=== PATIENT | female | born 1955 | race Caucasian/White ===

== ENCOUNTER 2016-10-13 14:16 | Inpatient (IN) ==
[2016-10-13] MEDS ORDERED: Ipratropium/Albuterol Neb 3 ML IH ONE ×2 (15:13→16:50)
[2016-10-13] MEDS ORDERED: Nitroglycerin 0.4 MG TAB.SUBL SL STA (15:13)
[2016-10-13 16:12] LABS: Basophils % 0.3 %; Eosinophils % 0.1 %; Hematocrit 32.2 % (35.3-44.9); Hemoglobin 10.7 g/dL (11.5-15.4); Immature Granulocytes % 1.1 % (0-4); Lymphocytes # 1.6 K/mcL (0.6-4.6); Mean Corpuscular HGB Conc 33.2 g/dL (31.6-35.5); Mean Corpuscular Volume 84.3 fL (83.0-100.0); Mean Platelet Volume 9.6 fL (9.4-12.4); Monocytes # 1.2 K/mcL (0.0-1.3); Neutrophils # 10.5 K/mcL (1.6-8.9); Platelet Count 323 K/mcL (140-400); Red Blood Count 3.82 M/mcL (3.82-4.97); Red Cell Distribution Width 13.2 % (11.5-14.5); Segmented Neutrophils % 77.5 %
[2016-10-13 16:26] LABS: Calcium 9.1 mg/dL (8.6-10.8); Potassium 4.3 mEq/L (3.5-4.5)
--- NOTE | 2016-10-13 16:38 | Emergency Department Note ---
Disposition Clinical Impression: Acute exacerbation of chronic obstructive airways disease, Hypertension Disposition: Admitted As Inpatient Condition: Good Time of Disposition: 18:23 SOB HPI - General Chief Complaint: ED Shortness of Breath/Dyspnea Stated Complaint: SCOTT Time Seen by Provider: 10/13/16 14:45 Source: patient, family Mode of arrival: ambulatory Limitations: no limitations Nursing Notes Reviewed: Yes Vital Signs Reviewed: Yes - History of Present Illness 61-year-old female with 2 weeks of nonproductive cough, shortness of breath, and orthopnea. Over these 2 weeks she has been seen in the urgent care twice and tried Rocephin, Cipro, and prednisone without significant improvement. Occasionally she feels this heaviness with her symptoms, but has not had any chest pain. She denies any productive cough, fevers, headache or confusion, neck pain, GI or symptoms, rashes or edema. She denies any estrogen use, recent travel or immobilization or surgery. Pt Subjective Complaint: shortness of breath - Related Data Home Medications Medication Instructions Recorded Confirmed Cholecalciferol (Vitamin D3) 2,000 unit PO DAILY 04/29/15 10/13/16 [Vitamin D3] Furosemide [Lasix] 40 mg PO BID 04/29/15 10/13/16 Labetalol HCl [Trandate] 300 mg PO BID 04/29/15 10/13/16 Losartan Potassium [Cozaar] 50 mg PO BID 04/29/15 10/13/16 Potassium Chloride [Klor-Con 10] 10 meq PO DAILY 04/29/15 10/13/16 Ramipril [Altace] 10 mg PO BID 04/29/15 10/13/16 Cephalexin [Keflex] 500 mg PO TID 10/13/16 10/13/16 CloNIDine HCl [Clonidine HCl] 0.3 mg PO TID 10/13/16 10/13/16 Fish Oil/Dha/Epa [Fish Oil 1,200 1 each PO DAILY 10/13/16 10/13/16 mg Fish Oil] Allergies Allergy/AdvReac Type Severity Reaction Status Date / Time amlodipine Allergy Nausea Verified 10/13/16 18:38 Hydralazine Allergy Nausea Verified 10/13/16 18:38 All systems ED: reviewed and negative except as stated. Past Medical History - Past Medical History Medical history: Reports: hypertension, renal disease Surgical history: Reports: , cholecystectomy, hysterectomy Psychiatric history: Reports: no psych history - Social History Smoking Status: Never smoker Smokeless Tobacco Status: No Alcohol use: Reports: none Drug use: Reports: none Physical Exam - General Limitations: no limitations General appearance: alert, in no apparent distress Course - Reevaluation(s) Reevaluation #1: Patient feeling much better after repeat DuoNeb's, but unfortunately she became very dyspneic with tachypnea to 26 and oxygen saturation 91% with ambulation. Patient does have congestive heart failure, but her primary issue on this stay appears to be COPD exacerbation. We will treat her with steroids and admit her to the hospitalist for further management. The patient will likely need an ultrasound to further evaluate her congestive heart failure. Time: 18:23 Reevaluation #2: Accepted by Dr. Leger for further mgmt. Time: 18:56 Vital Signs Temperature 99.1 F 10/13/16 14:18 Pulse Rate 89 10/13/16 14:18 Respiratory Rate 20 10/13/16 14:18 Blood Pressure 220/121 10/13/16 14:18 O2 Sat by Pulse Oximetry 92 L 10/13/16 14:18 Temperature 99.1 F 10/13/16 14:18 Pulse Rate 75 10/13/16 19:27 Respiratory Rate 18 10/13/16 19:27 Blood Pressure 220/110 10/13/16 19:27 O2 Sat by Pulse Oximetry 97 10/13/16 19:27 Oxygen Delivery Oxygen Delivery Nasal Cannula Shortness of Breath/Dyspnea - Lab Data Result diagrams: 10/13/16 15:38 10/13/16 15:38 Lab Results 10/13/16 10/13/16 10/13/16 Range/Units 15:38 15:38 15:38 WBC 13.5 H (4.3-11.1) K/mcL RBC 3.82 (3.82-4.97) M/mcL Hgb 10.7 L (11.5-15.4) g/dL Hct 32.2 L (35.3-44.9) % MCV 84.3 (83.0-100.0) fL MCH 28.0 (28.0-33.3) pg MCHC 33.2 (31.6-35.5) g/dL RDW 13.2 (11.5-14.5) % Plt Count 323 (140-400) K/mcL MPV 9.6 (9.4-12.4) fL Immature Gran % 1.1 (0-4) % Seg Neutrophils % 77.5 % Lymphocytes % 12.0 % Monocytes % 9.0 % Eosinophils % 0.1 % Basophils % 0.3 % Neutrophils # 10.5 H (1.6-8.9) K/mcL Lymphocytes # 1.6 (0.6-4.6) K/mcL Monocytes # 1.2 (0.0-1.3) K/mcL Eosinophils # 0.0 (0.0-0.6) K/mcL Basophils # 0.0 (0.0-0.2) K/mcL Sodium 140 (136-145) mEq/L Potassium 4.3 (3.5-4.5) mEq/L Chloride 103 (98-109) mEq/L Carbon Dioxide 24 (19-29) mEq/L BUN 49 H (7-20) mg/dL Creatinine 1.92 H (0.57-1.11) mg/dL Est GFR ( Amer) 32 L (> 60) Est GFR (Non-Af Amer) 27 L (> 60) BUN/Creatinine Ratio 26 (6-26) Glucose 107 H (70-99) mg/dL Calculated Osmolality 303 H (280-300) Calcium 9.1 (8.6-10.8) mg/dL Troponin I (0-0.03) ng/mL B-Natriuretic Peptide 200 H (0-100) pg/mL 10/13/16 Range/Units 15:38 WBC (4.3-11.1) K/mcL RBC (3.82-4.97) M/mcL Hgb (11.5-15.4) g/dL Hct (35.3-44.9) % MCV (83.0-100.0) fL MCH (28.0-33.3) pg MCHC (31.6-35.5) g/dL RDW (11.5-14.5) % Plt Count (140-400) K/mcL MPV (9.4-12.4) fL Immature Gran % (0-4) % Seg Neutrophils % % Lymphocytes % % Monocytes % % Eosinophils % % Basophils % % Neutrophils # (1.6-8.9) K/mcL Lymphocytes # (0.6-4.6) K/mcL Monocytes # (0.0-1.3) K/mcL Eosinophils # (0.0-0.6) K/mcL Basophils # (0.0-0.2) K/mcL Sodium (136-145) mEq/L Potassium (3.5-4.5) mEq/L Chloride (98-109) mEq/L Carbon Dioxide (19-29) mEq/L BUN (7-20) mg/dL Creatinine (0.57-1.11) mg/dL Est GFR ( Amer) (> 60) Est GFR (Non-Af Amer) (> 60) BUN/Creatinine Ratio (6-26) Glucose (70-99) mg/dL Calculated Osmolality (280-300) Calcium (8.6-10.8) mg/dL Troponin I 0.02 (0-0.03) ng/mL B-Natriuretic Peptide (0-100) pg/mL - EKG Data EKG attestation: Yes I reviewed and interpreted this EKG. EKG results narrative: Normal sinus rhythm at 73 with normal axis and intervals. No ST elevation or depression. No T-wave murmur or flattening. Precordial T waves are slightly prominent. They are somewhat more prominent than 07/23/2010. Attestation Statement - Attestation Attestation: Dr Singh note: Patient was seen in conjunction with resident Dr. Albin Mckenzie; please see his chart for complete documentation. I spent [id number] time with the patient and I agree with the patient's treatment and disposition. X-ray and blood work obtained and reviewed. Patient has persistent tachypnea and tachycardia. Symptoms have worsened over the past few days. Admission due to her progressive symptoms and comorbidities admitted in stable condition.
[2016-10-13] MEDS ORDERED: methylPREDNISolone 125 MG/2 ML VIAL IVP ONE (18:21)
[2016-10-13] MEDS ORDERED: cloNIDine HCl 0.1 MG TABLET PO ONE (18:39)
[2016-10-13] MEDS ORDERED: Furosemide 40 MG/4 ML VIAL IVP ONE (18:55)
[2016-10-13] MEDS ORDERED: *HR* Metoprolol 5 MG/5 ML VIAL IVP ONE (20:10)
[2016-10-13] MEDS ORDERED: Acetaminophen 325 MG TABLET PO PRN (20:32)
[2016-10-13] MEDS ORDERED: Naloxone 0.4 MG/ML INJ IVP PRN (20:32)
[2016-10-13] MEDS ORDERED: *HR* Promethazine 25 MG/ML VIAL IVP PRN (20:32)
[2016-10-13] MEDS ORDERED: *HR* OxyCODONE Immed Rel 5 MG TABLET PO PRN (20:32)
[2016-10-13] MEDS ORDERED: Albuterol 2.5 MG/3 ML NEBULIZER IH PRN (20:32)
[2016-10-13] MEDS ORDERED: *HR* Morphine 2 MG/ML SYRINGE IVP PRN (20:32)
[2016-10-13] MEDS ORDERED: *HR* LORazepam 2 MG/ML VIAL IVP STA (20:41)
[2016-10-13] MEDS ORDERED: Furosemide 40 MG TABLET PO SCH (21:00)
[2016-10-13 21:42] LABS: INR 1.1; Prothrombin Time 12.1 Seconds (9.4-12.1)
[2016-10-13 21:45] LABS: Activated Partial Thrombo Time 27.2 Seconds (26.0-36.0)
[2016-10-13 21:49] LABS: Magnesium 2.1 mg/dL (1.6-2.6); Phosphorous 4.7 mg/dL (2.3-4.7)
[2016-10-13] MEDS ORDERED: 0.9 % Sodium Chloride 500 ML IVC ONE (21:57)
[2016-10-13] MEDS ORDERED: 0.9 % Sodium Chloride 1,000 ML IVC SCH (22:15)
[2016-10-13] MEDS: Ipratropium/Albuterol Neb 3 ML IH SCH (22:26)
--- NOTE | 2016-10-13 22:59 | Internal Med History&Physical ---
<Jovana García - Last Filed: 10/13/16 23:52> Date of Encounter: 10/13/16 Time of Encounter: 21:00 Assessment and Plan (1) Acute respiratory failure with hypoxia Current visit: Yes Status: Acute When patient presented to the ED, her Oxygen sat was 92% and was placed on 2L nasal canula, which brought her O2 sat up to 97%. Etiology likely due to underlying lung infection. CXR showed cardiomegaly with pulmonary vascular congestion and edema. Consider possible CHF as underlying cause. Patient says she has had a previous diagnosis of CHF, no records of echo were found- limited echo pending Induced sputum culture pending Levaquin 750 daily- pharmacy to dose renally 40mg IV methylprednisolone Q6HR (2) Hypertensive urgency Current visit: Yes Status: Acute upon admission, patient's blood pressure was 220/110. Etiology likely multifactorial insetting of bronchitis, CHF, pulmonary edema. Continue clonidine, lasix, Imdur, Lisinopril Trend Cr, watch for signs of any end organ damage. (3) IgA nephropathy Current visit: Yes Status: Acute By History. Patient states that she has IgA nephropathy and sees Dr. Cannon in [place]. No records were found. (4) WESLY (acute kidney injury) Current visit: Yes Status: Acute Patient's Cr today is 1.92. Her baseline Cr is around 1.4 Etiology likely multifactorial in setting of underlying kidney disease and lung infection. 500mL bolus given, followed by continuous IV hydration at 80ml/hr Avoid nephrotoxic agents. (5) DVT prophylaxis Current visit: Yes Status: Acute Heparin 5,000 units SQ BID Internal Medicine - H&P: HPI Chief complaint: shortness of breath Admitted From: Home Plans for Post Hospital Care: Home History of present illness: Ms. Barnes is a 61 year old female with PMHx of HTN, IgA nephropathy (sees Dr. Cannon in [place]), CHF presented to the ED with CC of shortness of breath. She states that she has had bronchitis for a couple of weeks. SHe went to urgent care on September 29 and received prednisone, ciprofloxacin, ProAir. She was having symptoms of dry cough with occasional white/clear sputum production, wheezing, and being short of breath with very little exertion. These symptoms worsened despite steroids and antibiotics. She went back to urgent care on Oct 11 because of worsening symptoms. At that time, she received a steroid shot and an antibiotic shot (she does not recall the name). She was also prescribe cephalexin. She reports that CXR at urgent care did not show any acute process. The patient had not missed any doses of antibiotics that she received from urgent care. Patient also reports shortness of breath while laying flat and has to sleep with pillows propped up at night. Patient denies hemoptysis, chest pain, chills. She states that her left leg sometimes swells. She was told that during a previous hospitalization several years ago, she was diagnosed with CHF. No records were found. Social History: smoked as a teenager for a couple years, but has not smoked since. She denies alcohol and illicit drug use. Surgical history: 2 C-sections, hysterectomy 4 yeras ago, gall bladder surgery. Family History: Father: has COPD/Emphysema, CHF. Still living at 84 years old. Mother: at age 76 from pneumothorax from fall. Had DM , HTN. Sister: alive: has HTN, had thyroidectomy Brother: alive, has HTN Past Med Surg Social Fam HX - Past Medical History Medical history: hypertension, renal disease Psychiatric history: no psych history - Past Surgical History Surgical History: , cholecystectomy, hysterectomy - Social History Smoking Status: Never smoker Smokeless Tobacco Status: No Alcohol use: none Drug use: none - Family History Mother Living Status: Hx Family Endocrine Disorder: Yes (diabetes) Father Hx Family Cardiac Disorders: Yes Hx Family Respiratory Disorders: Yes Internal Medicine - H&P: Meds Cholecalciferol (Vitamin D3) [Vitamin D3] 2,000 unit PO DAILY 04/29/15 [History] Furosemide [Lasix] 40 mg PO BID 04/29/15 [History] Labetalol HCl [Trandate] 300 mg PO BID 04/29/15 [History] Losartan Potassium [Cozaar] 50 mg PO BID 04/29/15 [History] Potassium Chloride [Klor-Con 10] 10 meq PO DAILY 04/29/15 [History] Ramipril [Altace] 10 mg PO BID 04/29/15 [History] Cephalexin [Keflex] 500 mg PO TID 10/13/16 [History] CloNIDine HCl [Clonidine HCl] 0.3 mg PO TID 10/13/16 [History] Fish Oil/Dha/Epa [Fish Oil 1,200 mg Fish Oil] 1 each PO DAILY 10/13/16 [History] Allergies amlodipine Allergy (Verified 10/13/16 18:38) Nausea Hydralazine Allergy (Verified 10/13/16 18:38) Nausea All Systems PM: A 10-system review of systems was performed and is negative for pertinent findings except as documented above in the HPI. - Constitutional Constitutional: fatigue, fever(s), lethargy, no anorexia, no chills - EENT Eyes: no blurry vision, no change in vision Nose, mouth and throat: no dry mouth - Cardiovascular Cardiovascular ROS IM: orthopnea, no chest pain - Respiratory Respiratory: cough, dyspnea, wheezing - Gastrointestinal Gastrointestinal: no abdominal pain - Genitourinary Genitourinary: no hematuria - Musculoskeletal Musculoskeletal ROS IM: no arthralgias, no back pain, no joint swelling - Constitutional Vitals: Temp Pulse Resp BP Pulse Ox 98.2 F 75 18 210/98 98 10/13/16 21:46 10/13/16 21:46 10/13/16 22:27 10/13/16 21:46 10/13/16 22:27 General appearance: Present: A&O X 3, pleasant, no acute distress, answers questions appropriately - Head Head exam: Present: atraumatic, normocephalic - Neck Neck exam general surgery: Present: trachea midline - Respiratory Respiratory exam: Present: rhonchi, wheezes - Cardiovascular Cardiovascular exam: Present: RRR, +S1, +S2 - GI/Abdominal GI/Abdominal exam: Present: soft, no peritoneal signs. Absent: guarding, tenderness - Extremities Exam Extremities exam: Absent: cyanotic, pedal edema, tenderness - Neurological Exam Neurological exam: Present: alert, oriented X3, no focal deficits Internal Med - H&P Results - Labs CBC & Chem 7: 10/13/16 15:38 10/13/16 15:38 Labs: Cardiac Enzymes 10/13/16 Range/Units 21:29 Troponin I 0.01 (0-0.03) ng/mL <Kel Ramos - Last Filed: 10/14/16 04:12> Date of Encounter: 10/13/16 Assessment and Plan (1) Acute diastolic (congestive) heart failure Current visit: Yes Status: Acute . (2) Malignant hypertensive urgency Current visit: Yes Status: Acute . (3) Acute kidney injury superimposed on CKD Current visit: Yes Status: Acute . (4) Morbid obesity with BMI of 40.0-44.9, adult Current visit: Yes Status: Chronic . (5) Systemic inflammatory response syndrome (SIRS) Current visit: Yes Status: Acute . (6) Nonspecific syndrome suggestive of viral illness Current visit: Yes Status: Acute . (7) Viral upper respiratory tract infection with cough Current visit: Yes Status: Acute . (8) Hypertensive cardiomyopathy Current visit: Yes Status: Chronic . Qualifiers: Heart failure presence: with heart failure Qualified Code(s): I11.0 - Hypertensive heart disease with heart failure (9) Acute exacerbation of chronic obstructive airways disease Current visit: Yes Status: Acute . (10) Acute respiratory failure with hypoxia Current visit: Yes Status: Acute (11) Hypertension Current visit: Yes Status: Chronic . Qualifiers: Hypertension type: unspecified secondary hypertension Qualified Code(s): I15.9 - Secondary hypertension, unspecified; I15 - Secondary hypertension (12) Nephrotic range proteinuria Current visit: Yes Status: Chronic . (13) IgA nephropathy Current visit: Yes Status: Acute Internal Medicine - H&P: HPI History of present illness: Ms. Barnes is a 61 year old female The patient was visited and interviewed and examined. I examined this patient and my medical decision-making was reviewed with the Resident Physician. I agree with the documented findings, disposition and treatment plan as described except to the extent set forth below. Cumulative laboratory and radiographic data base were reviewed and considered and discussed. Pertinent ancillary medical records including ECW and PCI documentation, when available was reviewed and considered. Given the patient's presenting concerns, past medical history, clinical findings and symptoms, she is admitted to medical further evaluation and disposition. Orders were written as per the computerized physician order increase system............... Past Med Surg Social Fam HX - Past Medical History Source: old records reviewed Medical history: arthritis, cardiomyopathy, osteoporosis, renal disease, other Psychiatric history: other - Past Surgical History Surgical History: , cholecystectomy, hysterectomy, orthopedic, other ( left elbow surgery.), LINDA/BSO, other (Tubal ligation.) All Systems PM: A 10-system review of systems was performed and is negative for pertinent findings except as documented above in the HPI. - Constitutional Vitals: Temp Pulse Resp BP Pulse Ox 97.2 F L 73 18 165/70 98 10/14/16 03:02 10/14/16 03:02 10/14/16 03:11 10/14/16 03:02 10/14/16 03:11 Internal Med - H&P Results - Labs CBC & Chem 7: 10/13/16 15:38 10/13/16 15:38 Labs: Cardiac Enzymes 10/13/16 Range/Units 21:29 Troponin I 0.01 (0-0.03) ng/mL Urine 10/14/16 Range/Units 03:08 Urine Color Yellow (Yellow) Urine Clarity Clear (Clear) Urine pH 6.0 (5.0-8.0) pH Units Ur Specific [place] 1.009 L (1.010-1.025) Urine Protein >=300 H (Neg-Trace) mg/dL Urine Glucose (UA) Normal (Normal) mg/dL - ABG Interpretation ABG results: 10/14/16 00:49 VBG pH 7.38 VBG pCO2 50 VBG pO2 50 H VBG HCO3 29.6 H - Impressions Vital Signs Temp Pulse Resp BP Pulse Ox 10/14/16 03:11 18 98 10/14/16 03:02 97.2 F L 73 17 165/70 97 10/13/16 23:56 98.1 F 89 18 214/102 95 10/13/16 22:27 18 98 10/13/16 21:46 98.2 F 75 16 210/98 96 10/13/16 21:12 20 220/107 10/13/16 19:27 75 18 220/110 97 10/13/16 18:00 75 18 216/109 96 10/13/16 17:00 75 18 196/99 97 10/13/16 15:20 16 97 10/13/16 14:25 95 10/13/16 14:18 99.1 F 89 20 220/121 92 L Intake and Output 10/13/16 10/13/16 10/14/16 15:59 23:59 07:59 Intake Total 0 / 0 Output Total 800 / 800 Balance 0 / 0 -800 / -800 Intake: Oral 0 / 0 Output: Urine 800 / 800 Other: # Voids 1 Weight 113.398 kg 114 kg Short CBC 10/13/16 Range/Units 15:38 WBC 13.5 H (4.3-11.1) K/mcL Hgb 10.7 L (11.5-15.4) g/dL Hct 32.2 L (35.3-44.9) % Plt Count 323 (140-400) K/mcL Neutrophils # 10.5 H (1.6-8.9) K/mcL BMP 10/13/16 Range/Units 15:38 Sodium 140 (136-145) mEq/L Potassium 4.3 (3.5-4.5) mEq/L Chloride 103 (98-109) mEq/L Carbon Dioxide 24 (19-29) mEq/L BUN 49 H (7-20) mg/dL Creatinine 1.92 H (0.57-1.11) mg/dL Glucose 107 H (70-99) mg/dL Calcium 9.1 (8.6-10.8) mg/dL Cardiac Enzymes 10/13/16 10/13/16 Range/Units 21:29 15:38 Troponin I 0.01 0.02 (0-0.03) ng/mL Urine 10/14/16 Range/Units 03:08 Urine Color Yellow (Yellow) Urine Clarity Clear (Clear) Urine pH 6.0 (5.0-8.0) pH Units Ur Specific [place] 1.009 L (1.010-1.025) Urine Protein >=300 H (Neg-Trace) mg/dL Urine Glucose (UA) Normal (Normal) mg/dL 10/14/16 00:49 VBG pH 7.38 VBG pCO2 50 VBG pO2 50 H VBG HCO3 29.6 H Abnormal lab results WBC 13.5 K/mcL (4.3-11.1) H 10/13/16 15:38 Hgb 10.7 g/dL (11.5-15.4) L 10/13/16 15:38 Hct 32.2 % (35.3-44.9) L 10/13/16 15:38 Neutrophils # 10.5 K/mcL (1.6-8.9) H 10/13/16 15:38 VBG pO2 50 mmHg (25-40) H 10/14/16 00:49 VBG HCO3 29.6 mEq/L (21-27) H 10/14/16 00:49 BUN 49 mg/dL (7-20) H 10/13/16 15:38 Creatinine 1.92 mg/dL (0.57-1.11) H 10/13/16 15:38 Est GFR ( Amer) 32 (> 60) L 10/13/16 15:38 Est GFR (Non-Af Amer) 27 (> 60) L 10/13/16 15:38 Glucose 107 mg/dL (70-99) H 10/13/16 15:38 Calculated Osmolality 303 (280-300) H 10/13/16 15:38 B-Natriuretic Peptide 200 pg/mL (0-100) H 10/13/16 15:38 Ur Specific [place] 1.009 (1.010-1.025) L 10/14/16 03:08 Urine Protein >=300 mg/dL (Neg-Trace) H 10/14/16 03:08 Urine Blood Large (Negative) H 10/14/16 03:08 Urine Microscopic RBC 15-30 per hpf (0-3) H 10/14/16 03:08 Ur Squamous Epith Cells Many per lpf (None-Few) H 10/14/16 03:08 Allergies Allergy/AdvReac Type Severity Reaction Status Date / Time amlodipine Allergy Nausea Verified 10/13/16 18:38 Hydralazine Allergy Nausea Verified 10/13/16 18:38 Laboratory Results WBC 13.5 K/mcL (4.3-11.1) H 10/13/16 15:38 RBC 3.82 M/mcL (3.82-4.97) 10/13/16 15:38 Hgb 10.7 g/dL (11.5-15.4) L 10/13/16 15:38 Hct 32.2 % (35.3-44.9) L 10/13/16 15:38 MCV 84.3 fL (83.0-100.0) 10/13/16 15:38 MCH 28.0 pg (28.0-33.3) 10/13/16 15:38 MCHC 33.2 g/dL (31.6-35.5) 10/13/16 15:38 RDW 13.2 % (11.5-14.5) 10/13/16 15:38 Plt Count 323 K/mcL (140-400) 10/13/16 15:38 MPV 9.6 fL (9.4-12.4) 10/13/16 15:38 Immature Gran % 1.1 % (0-4) 10/13/16 15:38 Seg Neutrophils % 77.5 % 10/13/16 15:38 Lymphocytes % 12.0 % 10/13/16 15:38 Monocytes % 9.0 % 10/13/16 15:38 Eosinophils % 0.1 % 10/13/16 15:38 Basophils % 0.3 % 10/13/16 15:38 Neutrophils # 10.5 K/mcL (1.6-8.9) H 10/13/16 15:38 Lymphocytes # 1.6 K/mcL (0.6-4.6) 10/13/16 15:38 Monocytes # 1.2 K/mcL (0.0-1.3) 10/13/16 15:38 Eosinophils # 0.0 K/mcL (0.0-0.6) 10/13/16 15:38 Basophils # 0.0 K/mcL (0.0-0.2) 10/13/16 15:38 PT 12.1 Seconds (9.4-12.1) 10/13/16 21:29 INR 1.1 10/13/16 21:29 APTT 27.2 Seconds (26.0-36.0) 10/13/16 21:29 VBG pH 7.38 pH Units (7.32-7.42) 10/14/16 00:49 VBG pCO2 50 mmHg (41-51) 10/14/16 00:49 VBG pO2 50 mmHg (25-40) H 10/14/16 00:49 VBG HCO3 29.6 mEq/L (21-27) H 10/14/16 00:49 Sodium 140 mEq/L (136-145) 10/13/16 15:38 Potassium 4.3 mEq/L (3.5-4.5) 10/13/16 15:38 Chloride 103 mEq/L (98-109) 10/13/16 15:38 Carbon Dioxide 24 mEq/L (19-29) 10/13/16 15:38 BUN 49 mg/dL (7-20) H 10/13/16 15:38 Creatinine 1.92 mg/dL (0.57-1.11) H 10/13/16 15:38 Est GFR ( Amer) 32 (> 60) L 10/13/16 15:38 Est GFR (Non-Af Amer) 27 (> 60) L 10/13/16 15:38 BUN/Creatinine Ratio 26 (6-26) 10/13/16 15:38 Glucose 107 mg/dL (70-99) H 10/13/16 15:38 Calculated Osmolality 303 (280-300) H 10/13/16 15:38 Calcium 9.1 mg/dL (8.6-10.8) 10/13/16 15:38 Phosphorus 4.7 mg/dL (2.3-4.7) 10/13/16 21:29 Magnesium 2.1 mg/dL (1.6-2.6) 10/13/16 21:29 Troponin I 0.01 ng/mL (0-0.03) 10/13/16 21:29 B-Natriuretic Peptide 200 pg/mL (0-100) H 10/13/16 15:38 Urine Color Yellow (Yellow) 10/14/16 03:08 Urine Clarity Clear (Clear) 10/14/16 03:08 Urine pH 6.0 pH Units (5.0-8.0) 10/14/16 03:08 Ur Specific [place] 1.009 (1.010-1.025) L 10/14/16 03:08 Urine Protein >=300 mg/dL (Neg-Trace) H 10/14/16 03:08 Urine Glucose (UA) Normal mg/dL (Normal) 10/14/16 03:08 Urine Ketones Negative mg/dL (Negative) 10/14/16 03:08 Urine Blood Large (Negative) H 10/14/16 03:08 Urine Nitrite Negative (Negative) 10/14/16 03:08 Urine Bilirubin Negative (Negative) 10/14/16 03:08 Urine Urobilinogen Normal mg/dL (Normal) 10/14/16 03:08 Ur Leukocyte Esterase Negative (Negative) 10/14/16 03:08 Urine Microscopic RBC 15-30 per hpf (0-3) H 10/14/16 03:08 Urine Microscopic WBC 0-3 per hpf (0-3) 10/14/16 03:08 Ur Squamous Epith Cells Many per lpf (None-Few) H 10/14/16 03:08 Urine Bacteria None Seen per hpf (None-Few) 10/14/16 03:08 Hyaline Casts None Seen per lpf (None-Few) 10/14/16 03:08 Impressions Chest X-Ray 10/13/16 14:45 IMPRESSION: Pulmonary edema D/ / Ag May MD / Ag May MD Interpreting Provider: Ag May MD - Attending Attestation My signature below is to certify that this patient is under my care and that I, or the Resident Physician working with me, has had a [id number] encounter with this patient. Plan of care has been reviewed and discussed in detail with the patient. Questions addressed. Aunt care directive discussion briefly addressed. The patient is not to clear any healthcare restrictions at this time. Outpatient medications schedules will be reviewed, confirmed associated as appropriate. Reconciliation of home treatments including adjustments, substitutions and reintroduction into the treatment regimen will address necessary maintenance therapies for chronic pre-existing medical conditions. Smoking cessation counseling for the addressed. The patient declared herself as nonsmoker. Hospital course is dependent upon collective clinical findings, treatment response and potential consultative interventions. The patient is at risk for further acute clinical decline and morbidity given presenting chief complaints, clinical findings and associated comorbidities. Condition is serious. Prognosis is cautiously optimistic. CODE STATUS is full.
[2016-10-13] MEDS ORDERED: Levofloxacin 750 MG/150 ML 750 MG/150 ML BAG IVPB SCH (23:00)
[2016-10-13] MEDS: cloNIDine HCl 0.1 MG TABLET PO SCH (23:11)
[2016-10-13] MEDS: MethylPREDNISolone 40 MG/ML VIAL IVP SCH (23:11)
[2016-10-13] MEDS: Lisinopril 20 MG TABLET PO SCH (23:11)
[2016-10-14 01:46] LABS: VBG HCO3 29.6 mEq/L (21-27); VBG PH 7.38 pH Units (7.32-7.42)
[2016-10-14] MEDS: Ipratropium/Albuterol Neb 3 ML IH SCH ×4 (03:11→22:34)
[2016-10-14 03:19] LABS: Bilirubin,Urine Negative (Negative); Blood,Urine Large (Negative); Clarity,Urine Clear (Clear); Color,Urine Yellow (Yellow); Glucose,Urine (UA) Normal (Normal); Ketones,Urine Negative (Negative); Leukocyte Esterase,Urine Negative (Negative); Nitrite,Urine Negative (Negative); Protein,Urine >=300 mg/dL (Neg-Trace); Specific Gravity,Urine 1.009 (1.010-1.025); Urobilinogen,Urine Normal (Normal)
[2016-10-14 03:20] LABS: Bacteria,Urine None Seen per hpf (None-Few); Hyaline Casts,Urine None Seen per lpf (None-Few); RBC,Urine 15-30 per hpf (0-3); Squamous Epithelial Cell,Urine Many per lpf (None-Few); WBC,Urine 0-3 per hpf (0-3)
[2016-10-14] MEDS: *HR* Heparin 5,000 UNIT/ML VIAL SQ SCH ×4 (03:23→22:22)
[2016-10-14 04:00] LABS: Hematocrit 31.1 % (35.3-44.9); Hemoglobin 10.2 g/dL (11.5-15.4); Mean Corpuscular HGB Conc 32.8 g/dL (31.6-35.5); Mean Corpuscular Hemoglobin 27.5 pg (28.0-33.3); Mean Corpuscular Volume 83.8 fL (83.0-100.0); Mean Platelet Volume 9.4 fL (9.4-12.4); Platelet Count 321 K/mcL (140-400); Red Blood Count 3.71 M/mcL (3.82-4.97); Red Cell Distribution Width 13.2 % (11.5-14.5)
[2016-10-14 04:18] LABS: Calcium 8.7 mg/dL (8.6-10.8); Chol/HDL Ratio 7.2 (0-4.9); Potassium 4.6 mEq/L (3.5-4.5)
[2016-10-14 05:34] LABS: Adenovirus Not Detected (Not Detect); Bordetella Pertussis Not Detected (Not Detect); Chlamydophila pneumoniae Not Detected (Not Detect); Coronavirus 229E Not Detected (Not Detect); Coronavirus HKU1 Not Detected (Not Detect); Coronavirus NL63 Not Detected (Not Detect); Coronavirus OC43 Not Detected (Not Detect); Human Metapneumovirus Not Detected (Not Detect); Human Rhinovirus/Enterovirus Not Detected (Not Detect); Influenza A Subtype 2009 H1 Not Detected (Not Detect); Influenza A Untypeable Not Detected (Not Detect); Influenza B Not Detected (Not Detect); Mycoplasma pneumoniae Not Detected (Not Detect); Parainfluenza Virus 1 Not Detected (Not Detect); Parainfluenza Virus 2 Not Detected (Not Detect); Parainfluenza Virus 3 Not Detected (Not Detect); Parainfluenza Virus 4 Not Detected (Not Detect); Respiratory Syncytial Virus ***DETECTED*** (Not Detect)
[2016-10-14] MEDS: MethylPREDNISolone 40 MG/ML VIAL IVP SCH ×2 (05:55→10:06)
[2016-10-14] MEDS ORDERED: predniSONE 20 MG TABLET PO SCH (09:00)
[2016-10-14] MEDS: cloNIDine HCl 0.1 MG TABLET PO SCH ×3 (10:05→19:33)
[2016-10-14] MEDS: Lisinopril 20 MG TABLET PO SCH ×2 (10:06→19:33)
[2016-10-14] MEDS: Furosemide 40 MG/4 ML VIAL IVP SCH ×2 (10:06→16:02)
--- NOTE | 2016-10-14 11:13 | ECHO - Doppler Report ---
Echocardiogram Name: Bridgette Barnes Date of Study: 10/14/2016 Date: 1955 Ht: 64.0 in Medical Record#: [id number] Age: 61 Wt: 251.0 lb Gender: Female BSA: 2.15 Order #: [id number] Location: [facility] Room #: 2A23 Reading Physician: Quan Mckinley MD, [facility]ED WITH [facility] Community Health Advisor: Manuela Lassiter RVT Ordering Physician: Jovana García DO Primary Physician: None Indications: Congestive heart failure Impressions: Normal left ventricular size and systolic function, LVEF 60%. Moderate left ventricular diastolic dysfunction. Normal right ventricular size and function. Mildly dilated left atrium. Mild mitral regurgitation. Unable to estimate RVSP due to lack of TR jet. Left Ventricular Wall Motion: Rest Echo Findings All wall segments showed normal motion. Findings: Study Quality * Suboptimal echo windows. ECG Findings * Normal sinus rhythm. Left Ventricle * Normal left ventricular size and systolic function, LVEF 60%. * Normal LV wall thickness. * Moderate left ventricular diastolic dysfunction. Right Ventricle * Normal right ventricular size and function. Left Atrium * Mildly dilated left atrium. Right Atrium * Normal right atrial size. Aorta * Normally sized aortic root. Pericardium * There is a trivial pericardial effusion present. IVC * Normal IVC dimensions and inspiratory collapse. Aortic Valve * Aortic valve not well visualized. * No aortic stenosis. * No aortic regurgitation. Mitral Valve * Mild mitral annular calcification * No mitral stenosis. * Mild mitral regurgitation. Tricuspid Valve * Tricuspid valve not well visualized. * No tricuspid stenosis. * Trace tricuspid regurgitation. * Unable to estimate RVSP due to lack of TR jet. Pulmonic Valve * Pulmonic valve not well visualized. * No pulmonic stenosis. * No pulmonic regurgitation. History Hypertension Family History of CAD Congestive Heart Failure Measurements: BP: 185/ 83 2D Normal Values RVIDd: 3.20 cm IVSd: .80 cm 0.6 - 1.0 cm LVIDd: 5.20 cm 3.7 - 5.6 cm LVPWd: .90 cm 0.6 - 1.1 cm LVIDs: 3.20 cm 1.5 - 3.6 cm AO: 2.70 cm < 4.0 cm LA volume: 80 Mitral Valve Peak E:1.50 m/sec Peak A:1.47 m/sec E/A Ratio:1 Updated by Quan Mckinley MD, [facility] on 10/14/2016 11:07:57 AM electronically signed on 10/14/2016 11:08:42 AM with status of Final Wall Motion Sorto: 1=Normal, 2=Hypokinesis, 3=Akinesis, 4=Dyskinesis, 5=Aneurysmal, 6=Hyperkinetic, X=Not Visualized (Blank)=Missing
--- NOTE | 2016-10-14 11:29 | Electrocardiograph Report ---
[facility] Test Date: 2016-10-13 Pat Name: Bridgette Barnes Department: 104 Room: 2A23 Gender: F Hog Counter: MEHUL : 1955 Requested By: Adolfo Mckenzie Order Number: [id number] Reading MD: Edmar Giraldo MD Measurements Intervals [place] Rate: 73 P: 26 TN: 169 QRS: -11 QRSD: 93 T: 17 QT: 378 QTc: 404 Interpretive Statements SINUS RHYTHM Electronically Signed On 10-14-16 11:27:13 EST by Edmar Giraldo MD
[2016-10-14] MEDS ORDERED: *HR* OxyCODONE Immed Rel 5 MG TABLET PO PRN ×2 (12:23→12:24)
[2016-10-14] MEDS ORDERED: Ondansetron 4 MG/2 ML VIAL IVP PRN (13:10)
--- NOTE | 2016-10-14 15:36 | Internal Med Progress Note ---
Date of Encounter: 10/14/16 Time of Encounter: 11:30 - Assessment and plan (1) Pulmonary edema Current Visit: Yes Status: Acute Assessment and plan: Likely related to hypertensive urgency from poorly controlled hypertension at baseline with recent acute bronchitis. Patient completed at least 2 courses of steroids and antibiotics (ciprofloxacin, cephalexin) as an outpatient with no improvement in shortness of breath. To rule out cardiogenic pulmonary edema. Discontinue IV hydration and Start IV Lasix along with fluid restriction and urine output monitoring. Check 2-D echocardiogram to assess left ventricular systolic function and EF. Hold antibiotics and IV steroids at this time as it does not appear to be an acute episode of COPD. Continue oral low-dose prednisone. Supportive care with supplemental oxygen as needed. High risk patient with high risk of worsening respiratory failure. Qualifiers: Chronicity: acute Qualified Code(s): J81.0 - Acute pulmonary edema (2) Acute respiratory failure with hypoxia Current Visit: Yes Status: Acute Assessment and plan: Due to pulmonary edema. Plan as above. Continue supplemental oxygen and wean down FiO2 as tolerated. (3) Hypertensive urgency Current Visit: Yes Status: Acute Assessment and plan: Noted to have poorly controlled hypertension at baseline. Noted to be on multiple antihypertensives, follows up with nephrology. We will resume home meds at this time. (4) IgA nephropathy Current Visit: Yes Status: Chronic Assessment and plan: Follows with nephrology as outpatient. Noted to have acute on chronic renal failure. Baseline serum creatinine around 1.4 and presently does 1.9. She does require IV diuretics, monitor serum creatinine closely. (5) Hypertension Current Visit: Yes Status: Chronic Qualifiers: Hypertension type: essential hypertension Qualified Code(s): I10 - Essential (primary) hypertension - Subjective Interval history: Reports feeling better. Improving shortness of breath, continues to require oxygen. Intermittent dry cough. No fever, chills, nausea, chest pain. Reports having chronic issues with blood pressure control and does follow with diabetes trainer for the same. - Constitutional Vitals: Temp Pulse Resp BP Pulse Ox 98.2 F 83 16 148/89 96 10/14/16 11:06 10/14/16 11:06 10/14/16 15:15 10/14/16 11:17 10/14/16 15:15 General appearance: Present: A&O X 3, obese, answers questions appropriately - Head Head exam: Present: atraumatic, normocephalic - Neck Neck exam general surgery: Present: supple, trachea midline. Absent: lymphadenopathy - Respiratory Respiratory exam: Present: rales (Faint Inspiratory crackles at bilateral bases , intermittent rhonchi). Absent: accessory muscle use, rhonchi, wheezes - Cardiovascular Cardiovascular exam: Present: RRR, +S1, +S2. Absent: diastolic murmur, gallop, rubs, systolic murmur - GI/Abdominal GI/Abdominal exam: Present: normal bowel sounds, soft (Obese), no peritoneal signs. Absent: distended, tenderness - Extremities Exam Extremities exam: Present: warm, radial pulses palpable and symetrical. Absent : calf tenderness, cyanotic, pedal edema - Neurological Exam Neurological exam: Present: CN II-XII intact, oriented X3, no focal deficits. Absent: pronater drift, facial droop, speech deficit - Skin Skin exam: Present: dry, intact Internal Medicine: Result - Labs CBC & Chem 7: 10/14/16 03:38 10/14/16 03:38 Labs: Short CBC 10/14/16 Range/Units 03:38 WBC 11.4 H (4.3-11.1) K/mcL Hgb 10.2 L (11.5-15.4) g/dL Hct 31.1 L (35.3-44.9) % Plt Count 321 (140-400) K/mcL BMP 10/14/16 03:38 Sodium 137 Potassium 4.6 H Chloride 101 Carbon Dioxide 23 BUN 47 H Creatinine 1.91 H Glucose 163 H Calcium 8.7 Cardiac Enzymes 10/13/16 10/14/16 10/14/16 Range/Units 21:29 03:38 09:52 Troponin I 0.01 0.01 0.01 (0-0.03) ng/mL Urine 10/14/16 Range/Units 03:08 Urine Color Yellow (Yellow) Urine Clarity Clear (Clear) Urine pH 6.0 (5.0-8.0) pH Units Ur Specific Kincaid 1.009 L (1.010-1.025) Urine Protein >=300 H (Neg-Trace) mg/dL Urine Glucose (UA) Normal (Normal) mg/dL - ABG Interpretation ABG results: PT/INR, D-dimer PT 12.1 Seconds (9.4-12.1) 10/13/16 21:29 Consult Discharge Plan - Plan Referrals: NO,PCP [Primary Care Provider] -
[2016-10-15] MEDS: Ipratropium/Albuterol Neb 3 ML IH SCH ×4 (04:53→22:39)
[2016-10-15 05:55] LABS: Basophils % 0.1 %; Hematocrit 28.9 % (35.3-44.9); Hemoglobin 9.7 g/dL (11.5-15.4); Immature Granulocytes % 1.8 % (0-4); Lymphocytes % 9.1 %; Mean Corpuscular HGB Conc 33.6 g/dL (31.6-35.5); Mean Corpuscular Hemoglobin 27.9 pg (28.0-33.3); Mean Platelet Volume 9.3 fL (9.4-12.4); Monocytes # 0.8 K/mcL (0.0-1.3); Monocytes % 7.4 %; Platelet Count 300 K/mcL (140-400); Red Blood Count 3.48 M/mcL (3.82-4.97); Red Cell Distribution Width 13.2 % (11.5-14.5); Segmented Neutrophils % 81.6 %
[2016-10-15 06:10] LABS: Calcium 8.4 mg/dL (8.6-10.8); Potassium 4.2 mEq/L (3.5-4.5)
[2016-10-15] MEDS: *HR* Heparin 5,000 UNIT/ML VIAL SQ SCH ×3 (06:20→18:57)
[2016-10-15] MEDS: Lisinopril 20 MG TABLET PO SCH ×2 (08:51→20:33)
[2016-10-15] MEDS: cloNIDine HCl 0.1 MG TABLET PO SCH ×3 (08:51→20:33)
[2016-10-15] MEDS: Furosemide 40 MG/4 ML VIAL IVP SCH (08:53)
[2016-10-15] MEDS ORDERED: predniSONE 20 MG TABLET PO SCH (09:00)
--- NOTE | 2016-10-15 10:02 | Internal Med Progress Note ---
Date of Encounter: 10/15/16 Time of Encounter: 10:01 - Assessment and plan (1) Pulmonary edema Current Visit: Yes Status: Acute Assessment and plan: Likely related to hypertensive urgency from poorly controlled hypertension at baseline with recent acute viral bronchitis. Viral serology positive for RSV, patient on respiratory precautions; Continue fluid restriction and urine output monitoring. 2-D echocardiogram shows preserved EF with mioderate LV diastolic dysfunction; change Lasix to oral form; Continue to taper oral low- dose prednisone. Supportive care with supplemental oxygen as needed. High risk patient with high risk of worsening respiratory failure. Qualifiers: Chronicity: acute Qualified Code(s): J81.0 - Acute pulmonary edema (2) Acute respiratory failure with hypoxia Current Visit: Yes Status: Acute Assessment and plan: Due to pulmonary edema. Plan as above. Continue supplemental oxygen and wean down FiO2 as tolerated. (3) Hypertensive urgency Current Visit: Yes Status: Acute Assessment and plan: Noted to have poorly controlled hypertension at baseline. Noted to be on multiple antihypertensives, follows up with nephrology. We will resume home meds at this time. BP noted to be 170-180s SBP normally; will not bring it down acutely at this time; (4) IgA nephropathy Current Visit: Yes Status: Chronic Assessment and plan: Follows with nephrology as outpatient. Noted to have worsening acute on chronic renal failure. Baseline serum creatinine around 1.4 and presently is 2.1. She does require diuretics, monitor serum creatinine closely. (5) Hypertension Current Visit: Yes Status: Chronic Qualifiers: Hypertension type: essential hypertension Qualified Code(s): I10 - Essential (primary) hypertension - Subjective Interval history: Feels much better today; not requiring O2 at rest; occasional cough; on respiratory precautions for positive RSV serology; no fever, chest pain, leg swelling; - Constitutional Vitals: Temp Pulse Resp BP Pulse Ox 97.7 F 82 16 205/92 97 10/15/16 07:30 10/15/16 07:30 10/15/16 07:30 10/15/16 07:30 10/15/16 07:30 General appearance: Present: A&O X 3, obese, answers questions appropriately - Head Head exam: Present: atraumatic, normocephalic - Neck Neck exam general surgery: Present: supple, trachea midline. Absent: lymphadenopathy - Respiratory Respiratory exam: Present: CTAB. Absent: accessory muscle use, rales, rhonchi, wheezes - Cardiovascular Cardiovascular exam: Present: RRR, +S1, +S2. Absent: diastolic murmur, gallop, rubs, systolic murmur - GI/Abdominal GI/Abdominal exam: Present: normal bowel sounds, soft, no peritoneal signs. Absent: distended, tenderness - Extremities Exam Extremities exam: Present: warm, radial pulses palpable and symetrical. Absent : calf tenderness, cyanotic, pedal edema - Neurological Exam Neurological exam: Present: CN II-XII intact, oriented X3, no focal deficits. Absent: pronater drift, facial droop, speech deficit - Skin Skin exam: Present: dry, intact Internal Medicine: Result - Labs CBC & Chem 7: 10/15/16 05:36 10/15/16 05:36 Labs: Short CBC 10/15/16 Range/Units 05:36 WBC 11.1 (4.3-11.1) K/mcL Hgb 9.7 L (11.5-15.4) g/dL Hct 28.9 L (35.3-44.9) % Plt Count 300 (140-400) K/mcL Neutrophils # 9.0 H (1.6-8.9) K/mcL BMP 10/15/16 05:36 Sodium 138 Potassium 4.2 Chloride 102 Carbon Dioxide 24 BUN 61 H D Creatinine 2.18 H Glucose 155 H Calcium 8.4 L - ABG Interpretation ABG results: PT/INR, D-dimer PT 12.1 Seconds (9.4-12.1) 10/13/16 21:29 Consult Discharge Plan - Plan Referrals: NO,PCP [Primary Care Provider] -
[2016-10-15] MEDS: Furosemide 40 MG TABLET PO SCH (18:33)
[2016-10-15] MEDS ORDERED: Levofloxacin 750 MG/150 ML 750 MG/150 ML BAG IVPB SCH (23:00)
[2016-10-16] MEDS: Ipratropium/Albuterol Neb 3 ML IH SCH ×2 (03:52→10:41)
[2016-10-16 06:40] LABS: Calcium 8.7 mg/dL (8.6-10.8); Potassium 4.1 mEq/L (3.5-4.5)
[2016-10-16] MEDS: *HR* Heparin 5,000 UNIT/ML VIAL SQ SCH (06:47)
[2016-10-16] MEDS: Lisinopril 20 MG TABLET PO SCH (08:51)
[2016-10-16] MEDS: Furosemide 40 MG TABLET PO SCH (08:51)
[2016-10-16] MEDS: cloNIDine HCl 0.1 MG TABLET PO SCH (08:51)
[2016-10-16] MEDS ORDERED: predniSONE 20 MG TABLET PO SCH (09:00)
[2016-10-16 11:07] VITALS: BP 194/80
--- NOTE | 2016-10-16 11:59 | Discharge Summary ---
Date of Encounter: 10/16/16 Time of Encounter: 11:56 - Discharge Diagnosis (1) Pulmonary edema Priority: Primary Status: Resolved Qualifiers: Chronicity: acute Qualified Code(s): J81.0 - Acute pulmonary edema (2) Acute respiratory failure with hypoxia Priority: Primary Status: Resolved (3) Hypertensive urgency Priority: Primary Status: Acute (4) IgA nephropathy Priority: Secondary Status: Chronic (5) Hypertension Priority: Secondary Status: Chronic Qualifiers: Hypertension type: essential hypertension Qualified Code(s): I10 - Essential (primary) hypertension (6) Acute diastolic (congestive) heart failure Priority: Primary Status: Acute - Discharge Medications Prescriptions: PredniSONE 30 mg PO DAILY 6 Days Home Medications: Cholecalciferol (Vitamin D3) [Vitamin D3] 2,000 unit PO DAILY 04/29/15 [History] Furosemide [Lasix] 40 mg PO BID 04/29/15 [History] Labetalol HCl [Trandate] 300 mg PO BID 04/29/15 [History] Losartan Potassium [Cozaar] 50 mg PO BID 04/29/15 [History] Potassium Chloride [Klor-Con 10] 10 meq PO DAILY 04/29/15 [History] CloNIDine HCl [Clonidine HCl] 0.3 mg PO TID 10/13/16 [History] Fish Oil/Dha/Epa [Fish Oil 1,200 mg Fish Oil] 1 each PO DAILY 10/13/16 [History] Lisinopril [Zestril] 20 mg PO BID 10/14/16 [History] PredniSONE 30 mg PO DAILY 6 Days 10/16/16 [Rx] Allergies/Adverse Reactions: Allergies amlodipine Allergy (Verified 10/13/16 18:38) Nausea Hydralazine Allergy (Verified 10/13/16 18:38) Nausea Date of admission: 10/14/16 16:02 Primary care physician: PCP NO Discharging clinician: Gris Jacobs Anticipated date of discharge: 10/16/16 - Patient Status Disposition: Home, Self-Care Condition: Good Functional capacity at discharge: independent ambulation Overall status at discharge: patient is back to baseline - Discharge Instructions Instructions: Heart Failure (DC), Chronic Hypertension (DC) Follow Up With: Dr. Trung Santana [Other] (Web appointment requested. Office will call you with an appointment next wekk.) Selvin Layton DO [Non-Partnered Physician] - (Pt has existing appointment scheduled this upcoming month with Dr. Layton.) Additional Instructions: F/up with PCP in 2 weeks F/up with Nephrology as scheduled - Diet and Activity Activity: resume usual activities as tolerated Diet: low fat, low cholesterol, low salt diet Hospital course: Ms. Barnes is a 61 year old female with history of poorly controlled hypertension and chronic kidney disease was admitted with worsening shortness of breath. She completed 2 courses of steroids and antibiotics as an outpatient for possible acute bronchitis and upper respiratory infection. Chest x-ray showed no evidence of pneumonia. She is a nonsmoker and has no diagnosis of COPD but does have a remote history of childhood asthma. Chest x- ray showed possible pulmonary edema and she was started on IV diuretics along with fluid restriction and supplemental oxygen. Her respiratory status gradually improved on this regimen. 2-D echocardiogram was done which showed moderate left ventricular diastolic dysfunction and preserved ejection fraction. She is noted to have uncontrolled hypertension at baseline and her systolic pressure is usually 182-190s and diastolic in 110s. She was continued on her home medications and recommended to follow up as outpatient with nephrology for the same. Patient's serum creatinine slightly worsened due to the use of IV Lasix and is currently stable at around 1.9-2. Her respiratory status significantly improved and she is no longer requiring supplemental oxygen. Respiratory viral serology was positive for RSV, her antibiotics were discontinued. She is currently medically stable for discharge on oral steroid taper and when necessary albuterol. - Time Spent with Patient Total time spent providing and/or coordinating discharge services: Greater than 30 minutes (45 min) - Constitutional Vitals: Temp Pulse Resp BP Pulse Ox 97.9 F 69 14 194/80 94 L 10/16/16 11:04 10/16/16 11:04 10/16/16 11:04 10/16/16 11:04 10/16/16 11:04 General appearance: Present: A&O X 3, obese, answers questions appropriately - Respiratory Respiratory exam: Present: CTAB (bibasal coarse breath sounds). Absent: accessory muscle use, rales, rhonchi, wheezes - Cardiovascular Cardiovascular exam: Present: RRR, +S1, +S2. Absent: diastolic murmur, gallop, rubs, systolic murmur
== END 2016-10-16 12:56 | disposition home or self-care (01) | DRG 304 ==
LOC: EMEROO 14:16 → 2ANU 14:16 → SUATTDRO 19:05 → 2ANU 20:57
PROVIDERS: ADMIT Internal Medicine; ATTEND Internal Medicine

== ENCOUNTER 2016-10-23 02:57 | Inpatient (IN) ==
[2016-10-23] MEDS ORDERED: Naloxone 0.4 MG/ML INJ IVP PRN ×2 (07:53→10:34)
[2016-10-23] MEDS ORDERED: Acetaminophen 325 MG TABLET PO PRN (07:53)
[2016-10-23] MEDS ORDERED: Ondansetron 4 MG/2 ML VIAL IVP PRN ×2 (07:53→10:34)
[2016-10-23] MEDS ORDERED: *HR* HYDROcodone/Acet 5/325 mg TABLET PO PRN ×2 (07:53→10:34)
[2016-10-23] MEDS ORDERED: *HR* Morphine 2 MG/ML SYRINGE IVP PRN ×2 (07:53→10:34)
[2016-10-23] MEDS ORDERED: Nitroglycerin 25 MG/250 ML INFUS..BTL IVC SCH (08:00)
[2016-10-23] MEDS ORDERED: Furosemide 40 MG/4 ML VIAL IVP ONE (08:30)
[2016-10-23] MEDS ORDERED: Furosemide 40 MG TABLET PO SCH (09:00)
[2016-10-23] MEDS ORDERED: Cholecalciferol (D-3) 1,000 UNIT TABLET PO SCH (09:00)
[2016-10-23] MEDS ORDERED: cloNIDine HCl 0.1 MG TABLET PO SCH (09:00)
[2016-10-23 09:15] LABS: Albumin 2.9 g/dL (3.5-5.0); Albumin/Globulin Ratio 0.8 (1.1-2.2); Bilirubin,Total 0.9 mg/dL (0.2-1.2); Calcium 9.6 mg/dL (8.6-10.8); Globulin 3.6 g/dL (2.4-3.5); Potassium 3.8 mEq/L (3.5-4.5); Total Protein 6.5 g/dL (6.0-8.3)
[2016-10-23] MEDS ORDERED: niCARdipine 20 MG/200 ML MLS IVC SCH (09:45)
[2016-10-23] MEDS: niCARdipine 40 MG/200 ML MLS IVC SCH ×2 (11:05→19:07)
[2016-10-23] MEDS: cloNIDine HCl 0.1 MG TABLET PO SCH ×2 (15:01→19:54)
--- NOTE | 2016-10-23 15:44 | Cardiology Consult Note ---
Date of Encounter: 10/23/16 Time of Encounter: 13:39 Assessment and Plan (1) Elevated troponin Current Visit: Yes Status: Acute Troponin elevated 0.18, 0.10. Demand ischemia in the setting of hypertensive urgency. B/p up tp 250 systolic. TTE 10/16/16 showed normal LV function. B/p being managed by Dr. Rutledge. No further cardiac testing indicated at this time. Aggressive risk factor modification. (2) Hypertensive urgency Current Visit: No Status: Acute On multiple blood pressure medications. IV cardene currently ordered. B/p improved. Followed by hypertension specialist. Consider renal US if not done. (3) Diastolic dysfunction Current Visit: Yes Status: Acute Pt given IV lasix at [facility] this morning. Currently euvolemic on exam Moderate diastolic dysfunction on TTE. Recent hospital stay with pulmonary edema. Agressive b/p control. CHF discussed with pt. Low sodium diet. F/u with [facility] in 1-2 weeks. Discussion w patient/family: The assessment and plan as outlined above was discussed with the patient and/or family members who expressed understanding and agreement. All questions were answered. Thank you for involving us in the care of your patient. Please call with any questions. History of Present Illness Consult date: 10/23/16 Requesting physician: Jamie Elliott Consult reason: Elevated troponin Chief complaint: Altered mental status History of present illness: Ms. Barnes is a 61 year old female with a history of chronic kidney disease, hypertension, and obesity who presented from home when her was unable to wake her from her nap. EMS was called and her blood pressures found to be in the 250 systolic. She did wake once EMS arrived and walked to her bathroom. She was confused after waking for a short period of time. She denied SOB or chest pain. Cardiology consulted for elevated troponin. Recent admission one week ago for bronchitis, elevated troponin, and diastolic heart failure. She follows with Dr. Rutledge for her hypertension and CKD. TTE 10/14/16- EF 60%, moderate diastolic dysfunction, mildly dilated left atrium , mild MR. Unable to estimate RSVP. Past Med Surg Social Fam HX - Past Medical History Medical history: CHF, hypertension, renal disease Psychiatric history: no psych history, other - Past Surgical History Surgical History: , cholecystectomy, hysterectomy, orthopedic, other - Social History Smoking Status: Never smoker Smokeless Tobacco Status: No Alcohol use: none Drug use: none - Family History Mother Name: Mitch Family Member Ethnicity: Non- Living Status: Age at : 76 Cause of : fell and punctured lungs Hx Family Cardiac Disorders: Yes Hx Family Respiratory Disorders: No Hx Family GI Disorders: No Hx Family Endocrine Disorder: Yes (diabetes) Hx Family Neuromuscular Disorders: No Hx Family Neurologic Disorders: No Hx Family HEENT Disorders: No Hx Family Autoimmune Disorders: No Father Name: marlen Espinoza Age: 84 Living Status: Still Living Hx Family Cardiac Disorders: Yes Hx Family Respiratory Disorders: Yes Medications and Allergies Cholecalciferol (Vitamin D3) [Vitamin D3] 2,000 unit PO DAILY 04/29/15 [History] Furosemide [Lasix] 40 mg PO BID 04/29/15 [History] Labetalol HCl [Trandate] 300 mg PO BID 04/29/15 [History] Losartan Potassium [Cozaar] 50 mg PO BID 04/29/15 [History] Potassium Chloride [Klor-Con 10] 10 meq PO DAILY 04/29/15 [History] CloNIDine HCl [Clonidine HCl] 0.3 mg PO TID 10/13/16 [History] Fish Oil/Dha/Epa [Fish Oil 1,200 mg Fish Oil] 1 each PO DAILY 10/13/16 [History] Lisinopril [Zestril] 20 mg PO BID 10/14/16 [History] PredniSONE 30 mg PO DAILY 6 Days 10/16/16 [Rx] Albuterol Sulfate [Albuterol Inhaler] 1 - 2 puff IH Q4-6H PRN 10/23/16 [History] Ramipril [Ramipril] 10 mg PO BID 10/23/16 [History] Allergies amlodipine Allergy (Verified 10/13/16 18:38) Nausea Hydralazine Allergy (Verified 10/13/16 18:38) Nausea All Systems Review: A 10-system review of systems was performed and is negative for pertinent findings except as documented above in the HPI. Physical Examination Vital Signs, Last 4 Hours Pulse Resp BP Pulse Ox 10/23/16 14:00 77 18 160/75 94 L General: Conversant, No Apparent Distress HEENT: Atraumatic, Normocephaly, Mucus Membranes Moist Neck: No JVD, Normal carotid pulses Cardiac: Reg Rate and Rhythm, Normal S1 and S2, No Murmur Lungs: Normal Breath Sounds, No Wheeze, Rales, Rhonchi Neuro: Alert and responsive, No focal deficits noted Abdomen: Soft, Non-Tender Skin: No rashes noted on visualized skin Musculoskeletal: No Chest Wall Tenderness Extremities: No Clubbing, No Cyanosis, No Edema, Normal Pulses Results 10/23/16 08:25 Lab Results 10/23/16 10/23/16 10/23/16 08:25 08:25 14:20 Sodium 138 Potassium 3.8 Chloride 99 Carbon Dioxide 25 BUN 36 H Creatinine 1.74 H Glucose 118 H Calcium 9.6 Total Bilirubin 0.9 AST 15 ALT 21 Alkaline Phosphatase 101 Troponin I 0.18 H* 0.10 H* - Imaging and Cardiology Echo: report reviewed - EKG Interpretation EKG results cardiology: personally reviewed (Sr with no ST changes.) Consult Discharge Plan - Plan Referrals: Trung Bernabe DO [Primary Care Provider] -
--- NOTE | 2016-10-23 16:44 | Internal Med History&Physical ---
<Jaren Rodriguez - Last Filed: 10/23/16 16:39> Date of Encounter: 10/23/16 Time of Encounter: 08:15 Internal Medicine - H&P: HPI Chief complaint: High blood pressure Admitted From: Emergency Dept Plans for Post Hospital Care: Home History of present illness: Ms. Barnes is a 61 year old female Past Med Surg Social Fam HX - Past Medical History Medical history: CHF, hypertension, renal disease Psychiatric history: no psych history, other - Past Surgical History Surgical History: , cholecystectomy, hysterectomy, orthopedic, other - Social History Smoking Status: Never smoker Smokeless Tobacco Status: No Alcohol use: none Drug use: none - Family History Mother Name: Mitch Family Member Ethnicity: Non- Living Status: Age at : 76 Cause of : fell and punctured lungs Hx Family Cardiac Disorders: Yes Hx Family Respiratory Disorders: No Hx Family GI Disorders: No Hx Family Endocrine Disorder: Yes (diabetes) Hx Family Neuromuscular Disorders: No Hx Family Neurologic Disorders: No Hx Family HEENT Disorders: No Hx Family Autoimmune Disorders: No Father Name: marlen Espinoza Age: 84 Living Status: Still Living Hx Family Cardiac Disorders: Yes Hx Family Respiratory Disorders: Yes Internal Medicine - H&P: Meds Cholecalciferol (Vitamin D3) [Vitamin D3] 2,000 unit PO DAILY 04/29/15 [History] Furosemide [Lasix] 40 mg PO BID 04/29/15 [History] Labetalol HCl [Trandate] 300 mg PO BID 04/29/15 [History] Losartan Potassium [Cozaar] 50 mg PO BID 04/29/15 [History] Potassium Chloride [Klor-Con 10] 10 meq PO DAILY 04/29/15 [History] CloNIDine HCl [Clonidine HCl] 0.3 mg PO TID 10/13/16 [History] Fish Oil/Dha/Epa [Fish Oil 1,200 mg Fish Oil] 1 each PO DAILY 10/13/16 [History] Lisinopril [Zestril] 20 mg PO BID 10/14/16 [History] PredniSONE 30 mg PO DAILY 6 Days 10/16/16 [Rx] Albuterol Sulfate [Albuterol Inhaler] 1 - 2 puff IH Q4-6H PRN 10/23/16 [History] Ramipril [Ramipril] 10 mg PO BID 10/23/16 [History] Allergies amlodipine Allergy (Verified 10/13/16 18:38) Nausea Hydralazine Allergy (Verified 10/13/16 18:38) Nausea All Systems PM: A 10-system review of systems was performed and is negative for pertinent findings except as documented above in the HPI. - Constitutional Vitals: Temp Pulse Resp BP Pulse Ox 98.5 F 73 18 165/83 93 L 10/23/16 15:44 10/23/16 15:44 10/23/16 15:44 10/23/16 15:44 10/23/16 15:44 Internal Med - H&P Results - Labs CBC & Chem 7: 10/23/16 08:25 Labs: BMP 10/23/16 08:25 Sodium 138 Potassium 3.8 Chloride 99 Carbon Dioxide 25 BUN 36 H Creatinine 1.74 H Glucose 118 H Calcium 9.6 Cardiac Enzymes 10/23/16 10/23/16 Range/Units 08:25 14:20 Troponin I 0.18 H* 0.10 H* (0-0.03) ng/mL Liver Function 10/23/16 Range/Units 08:25 Total Bilirubin 0.9 (0.2-1.2) mg/dL AST 15 (5-34) Units/L ALT 21 (0-55) Units/L Alkaline Phosphatase 101 (38-126) Units/L Albumin 2.9 L (3.5-5.0) g/dL <Narda Mccarthy - Last Filed: 10/23/16 20:00> Date of Encounter: 10/23/16 Time of Encounter: 07:00 Assessment and Plan (1) Hypertensive urgency Current visit: No Status: Acute BP 237/100 at initial presentation to [facility] Patient given Labetalol 20mg IV in [facility] ED, transferred to [place] Upon arrival to [place], BP 225/99 Recommend transfer of patient to , start Cardene drip titrate systolic BP 170- 180 (2) Acute diastolic (congestive) heart failure Current visit: No Status: Chronic BNP 1946.8 at [facility], compared to BNP 251 at [place] 10/14/16 ECHO 10/14/16 with EF 60%, moderate LV diastolic dysfunction -normal RV size and function -mildly dilated L atrium -mild mitral regurg Continue to monitor (3) Chronic kidney disease (CKD) Current visit: Yes Status: Acute CR 1.74, eGFR 30 Cr 2.1 upon discharge from hospital 10/16/16 for CHF, bronchitis, RSV Kidney function improving following acute injury during hospitalization Continue to monitor Qualifiers: Chronic kidney disease stage: stage 3 (moderate) Qualified Code(s): N18.3 - Chronic kidney disease, stage 3 (moderate) Internal Medicine - H&P: HPI Admitted From: Emergency Dept Plans for Post Hospital Care: Home History of present illness: Ms. Barnes is a 61 year old female who comes to the hospital this morning by transport from [facility] due to hypertensive emergency. Patient states that the problem began last night after she took a nap on her couch at around 9pm. Patient's tried to wake her to go to bed, but was unable to arouse her, despite shaking her. He noticed that the patient's skin was white and she was snoring loudly in an abnormal manner. Patient's daughter, Melissa, who is a nurse arrived at the house and found her mother to be balderas in color. Nurse was unable to arouse the patient. EMS was called. While EMS was en route , patient became awake, opened eyes, was calm, and began talking slowly. EMS arrived. Patient states that the first thing she remembers from this episode is the arrival of the medic. Patient was then taken to [facility] for further evaluation. Upon arrival, patient was found to have BP 237/100, HR 76, RR 19, O2 97% RA, Temp 97.5F. She was given Lasix 40mgIV and Labetalol 20mg IV. Patient states that her blood pressure "always runs high". Normal BP are 180s/ 90s. She sees Dr. Rutledge for management of glomerularnephritis and hypertension. Patient recently discharge from [place] 10/16/16. Diagnoses during hospital stay: pulmonary edema, acute respiratory failure with hypoxia, hypertensive urgency , Iga nephropathy, HTN, Acute diastolic congestive heart failure. Patient discharged on Prednisone 30mg po x 6 days. Admits to awaking with a heaviness or weakness in all extremities. Patient states that this is the first time she has had such an episode. She admits to an episode of sleep-walking last week during hospitalization (admit 10/14/16). This is the first time she has been found sleep-walking. Denies history of seizure, night terrors, MESSI. Past Med Surg Social Fam HX - Past Medical History Medical history: CHF, hypertension, renal disease - Past Surgical History Surgical History: , cholecystectomy, hysterectomy, orthopedic, other - Social History Smoking Status: Former smoker (smoked 1ppd x 2years as teenage) Smokeless Tobacco Status: No Alcohol use: none Drug use: none Occupational status: employed Current living situation: Home, With Family Activity Level: Independent ambulation All Systems PM: A 10-system review of systems was performed and is negative for pertinent findings except as documented above in the HPI. - Constitutional Constitutional: weakness (bilateral upper and lower extremities) - Constitutional Vitals: Temp Pulse Resp BP Pulse Ox 98.5 F 73 18 165/83 93 L 10/23/16 15:44 10/23/16 15:44 10/23/16 15:44 10/23/16 15:44 10/23/16 15:44 General appearance: Present: A&O X 3, no acute distress, obese, answers questions appropriately - Head Head exam: Present: atraumatic, normal inspection, normocephalic - Eye Eye exam: Present: PERRL Pupils: Present: normal accommodation - Neck Neck exam general surgery: Present: full ROM - Respiratory Respiratory exam: Present: CTAB. Absent: rales, rhonchi, wheezes - Cardiovascular Cardiovascular exam: Present: RRR, +S1, +S2 - Extremities Exam Extremities exam: Present: normal inspection, warm. Absent: pedal edema, tenderness - Neurological Exam Neurological exam: Present: CN II-XII intact, oriented X3, strengths equal and symetr throughout. Absent: facial droop, speech deficit - Psychiatric Psychiatric exam: Present: normal affect, normal mood - Skin Skin exam: Present: warm Internal Med - H&P Results - Labs CBC & Chem 7: 10/23/16 08:25 Labs: Labs from [facility] 10/22/16: WBC 13.2 hemoglobin 12.3 Hematocrit 36.3 Platelets 286 Neutrophils 79% Sodium 137 potassium 4.4 Chloride 98 CO2 31 BUN 43 creatinine 1.93 glucose 126 Calcium 8.9 D-dimer 2389 BNP 1946.8 Troponin not resulted UA: Protein 300 Large hemoglobin 20-50 RBCs Few bacteria 1+ mucus - EKG Data EKG shows normal: sinus rhythm Rate: normal - Impressions LVH - Attending Attestation I examined this patient and my medical decision-making was reviewed with the PROJECT SCIENTIST/PA/Advanced Practice Nurse/Resident Physician. I agree with the documented findings, disposition and treatment plan as described except to the extent set forth below. <Jamie Elliott - Last Filed: 10/24/16 09:16> Date of Encounter: 10/24/16 Internal Medicine - H&P: HPI History of present illness: Ms. Barnes is a 61 year old female All Systems PM: A 10-system review of systems was performed and is negative for pertinent findings except as documented above in the HPI. - Constitutional Vitals: Temp Pulse Resp BP Pulse Ox 98.3 F 78 18 174/87 94 L 10/24/16 07:42 10/24/16 07:42 10/24/16 07:42 10/24/16 07:42 10/24/16 07:42 Internal Med - H&P Results - Labs CBC & Chem 7: 10/24/16 04:56 10/24/16 04:56 Labs: Short CBC 10/24/16 Range/Units 04:56 WBC 11.2 H (4.3-11.1) K/mcL Hgb 10.7 L (11.5-15.4) g/dL Hct 33.4 L (35.3-44.9) % Plt Count 236 (140-400) K/mcL Neutrophils # 7.0 (1.6-8.9) K/mcL BMP 10/23/16 10/24/16 08:25 04:56 Sodium 138 140 Potassium 3.8 3.9 Chloride 99 102 Carbon Dioxide 25 26 BUN 36 H 39 H Creatinine 1.74 H 2.20 H Glucose 118 H 118 H Calcium 9.6 8.8 Cardiac Enzymes 10/23/16 10/23/16 Range/Units 14:20 20:08 Troponin I 0.10 H* 0.07 H* (0-0.03) ng/mL Liver Function 10/23/16 Range/Units 08:25 Total Bilirubin 0.9 (0.2-1.2) mg/dL AST 15 (5-34) Units/L ALT 21 (0-55) Units/L Alkaline Phosphatase 101 (38-126) Units/L Albumin 2.9 L (3.5-5.0) g/dL - Attending Attestation We will treat the patient with IV Lasix for diastolic heart failure. Start her oral medication, clonidine and labetalol. I have checked troponin which was elevated, reviewed her medical record on prior admissions one week ago troponin was negative. I have discussed the case with cardiology. Likely troponin leak secondary to hypertensive emergency. We will place the patient on Cardene drip to control her blood pressure. Goal S lowered blood pressure by 25%. She is at high risk for morbidity and mortality and complications due to hypertensive emergency requiring IV medication infusions that warrant frequent heart rate and blood pressure monitoring.
[2016-10-23] MEDS: Furosemide 40 MG TABLET PO SCH (19:54)
[2016-10-24 06:10] LABS: Basophils % 0.4 %; Eosinophils # 0.6 K/mcL (0.0-0.6); Eosinophils % 4.9 %; Hematocrit 33.4 % (35.3-44.9); Hemoglobin 10.7 g/dL (11.5-15.4); Immature Granulocytes % 2.9 % (0-4); Lymphocytes # 2.3 K/mcL (0.6-4.6); Lymphocytes % 20.2 %; Mean Corpuscular Hemoglobin 27.4 pg (28.0-33.3); Mean Corpuscular Volume 85.4 fL (83.0-100.0); Mean Platelet Volume 9.7 fL (9.4-12.4); Monocytes % 8.9 %; Platelet Count 236 K/mcL (140-400); Red Blood Count 3.91 M/mcL (3.82-4.97); Red Cell Distribution Width 13.8 % (11.5-14.5); Segmented Neutrophils % 62.7 %
[2016-10-24 06:15] LABS: Calcium 8.8 mg/dL (8.6-10.8); Chol/HDL Ratio 6.8 (0-4.9); Magnesium 2.1 mg/dL (1.6-2.6); Phosphorous 5.4 mg/dL (2.3-4.7); Potassium 3.9 mEq/L (3.5-4.5)
[2016-10-24] MEDS ORDERED: *HR* Enoxaparin 40 MG/0.4 ML SYRINGE SQ SCH ×2 (07:00)
[2016-10-24] MEDS: niCARdipine 40 MG/200 ML MLS IVC SCH ×2 (07:27→12:07)
[2016-10-24] MEDS: cloNIDine HCl 0.1 MG TABLET PO SCH ×3 (07:37→20:18)
[2016-10-24] MEDS: FISH OIL 1200MG PO SCH (07:38)
[2016-10-24] MEDS: Furosemide 40 MG TABLET PO SCH ×2 (07:38→20:18)
[2016-10-24] MEDS: Cholecalciferol (D-3) 1,000 UNIT TABLET PO SCH (07:38)
--- NOTE | 2016-10-24 08:27 | Nephrology Consult Note ---
Date of Encounter: 10/24/16 Time of Encounter: 08:25 Assessment and Plan (1) Acute kidney injury superimposed on CKD Current Visit: No Status: Acute Patient has acute kidney injury superimposed on stage III chronic kidney disease related to IgA nephropathy. This may be related to relative hypotension. I would expect that her renal function hopefully will improve as her kidneys become more accustomed to lower blood pressure. I think she needs an additional workup for other causes of her hypertension. I think she also needs to be evaluated for possible sleep apnea. I would continue with the current medication since her blood pressure appears to be relatively well controlled. I would leave her off the DIEUDONNE inhibitor and angiotensin receptor sai until her renal function starts to improve. (2) IgA nephropathy determined by biopsy of kidney Current Visit: Yes Status: Acute (3) Hypertensive urgency Current Visit: No Status: Acute History of Present Illness - History of Present Illness This is a 61-year-old female who is followed as an outpatient for CK D stage III hypertension and IgA nephropathy. Patient was admitted after being noted to be difficult to arouse at home and also because of hypertensive urgency. Patient was in the hospital week ago with acute bronchitis congestive heart failure and elevated blood pressure. Patient was admitted at this time. She is going be started on a Cardene drip but apparently her blood pressure improves with the Cardene drip never had to be initiated. Currently her blood pressure is 157/69 and she is on less medication now that she was as an outpatient. She says she feels well. She denies any shortness of breath and lower extremity swelling orthopnea chest pain or coughing. Her renal function however has worsened. Past Med Surg Social Fam HX - Past Medical History Medical history: CHF, hypertension, renal disease Psychiatric history: no psych history, other - Past Surgical History Surgical History: , cholecystectomy, hysterectomy, orthopedic, other - Social History Smoking Status: Former smoker (smoked 1ppd x 2years as teenage) Smokeless Tobacco Status: No Alcohol use: none Drug use: none - Family History Mother Name: Mitch Family Member Ethnicity: Non- Living Status: Age at : 76 Cause of : fell and punctured lungs Hx Family Cardiac Disorders: Yes Hx Family Respiratory Disorders: No Hx Family GI Disorders: No Hx Family Endocrine Disorder: Yes (diabetes) Hx Family Neuromuscular Disorders: No Hx Family Neurologic Disorders: No Hx Family HEENT Disorders: No Hx Family Autoimmune Disorders: No Father Name: marlen Espinoza Age: 84 Living Status: Still Living Hx Family Cardiac Disorders: Yes Hx Family Respiratory Disorders: Yes Medications and Allergies Cholecalciferol (Vitamin D3) [Vitamin D3] 2,000 unit PO DAILY 04/29/15 [History] Furosemide [Lasix] 40 mg PO BID 04/29/15 [History] Labetalol HCl [Trandate] 300 mg PO BID 04/29/15 [History] Losartan Potassium [Cozaar] 50 mg PO BID 04/29/15 [History] Potassium Chloride [Klor-Con 10] 10 meq PO DAILY 04/29/15 [History] CloNIDine HCl [Clonidine HCl] 0.3 mg PO TID 10/13/16 [History] Fish Oil/Dha/Epa [Fish Oil 1,200 mg Fish Oil] 1 each PO DAILY 10/13/16 [History] Lisinopril [Zestril] 20 mg PO BID 10/14/16 [History] PredniSONE 30 mg PO DAILY 6 Days 10/16/16 [Rx] Albuterol Sulfate [Albuterol Inhaler] 1 - 2 puff IH Q4-6H PRN 10/23/16 [History] Ramipril [Ramipril] 10 mg PO BID 10/23/16 [History] Allergies amlodipine Allergy (Verified 10/13/16 18:38) Nausea Hydralazine Allergy (Verified 10/13/16 18:38) Nausea Review of Systems Constitutional: as per HPI Eyes: bilateral: blurred vision (patient denies), diplopia (patient denies) Nose, mouth and throat: no dizziness, no headache(s) Cardiovascular: no chest pain, no palpitations Respiratory: no cough, no dyspnea Gastrointestinal: no abdominal pain, no change in bowel habits Genitourinary Female: as per HPI Musculoskeletal: no muscle weakness, no numbness Integumentary: no hirsutism, no striae Neurological: as per HPI Psychiatric: no depression, no difficulty concentrating Endocrine: as per HPI Hematologic/Lymphatic: no easy bruising, no lymphadenopathy Exam - Vital Signs Vital signs: Initial Vital Signs Temp Pulse Resp BP Pulse Ox 97.8 F 72 15 225/99 97 10/23/16 04:53 10/23/16 04:53 10/23/16 04:53 10/23/16 04:53 10/23/16 04:53 Vital Signs - Last 8 Hours Temp Pulse Resp BP Pulse Ox 10/24/16 07:42 98.3 F 78 18 174/87 94 L 10/24/16 04:39 97.9 F 61 17 155/69 92 L Intake and Output 10/23/16 10/24/16 10/24/16 23:59 07:59 15:59 Intake Total 240 / 240 300 / 300 Output Total 450 / 450 525 / 525 Balance -210 / -210 -225 / -225 Intake: Oral 240 / 240 300 / 300 Output: Urine 450 / 450 525 / 525 Other: Meal Dinner Percent of Meal Consumed 90% Weight 109.2 kg Patient Weight 10/24/16 23:59 Weight 109.2 kg - General Appearance Exam: The patient is alert and oriented. She is in no acute distress. Blood pressure 157/69. Supple. Carotids are bruits. Lungs occasional wheeze otherwise clear. No rhonchi or rales. Heart regular rate and rhythm. Abdomen shows normal bowel sounds are bruits masses organomegaly or tenderness. Lower extremities show no peripheral edema. Results - Lab Results 10/24/16 04:56 10/24/16 04:56 Most recent lab results Calcium 8.8 mg/dL (8.6-10.8) 10/24/16 04:56 Phosphorus 5.4 mg/dL (2.3-4.7) H 10/24/16 04:56 Magnesium 2.1 mg/dL (1.6-2.6) 10/24/16 04:56 Consult Discharge Plan - Plan Referrals: Trung Bernabe DO [Primary Care Provider] -
--- NOTE | 2016-10-24 11:52 | Internal Med Progress Note ---
Date of Encounter: 10/24/16 Time of Encounter: 11:25 - Assessment and plan (1) Elevated troponin Current Visit: Yes Status: Acute Assessment and plan: Based on the cardiology recommendation this is most likely a demand ischemia. As an outpatient, may need stress test as an outpatient (2) IgA nephropathy determined by biopsy of kidney Current Visit: Yes Status: Acute Assessment and plan: Continue treatment by Nephrology team appreciate nephrology input (3) Acute kidney injury superimposed on CKD Current Visit: No Status: Acute (4) Unresponsiveness Current Visit: Yes Status: Acute Assessment and plan: This patient had episode of unresponsiveness. Unable to be aroused by family members. No recollection only faint before EMS arrived , cannot rule out seizure disorder discussed with neurology team and they recommended to order MRI , B12, TSH consider 24 hour EEG as an outpatient, neurology on board for further evaluation. Possible sleep apnea we will check a nocturnal pulse ox need sleep study as an outpatient (5) Anxiety disorder Current Visit: Yes Status: Acute Assessment and plan: With her persistent episode of hypertension with history of anxiety disorders would consider adding SSRI discussed with patient about family member will try to use a see medication used by her sister was commonly gene response for certain medication Qualifiers: Anxiety disorder type: unspecified anxiety disorder Qualified Code(s): F41.9 - Anxiety disorder, unspecified (6) Dyslipidemia Current Visit: Yes Status: Acute Assessment and plan: Statin therapy (7) Hyperuricemia Current Visit: Yes Status: Acute Assessment and plan: Nephrology team to adjust medication - Time Spent With Patient Greater than 35 minutes (Plan discussed with patient and at bedside) - Subjective Interval history: Patient denies any chest pain or shortness of breath. Patient denies any headache. Patient denies any motor or sensory changes. Patient denies any dizziness, patient stated since her hysterectomy, she has been feeling anxious , patient feels this is contributing to her persistent hypertension. Hospital and stated that she is anxious most of the time. No depression - Constitutional Vitals: Temp Pulse Resp BP Pulse Ox 98.3 F 66 18 118/70 94 L 10/24/16 07:42 10/24/16 10:13 10/24/16 07:42 10/24/16 10:13 10/24/16 10:13 General appearance: Present: cooperative, A&O X 3, no acute distress, obese, answers questions appropriately - Head Head exam: Present: atraumatic, normocephalic - Neck Neck exam general surgery: Present: supple, trachea midline. Absent: lymphadenopathy - Respiratory Respiratory exam: Present: CTAB. Absent: accessory muscle use, rales, rhonchi, wheezes - Cardiovascular Cardiovascular exam: Present: RRR, +S1, +S2. Absent: diastolic murmur, gallop, rubs, systolic murmur - GI/Abdominal GI/Abdominal exam: Present: normal bowel sounds, soft, no peritoneal signs. Absent: distended, tenderness - Extremities Exam Extremities exam: Present: warm, radial pulses palpable and symetrical. Absent : calf tenderness, cyanotic, pedal edema - Neurological Exam Neurological exam: Present: oriented X3 (5 out of 5 in all 4 extremities, sensory intact, cranial nerve II-12 grossly intact), no focal deficits. Absent : pronater drift, facial droop, speech deficit - Skin Skin exam: Present: dry, intact Internal Medicine: Result - Labs CBC & Chem 7: 10/24/16 04:56 10/24/16 04:56 Labs: Short CBC 10/24/16 Range/Units 04:56 WBC 11.2 H (4.3-11.1) K/mcL Hgb 10.7 L (11.5-15.4) g/dL Hct 33.4 L (35.3-44.9) % Plt Count 236 (140-400) K/mcL Neutrophils # 7.0 (1.6-8.9) K/mcL BMP 10/24/16 04:56 Sodium 140 Potassium 3.9 Chloride 102 Carbon Dioxide 26 BUN 39 H Creatinine 2.20 H Glucose 118 H Calcium 8.8 Cardiac Enzymes 10/23/16 10/23/16 Range/Units 14:20 20:08 Troponin I 0.10 H* 0.07 H* (0-0.03) ng/mL Consult Discharge Plan - Plan Referrals: Trung Bernabe DO [Primary Care Provider] -
[2016-10-24] MEDS: Thiamine (B-1) 100 MG TABLET PO SCH (15:12)
[2016-10-24] MEDS: Aspirin 81 MG TAB.CHEW PO SCH (15:12)
--- NOTE | 2016-10-24 20:29 | Internal Med Progress Note ---
Date of Encounter: 10/24/16 - Constitutional Vitals: Temp Pulse Resp BP Pulse Ox 98.1 F 72 20 181/79 91 L 10/24/16 19:47 10/24/16 19:47 10/24/16 19:47 10/24/16 19:47 10/24/16 19:47 General appearance: Present: cooperative, A&O X 3, no acute distress, obese, answers questions appropriately Internal Medicine: Result - Labs CBC & Chem 7: 10/24/16 04:56 10/24/16 04:56 Labs: Short CBC 10/24/16 Range/Units 04:56 WBC 11.2 H (4.3-11.1) K/mcL Hgb 10.7 L (11.5-15.4) g/dL Hct 33.4 L (35.3-44.9) % Plt Count 236 (140-400) K/mcL Neutrophils # 7.0 (1.6-8.9) K/mcL BMP 10/24/16 04:56 Sodium 140 Potassium 3.9 Chloride 102 Carbon Dioxide 26 BUN 39 H Creatinine 2.20 H Glucose 118 H Calcium 8.8 Cardiac Enzymes 10/23/16 Range/Units 20:08 Troponin I 0.07 H* (0-0.03) ng/mL Consult Discharge Plan - Plan Referrals: Trung Bernabe DO [Primary Care Provider] -
--- NOTE | 2016-10-25 00:23 | Electrocardiograph Report ---
[facility] Test Date: 2016-10-23 Pat Name: Bridgette Barnes Department: 110 Room: 2N05 Gender: F Elevator Repairer: : 1955 Requested By: Jamie Elliott Order Number: [id number] Reading MD: Quan Mckinley MD Measurements Intervals [place] Rate: 68 P: 27 NM: 173 QRS: -37 QRSD: 92 T: 1 QT: 408 QTc: 426 Interpretive Statements SINUS RHYTHM LEFT VENTRICULAR HYPERTROPHY INFERIOR MYOCARDIAL INFARCTION, OF INDETERMINATE AGE Electronically Signed On 10-25-16 00:21:38 EST by Quan Mckinley MD
[2016-10-25 05:18] LABS: Albumin 2.4 g/dL (3.5-5.0); Albumin/Globulin Ratio 0.8 (1.1-2.2); Bilirubin,Total 0.6 mg/dL (0.2-1.2); Calcium 8.8 mg/dL (8.6-10.8); Globulin 3.1 g/dL (2.4-3.5); Potassium 3.9 mEq/L (3.5-4.5); Total Protein 5.5 g/dL (6.0-8.3)
[2016-10-25 05:54] LABS: Folate 9.3 ng/mL (7.0-31.4)
[2016-10-25] MEDS: niCARdipine 40 MG/200 ML MLS IVC SCH ×3 (06:38→19:37)
[2016-10-25] MEDS: *HR* Enoxaparin 30 MG/0.3 ML SYRINGE SQ SCH (06:40)
[2016-10-25] MEDS: Aspirin 81 MG TAB.CHEW PO SCH (08:34)
[2016-10-25] MEDS: Furosemide 40 MG TABLET PO SCH (08:34)
[2016-10-25] MEDS: Cholecalciferol (D-3) 1,000 UNIT TABLET PO SCH (08:34)
[2016-10-25] MEDS: cloNIDine HCl 0.1 MG TABLET PO SCH ×3 (08:34→19:37)
[2016-10-25] MEDS: FISH OIL 1200MG PO SCH ×2 (08:37→15:36)
--- NOTE | 2016-10-25 10:01 | Event Note ---
Date of Encounter: 10/25/16 Time of Encounter: 10:01 The patient is currently off the floor for testing. Her renal function continues to slowly worsen. Blood pressure appears to be satisfactory. I am going to hold her Lasix and see if her renal function improves. She currently is undergoing a renal ultrasound and renal artery duplex scan.
[2016-10-25] MEDS: Thiamine (B-1) 100 MG TABLET PO SCH (10:26)
--- NOTE | 2016-10-25 11:17 | Neurology - Consult Note ---
Date of Encounter: 10/25/16 Time of Encounter: 08:05 Assessment and Plan (1) Unresponsiveness Current Visit: Yes Status: Acute Patient who apparently had an episode of unresponsiveness without any focal findings on her neurological examination, at the same time no evidence and no witnessed of any seizure activity, patient also did not report any history of postictal state she was back to her baseline and quite quickly without any focal findings. Imaging studies also did not reveal any abnormalities. Certainly at this time less likely that it was a stroke and at the same time less likely was a seizure. Imaging studies were also negative do not think that we need to do any MRI scan at this time. At the same time EEG probably would not be helpful as well. I suspect patient's symptoms could be related to hypertensive encephalopathy as it can cause mental status changes on the other hand is a possibility that it could be related to a sleep apnea as patient does acknowledges that her witnessed that she was snoring a lot when she was not able to be awake. For that I would recommend that we should get a sleep studies that could be done as an outpatient. On the other hand we do need to monitor her blood pressure and keep it stable she does acknowledges that she was started on new medication about a week ago and she has noted some overall changes in her condition since being on that medication perhaps you could discontinue it and tried different medication if needed. Neurologically patient is quite stable could be discharged from neuro standpoint (2) Anxiety disorder Current Visit: Yes Status: Acute Stable at this time but may be contributing to her symptoms Qualifiers: Anxiety disorder type: unspecified anxiety disorder Qualified Code(s): F41.9 - Anxiety disorder, unspecified (3) Chronic kidney disease (CKD) Current Visit: Yes Status: Acute Qualifiers: Chronic kidney disease stage: stage 3 (moderate) History of Present Illness HPI: Ms. Barnes is a 61 year old female admited to the hospital due to hypertensive emergency. Patient states that the problem began last night after she took a nap on her couch at around 9pm. Patient's tried to wake her to go to bed, but was unable to arouse her, despite shaking her. He noticed that the patient's skin was white and she was snoring loudly in an abnormal manner. Patient's daughter, Melissa, who is a nurse arrived at the house and found her mother to be balderas in color. Nurse was unable to arouse the patient. EMS was called. While EMS was en route, patient became awake, opened eyes, was calm, and began talking slowly. EMS arrived. Patient states that the first thing she remembers from this episode is the arrival of the medic. Patient was then taken to [facility] for further evaluation. Upon arrival, patient was found to have BP 237/100, HR 76 Past Med Surg Social Fam HX - Past Medical History Medical history: CHF, hypertension, renal disease Psychiatric history: no psych history, other - Past Surgical History Surgical History: , cholecystectomy, hysterectomy, orthopedic, other - Social History Smoking Status: Former smoker (smoked 1ppd x 2years as teenage) Smokeless Tobacco Status: No Alcohol use: none Drug use: none - Family History Mother Name: Mitch Family Member Ethnicity: Non- Living Status: Age at : 76 Cause of : fell and punctured lungs Hx Family Cardiac Disorders: Yes Hx Family Respiratory Disorders: No Hx Family GI Disorders: No Hx Family Endocrine Disorder: Yes (diabetes) Hx Family Neuromuscular Disorders: No Hx Family Neurologic Disorders: No Hx Family HEENT Disorders: No Hx Family Autoimmune Disorders: No Father Name: marlen Espinoza Age: 84 Living Status: Still Living Hx Family Cardiac Disorders: Yes Hx Family Respiratory Disorders: Yes Medications and Allergies Cholecalciferol (Vitamin D3) [Vitamin D3] 2,000 unit PO DAILY 04/29/15 [History] Furosemide [Lasix] 40 mg PO BID 04/29/15 [History] Labetalol HCl [Trandate] 300 mg PO BID 04/29/15 [History] Losartan Potassium [Cozaar] 50 mg PO BID 04/29/15 [History] Potassium Chloride [Klor-Con 10] 10 meq PO DAILY 04/29/15 [History] CloNIDine HCl [Clonidine HCl] 0.3 mg PO TID 10/13/16 [History] Fish Oil/Dha/Epa [Fish Oil 1,200 mg Fish Oil] 1 each PO DAILY 10/13/16 [History] Lisinopril [Zestril] 20 mg PO BID 10/14/16 [History] PredniSONE 30 mg PO DAILY 6 Days 10/16/16 [Rx] Albuterol Sulfate [Albuterol Inhaler] 1 - 2 puff IH Q4-6H PRN 01/28/17 [History] Ramipril [Ramipril] 10 mg PO BID 10/23/16 [History] Allergies amlodipine Allergy (Verified 10/13/16 18:38) Nausea Hydralazine Allergy (Verified 10/13/16 18:38) Nausea All Systems: A 10-system review of systems was performed and is negative for pertinent findings except as documented above in the HPI. Physical Examination - Vital Signs Vital Signs: Initial Vital Signs Temp Pulse Resp BP Pulse Ox 97.8 F 72 15 225/99 97 10/23/16 04:53 10/23/16 04:53 10/23/16 04:53 10/23/16 04:53 10/23/16 04:53 - Constitutional General appearance: comfortable, other (heart s1 2 audible, LUNGs; CTA EXT: no edema) - Neurologic Detailed motor examination: full strength in all major muscle groups Motor examination - right side: 5/5: deltoids, biceps, triceps, wrist flexion, wrist extension, strap machine operator, hip flexors, tibialis Anterior, quadriceps, toe extension (EHL), plantarflexion Motor examination - left side: 5/5: deltoids, biceps, triceps, wrist flexion, wrist extension, hip flexors, strap machine operator, quadriceps, tibialis Anterior, toe extension (EHL), plantarflexion Mental Status Examination: awake, alert, oriented to person, oriented to place, oriented to time, follows commands appropriately, answers questions appropriately, no agnosia, no aphasia, no aproxia Cranial nerve examination: PERRL, EOMI, visual hernández intact, corneal reflexes brisk symmetrically, sensory to face intact, mastication intact, no facial asymmetry is present, no dysarthria, hearing is intact symmetrically, soft palate elevates bilaterally upon phonation, gag reflex intact, flexes SCM and trapezius muscles symmetrically with full power, tongue protrudes midline, no atrophy or facial fasiculations present Cerebellar examination: no dysmetria, performs finger to nose and heel to thomason symmetrically without ataxia, no gait ataxia, no truncal ataxia, no difficulty with rapid alternating movements Results - Laboratory Findings CBC and BMP: 10/24/16 04:56 10/25/16 04:51 Abnormal lab findings: Abnormal lab results WBC 11.2 K/mcL (4.3-11.1) H 10/24/16 04:56 Hgb 10.7 g/dL (11.5-15.4) L 10/24/16 04:56 Hct 33.4 % (35.3-44.9) L 10/24/16 04:56 MCH 27.4 pg (28.0-33.3) L 10/24/16 04:56 BUN 41 mg/dL (7-20) H 10/25/16 04:51 Creatinine 2.41 mg/dL (0.57-1.11) H 10/25/16 04:51 Est GFR ( Amer) 25 (> 60) L 10/25/16 04:51 Est GFR (Non-Af Amer) 21 (> 60) L 10/25/16 04:51 Glucose 127 mg/dL (70-99) H 10/25/16 04:51 Phosphorus 5.4 mg/dL (2.3-4.7) H 10/24/16 04:56 Troponin I 0.07 ng/mL (0-0.03) H* 10/23/16 20:08 Serum Total Protein 5.5 g/dL (6.0-8.3) L 10/25/16 04:51 Albumin 2.4 g/dL (3.5-5.0) L 10/25/16 04:51 Albumin/Globulin Ratio 0.8 (1.1-2.2) L 10/25/16 04:51 Triglycerides 154 mg/dL (< 150) H 10/24/16 04:56 Cholesterol 223 mg/dL (< 200) H 10/24/16 04:56 LDL Cholesterol, Calc 159 mg/dL (0-99) H 10/24/16 04:56 VLDL Cholesterol, Calc 31 mg/dL (< 31) H 10/24/16 04:56 HDL Cholesterol 33 mg/dL (40-59) L 10/24/16 04:56 Cholesterol/HDL Ratio 6.8 (0-4.9) H 10/24/16 04:56 Consult Discharge Plan - Plan Referrals: Trung Bernabe DO [Primary Care Provider] - 11/02/16 1:00 pm
--- NOTE | 2016-10-25 11:44 | Nephrology Progress Note ---
Date of Encounter: 10/25/16 Time of Encounter: 11:15 - Assessment and Plan (1) Acute kidney injury superimposed on CKD Current Visit: No Status: Acute WESLY/CKD-IGA neph. BP improved. Renal fct somewhat worsening. Lasix held. Pending results renal artery doppler and renal US. Subjective Interval history: Sitting up in bed, states feeling much better. No new complaints. Objective - Vital Signs Vital signs: Vital Signs Temp Pulse Resp BP Pulse Ox 10/25/16 11:26 98 F 66 16 151/77 93 L 10/25/16 10:00 69 16 174/82 94 L 10/25/16 08:07 98.1 F 65 18 174/82 91 L 10/25/16 04:08 98.2 F 69 18 154/74 92 L 10/25/16 00:07 97.7 F 72 14 145/66 95 10/24/16 19:47 98.1 F 72 20 181/79 91 L 10/24/16 16:16 97.9 F 67 16 160/71 93 L 10/24/16 14:00 91 16 149/75 94 L 10/24/16 11:56 98.1 F 61 18 138/71 93 L Intake and Output 10/24/16 10/25/16 10/25/16 23:59 07:59 15:59 Intake Total 720 / 720 0 / 0 600 / 600 Output Total 600 / 600 1050 / 1050 800 / 800 Balance 120 / 120 -1050 / -1050 -200 / -200 Intake: Oral 720 / 720 0 / 0 600 / 600 Output: Urine 600 / 600 1050 / 1050 800 / 800 Other: Meal Dinner Percent of Meal Consumed 100% Weight 112 kg Patient Weight 10/25/16 23:59 Weight 112 kg - General Appearance General appearance: Present: well-developed, well-nourished, appears started age EENT: Present: mucous membranes moist Neck: Present: no JVD Respiratory: Present: rhonchi Cardiology: Present: regular rate, regular rhythm Additional Comments: trace pitting LE edema Gastrointestinal: Present: normoactive bowel sounds, no tenderness Integumentary: Present: warm and dry Neurologic: Present: alert and oriented x3 Psychiatric: Present: mood/affect appropriate, cooperative - Lab 10/24/16 04:56 10/25/16 04:51 Most recent lab results Calcium 8.8 mg/dL (8.6-10.8) 10/25/16 04:51 Phosphorus 5.4 mg/dL (2.3-4.7) H 10/24/16 04:56 Magnesium 2.1 mg/dL (1.6-2.6) 10/24/16 04:56 Consult Discharge Plan - Plan Referrals: Trung Bernabe DO [Primary Care Provider] - 11/02/16 1:00 pm
--- NOTE | 2016-10-25 18:02 | Internal Med Progress Note ---
Date of Encounter: 10/25/16 Time of Encounter: 14:00 - Assessment and plan (1) Elevated troponin Current Visit: Yes Status: Acute Assessment and plan: Based on cardiology recommendation this is most likely a demand ischemia. may need stress test as an outpatient add aspirin , statin (2) IgA nephropathy determined by biopsy of kidney Current Visit: Yes Status: Acute (3) Acute kidney injury superimposed on CKD Current Visit: No Status: Acute Assessment and plan: Per nephrology team, hold diuretics for today monitor renal function tomorrow awaiting result of renal artery ultrasound (4) Unresponsiveness Current Visit: Yes Status: Acute Assessment and plan: Based on neurology recommendation most likely secondary to hypertensive crisis (5) Anxiety disorder Current Visit: Yes Status: Acute Qualifiers: Anxiety disorder type: unspecified anxiety disorder Qualified Code(s): F41.9 - Anxiety disorder, unspecified (6) Dyslipidemia Current Visit: Yes Status: Acute Assessment and plan: Continue statin (7) Hyperuricemia Current Visit: Yes Status: Acute (8) Vitamin D insufficiency Current Visit: Yes Status: Acute Assessment and plan: Add vitamin D supplement (9) Anxiety disorder Current Visit: Yes Status: Acute Assessment and plan: Continue SSRI Qualifiers: Anxiety disorder type: other anxiety disorder Qualified Code(s): F41.8 - Other specified anxiety disorders (10) Malignant hypertension Current Visit: Yes Status: Acute Assessment and plan: May need further workup as an outpatient for any endocrine causes would add small dose of Cardura - Time Spent With Patient Plan discussed with patient, possible discharge next 24 hour, monitor renal function, 25 - 35 minutes - Subjective Interval history: Patient is feeling better. Patient denies any motor or sensory changes. Patient denies any chest pain or shortness of breath. Patient denies any headache. Discussed with staff no episode of hypoxemia overnight on room air - Constitutional Vitals: Temp Pulse Resp BP Pulse Ox 97.7 F 67 18 187/95 94 L 10/25/16 16:14 10/25/16 16:14 10/25/16 16:14 10/25/16 16:14 10/25/16 16:14 General appearance: Present: cooperative, A&O X 3, no acute distress, obese, answers questions appropriately - Eye Eye exam: Present: EOMI, conjuntiva pink, sclera anicteric - Neck Neck exam general surgery: Present: supple, trachea midline. Absent: lymphadenopathy - Respiratory Respiratory exam: Present: CTAB. Absent: accessory muscle use, rales, rhonchi, wheezes - GI/Abdominal GI/Abdominal exam: Present: normal bowel sounds, soft, no peritoneal signs. Absent: distended, tenderness - Extremities Exam Extremities exam: Present: warm, radial pulses palpable and symetrical. Absent : calf tenderness, cyanotic, pedal edema - Skin Skin exam: Present: dry, intact Internal Medicine: Result - Labs CBC & Chem 7: 10/24/16 04:56 10/25/16 04:51 Labs: BMP 10/25/16 04:51 Sodium 139 Potassium 3.9 Chloride 102 Carbon Dioxide 26 BUN 41 H Creatinine 2.41 H Glucose 127 H Calcium 8.8 Liver Function 10/25/16 Range/Units 04:51 Total Bilirubin 0.6 (0.2-1.2) mg/dL AST 16 (5-34) Units/L ALT 26 (0-55) Units/L Alkaline Phosphatase 81 (38-126) Units/L Albumin 2.4 L (3.5-5.0) g/dL - Impressions Impressions Retroperitoneum Ultrasound 10/25/16 14:30 IMPRESSION: No hydronephrosis. 1.9 cm left renal cyst. D/ / Raphael Ragsdale MD / Raphael Ragsdale MD Interpreting Provider: Raphael Ragsdale MD Consult Discharge Plan - Plan Referrals: Trung Bernabe DO [Primary Care Provider] - 11/02/16 1:00 pm
[2016-10-26] MEDS: niCARdipine 40 MG/200 ML MLS IVC SCH ×2 (03:59→11:39)
[2016-10-26] MEDS: *HR* Enoxaparin 30 MG/0.3 ML SYRINGE SQ SCH (06:10)
[2016-10-26 06:13] LABS: Albumin 2.5 g/dL (3.5-5.0); Albumin/Globulin Ratio 0.7 (1.1-2.2); Bilirubin,Total 0.9 mg/dL (0.2-1.2); Calcium 9.2 mg/dL (8.6-10.8); Globulin 3.4 g/dL (2.4-3.5); Potassium 4.3 mEq/L (3.5-4.5); Total Protein 5.9 g/dL (6.0-8.3)
[2016-10-26] MEDS: Acetaminophen 325 MG TABLET PO PRN ×3 (06:13→21:21)
[2016-10-26] MEDS: cloNIDine HCl 0.1 MG TABLET PO SCH ×3 (07:40→19:53)
[2016-10-26] MEDS: Aspirin 81 MG TAB.CHEW PO SCH (07:41)
[2016-10-26] MEDS: Cholecalciferol (D-3) 1,000 UNIT TABLET PO SCH (07:41)
[2016-10-26] MEDS: Thiamine (B-1) 100 MG TABLET PO SCH (07:41)
[2016-10-26] MEDS: FISH OIL 1200MG PO SCH (07:41)
--- NOTE | 2016-10-26 09:05 | Arterial Study Report ---
Renal Duplex Patient Name:Bridgette Barnes Order Number:[id number] Procedure Date:10/25/2016 Date:1955ge:61 yrs Gender:Female Height: cm / inWeight:111.59 kg / 246.00 lb Location:[facility] Room #: [facility] [employer] Groom:JAVIER HodgesT Referring MD:Selvin Layton DO social staff worker:Trung Santana DO Reading MD:Nelson Jolley MD Primary Indications:resistant hypertension Risk Factors Yes/No Hypertension Yes Hypercholesterolemia Yes Impressions: Findings: bilateral renal artery is hemodynamically well maintained. Findings Renal Anatomy: The right kidney size measures 11.6 x 4.8 x 4.9 cm. The left kidney size measures 11 x 4.1 x 4.9 cm. Prior Study: No prior study available for comparison. Renal Duplex Right RAR:1.0 Left RAR:.7 Side Vessel PSV EDV RI PI Accel Aorta 122.00 12.00 0.90 Left Distal Renal Artery 87.00 17.00 0.80 Left Renal Artery Hilum 62.00 11.00 0.82 Right Proximal Renal Artery 128.00 23.00 0.82 Right Mid Renal Artery 111.00 17.00 0.85 Right Distal Renal Artery 98.00 21.00 0.79 Right Renal Artery Hilum 44.00 9.00 0.80 Updated by Nelson Jolley MD on 10/26/2016 8:59:48 AM electronically signed on 10/26/2016 8:59:57 AM with status of Final
--- NOTE | 2016-10-26 11:55 | Internal Med Progress Note ---
Date of Encounter: 10/26/16 Time of Encounter: 11:53 - Assessment and plan (1) Elevated troponin Current Visit: Yes Status: Acute Assessment and plan: Likely related to demand ischemia and hypertensive urgency. Cardiology follow- up appreciated, recommend no inpatient intervention. Recommend outpatient follow-up for possible stress testing. (2) Hypertensive urgency Current Visit: Yes Status: Acute Assessment and plan: Patient is noted to have long-standing uncontrolled/poorly controlled hypertension. Has been on IV nicardipine drip during this admission, currently off the trip. Blood pressure stable and better controlled. Continue to monitor closely. (3) Unresponsiveness Current Visit: Yes Status: Acute Assessment and plan: One episode of unresponsiveness at home, likely related to underlying obstructive sleep apnea/obesity hypoventilation syndrome. Patient will benefit from outpatient sleep studies. Neurology consult appreciated, less likely stroke or seizure. MRI brain showed no acute abnormality, recommend no further testing. (4) Chronic kidney disease (CKD) Current Visit: Yes Status: Chronic Assessment and plan: Secondary to IgA nephropathy. Serum creatinine worsened during this admission, noted to be trending down today. Continue to monitor serum creatinine and urine output closely. Continue to hold DIEUDONNE inhibitor/ARB/diuretics until renal function stabilizes. Renal follow-up appreciated. Qualifiers: Chronic kidney disease stage: stage 3 (moderate) Qualified Code(s): N18.3 - Chronic kidney disease, stage 3 (moderate) (5) Diastolic CHF Current Visit: Yes Status: Chronic Qualifiers: Congestive heart failure chronicity: chronic Qualified Code(s): I50.32 - Chronic diastolic (congestive) heart failure (6) IgA nephropathy determined by biopsy of kidney Current Visit: Yes Status: Chronic (7) Malignant hypertension Current Visit: Yes Status: Chronic (8) Vitamin D insufficiency Current Visit: Yes Status: Chronic Assessment and plan: Continue vitamin D supplements. (9) Morbid obesity with BMI of 40.0-44.9, adult Current Visit: Yes Status: Chronic - Subjective Interval history: Reports no chest pain, shortness of breath, headache or blurred vision. No further episodes of unresponsiveness since admission. - Constitutional Vitals: Temp Pulse Resp BP Pulse Ox 98.4 F 75 18 173/87 94 L 10/26/16 11:15 10/26/16 11:46 10/26/16 11:15 10/26/16 11:15 10/26/16 11:15 General appearance: Present: A&O X 3, obese, answers questions appropriately - Respiratory Respiratory exam: Present: CTAB. Absent: accessory muscle use, rales, rhonchi, wheezes - Cardiovascular Cardiovascular exam: Present: RRR, +S1, +S2. Absent: diastolic murmur, gallop, rubs, systolic murmur - GI/Abdominal GI/Abdominal exam: Present: normal bowel sounds, soft, no peritoneal signs. Absent: distended, tenderness - Extremities Exam Extremities exam: Present: full ROM, warm, radial pulses palpable and symetrical. Absent: calf tenderness, cyanotic, pedal edema - Neurological Exam Neurological exam: Present: CN II-XII intact, oriented X3, no focal deficits. Absent: pronater drift, facial droop, speech deficit Internal Medicine: Result - Labs CBC & Chem 7: 10/24/16 04:56 10/26/16 05:13 Labs: BMP 10/26/16 05:13 Sodium 138 Potassium 4.3 Chloride 103 Carbon Dioxide 24 BUN 34 H Creatinine 2.14 H Glucose 130 H Calcium 9.2 Liver Function 10/26/16 Range/Units 05:13 Total Bilirubin 0.9 (0.2-1.2) mg/dL AST 15 (5-34) Units/L ALT 25 (0-55) Units/L Alkaline Phosphatase 86 (38-126) Units/L Albumin 2.5 L (3.5-5.0) g/dL - Impressions Impressions Retroperitoneum Ultrasound 10/25/16 14:30 IMPRESSION: No hydronephrosis. 1.9 cm left renal cyst. D/ / Raphael Ragsdale MD / Raphael Ragsdale MD Interpreting Provider: Raphael Ragsdale MD Consult Discharge Plan - Plan Referrals: Trung Bernabe DO [Primary Care Provider] - 11/02/16 1:00 pm
--- NOTE | 2016-10-26 12:28 | Nephrology Progress Note ---
Date of Encounter: 10/26/16 Time of Encounter: 12:10 - Assessment and Plan (1) Acute kidney injury superimposed on CKD Current Visit: No Status: Acute WESLY/CKD-IGA neph. BP improved. Renal fct improving. Excellent urine output. Renal artery doppler and renal US negative findings. Subjective Interval history: Sitting up in bed, states feeling much better. Eating lunch. No new complaints. Wants to go home. Objective - Vital Signs Vital signs: Vital Signs Temp Pulse Resp BP Pulse Ox 10/26/16 11:46 75 10/26/16 11:15 98.4 F 76 18 173/87 94 L 10/26/16 09:46 148/70 10/26/16 07:40 73 10/26/16 07:14 98.5 F 79 18 189/89 95 10/26/16 05:24 98.1 F 75 17 179/84 95 10/26/16 00:00 97.8 F 74 17 151/67 95 10/25/16 21:30 164/71 10/25/16 19:45 98.4 F 73 16 203/92 95 10/25/16 16:14 97.7 F 67 18 187/95 94 L 10/25/16 15:35 97.7 F 67 18 190/82 94 L 10/25/16 12:46 110 Intake and Output 10/25/16 10/26/16 10/26/16 23:59 07:59 15:59 Intake Total 800 / 800 1400 / 1400 240 / 240 Output Total 800 / 800 1050 / 1050 Balance 0 / 0 350 / 350 240 / 240 Intake: Oral 800 / 800 1400 / 1400 240 / 240 Output: Urine 800 / 800 1050 / 1050 Other: Meal Breakfast Percent of Meal Consumed 100% Weight 112.5 kg Patient Weight 10/26/16 23:59 Weight 112.5 kg - General Appearance General appearance: Present: well-developed, well-nourished, appears started age EENT: Present: mucous membranes moist Neck: Present: no JVD Respiratory: Present: clear Cardiology: Present: regular rate, regular rhythm Additional Comments: trace edema Gastrointestinal: Present: normoactive bowel sounds, no tenderness Integumentary: Present: warm and dry Neurologic: Present: alert and oriented x3 Psychiatric: Present: mood/affect appropriate, cooperative - Lab 10/24/16 04:56 10/26/16 05:13 Most recent lab results Calcium 9.2 mg/dL (8.6-10.8) 10/26/16 05:13 Phosphorus 5.4 mg/dL (2.3-4.7) H 10/24/16 04:56 Magnesium 2.1 mg/dL (1.6-2.6) 10/24/16 04:56 Consult Discharge Plan - Plan Referrals: Trung Bernabe DO [Primary Care Provider] - 11/02/16 1:00 pm
[2016-10-27 05:31] LABS: Calcium 9.4 mg/dL (8.6-10.8); Potassium 4.5 mEq/L (3.5-4.5)
[2016-10-27] MEDS: *HR* Enoxaparin 30 MG/0.3 ML SYRINGE SQ SCH (06:05)
[2016-10-27] MEDS: cloNIDine HCl 0.1 MG TABLET PO SCH (07:45)
[2016-10-27] MEDS: Furosemide 40 MG TABLET PO SCH (07:45)
[2016-10-27] MEDS: Cholecalciferol (D-3) 1,000 UNIT TABLET PO SCH (07:45)
[2016-10-27] MEDS: Thiamine (B-1) 100 MG TABLET PO SCH (07:45)
[2016-10-27] MEDS: Aspirin 81 MG TAB.CHEW PO SCH (07:45)
[2016-10-27] MEDS: FISH OIL 1200MG PO SCH (07:46)
--- NOTE | 2016-10-27 09:01 | Nephrology Progress Note ---
Date of Encounter: 10/27/16 Time of Encounter: 08:30 - Assessment and Plan (1) Acute kidney injury superimposed on CKD Current Visit: No Status: Acute WESLY/CKD-IGA neph. BP stable. Renal stable. Excellent urine output. Renal artery doppler and renal US negative findings. Will follow in office. Subjective Interval history: Sitting up in bed, states feeling much better. Eating lunch. No new complaints. Wants to go home. Objective - Vital Signs Vital signs: Vital Signs Temp Pulse Resp BP Pulse Ox 10/27/16 07:54 98.1 F 64 14 199/96 96 10/27/16 04:21 98.5 F 68 16 155/78 96 10/26/16 23:42 97.7 F 68 16 160/63 95 10/26/16 19:55 99 F 79 20 189/87 95 10/26/16 15:39 98.5 F 75 18 171/72 96 10/26/16 14:52 76 177/80 10/26/16 11:46 75 10/26/16 11:15 98.4 F 76 18 173/87 94 L 10/26/16 09:46 148/70 Intake and Output 10/26/16 10/27/16 10/27/16 23:59 07:59 15:59 Intake Total 620 / 620 1100 / 1100 200 / 200 Balance 620 / 620 1100 / 1100 200 / 200 Intake: Oral 620 / 620 1100 / 1100 200 / 200 Other: Meal Dinner Breakfast Percent of Meal Consumed 20% 100% Weight 112 kg Patient Weight 10/27/16 23:59 Weight 112 kg - General Appearance General appearance: Present: well-developed, well-nourished, appears started age EENT: Present: mucous membranes moist Neck: Present: no JVD Respiratory: Present: clear Cardiology: Present: no edema, regular rate, regular rhythm Gastrointestinal: Present: normoactive bowel sounds, no tenderness Integumentary: Present: warm and dry Neurologic: Present: alert and oriented x3 Psychiatric: Present: mood/affect appropriate, cooperative - Lab 10/24/16 04:56 10/27/16 04:48 Most recent lab results Calcium 9.4 mg/dL (8.6-10.8) 10/27/16 04:48 Phosphorus 5.4 mg/dL (2.3-4.7) H 10/24/16 04:56 Magnesium 2.1 mg/dL (1.6-2.6) 10/24/16 04:56 Consult Discharge Plan - Plan Referrals: Trung Bernabe DO [Primary Care Provider] - 11/02/16 1:00 pm
--- NOTE | 2016-10-27 11:13 | Discharge Summary ---
Date of Encounter: 10/27/16 Time of Encounter: 11:10 - Discharge Diagnosis (1) Elevated troponin Priority: Primary Status: Resolved (2) Hypertensive urgency Priority: Primary Status: Resolved (3) Unresponsiveness Priority: Primary Status: Resolved (4) Chronic kidney disease (CKD) Priority: Secondary Status: Chronic Qualifiers: Chronic kidney disease stage: stage 3 (moderate) Qualified Code(s): N18.3 - Chronic kidney disease, stage 3 (moderate) (5) Diastolic CHF Priority: Secondary Status: Chronic Qualifiers: Congestive heart failure chronicity: chronic Qualified Code(s): I50.32 - Chronic diastolic (congestive) heart failure (6) IgA nephropathy determined by biopsy of kidney Priority: Secondary Status: Chronic (7) Malignant hypertension Priority: Secondary Status: Chronic (8) Vitamin D insufficiency Priority: Secondary Status: Chronic (9) Morbid obesity with BMI of 40.0-44.9, adult Priority: Secondary Status: Chronic - Discharge Medications Home Medications: Cholecalciferol (Vitamin D3) [Vitamin D3] 2,000 unit PO DAILY 04/29/15 [History] Furosemide [Lasix] 40 mg PO BID 04/29/15 [History] Labetalol HCl [Trandate] 300 mg PO BID 04/29/15 [History] Potassium Chloride [Klor-Con 10] 10 meq PO DAILY 04/29/15 [History] CloNIDine HCl [Clonidine HCl] 0.3 mg PO TID 10/13/16 [History] Fish Oil/Dha/Epa [Fish Oil 1,200 mg Fish Oil] 1 each PO DAILY 10/13/16 [History] Albuterol Sulfate [Albuterol Inhaler] 1 - 2 puff IH Q4-6H PRN 10/23/16 [History] Allergies/Adverse Reactions: Allergies amlodipine Allergy (Verified 10/13/16 18:38) Nausea Hydralazine Allergy (Verified 10/13/16 18:38) Nausea Procedures/tests Complete & Pending: Procedures Performed prior 72 hours Category Date Time Status US retroperitoneal comp [US] Routine Exams 10/25/16 14:30 Completed EV renal artery image Routine Y 10/25/16 08:30 Completed Date of admission: 10/23/16 10:32 Primary care physician: Trung Bernabe DO Consults: 10/23/16 10:34 Consult to Nephrology [CONS] Routine Consulting Provider: [facility] Reason for Consult: HTN Emergency Call Completed: Yes 10/23/16 12:33 Consult to Cardiology [CONS] Routine Comment: Consulting Provider: [facility] Reason for Consult: elevated troponin Time Notified: 12:39 Call Completed: Yes 10/24/16 12:10 Consult to Neurology [CONS] Routine Consulting Provider: Neurology [facility] Reason for Consult: Unresponsiveness Call Completed: Yes Discharging clinician: Gris Jacobs Anticipated date of discharge: 10/27/16 - Patient Status Disposition: Home, Self-Care Condition: Good Functional capacity at discharge: independent ambulation Overall status at discharge: patient is back to baseline - Discharge Instructions Instructions: Heart Failure (DC), Chronic Hypertension (DC) Follow Up With: Cornelius Perez CNP [Advanced Practice Nurse] - 11/16/16 12:30 pm Selvin Eden DO [Non-Partnered Physician] - 12/01/16 1:00 pm Jean Jaquez MD [Partnered Physician] - 11/04/16 1:15 pm Trung Bernabe DO [Primary Care Provider] - 11/02/16 1:00 pm Additional Instructions: F/up with [facility] in 2-3 weeks F/up with [facility] in 2-3 weeks F/up with /Nephrology in 1-2 weeks - PLEASE KEEP A LOG OF YOUR HEART RATE AND BLOOD PRESSURE AND TAKE WITH YOU TO YOUR FOLLOW UP APPOINTMENTS. - PER DR. EDEN'S OFFICE, THE PATIENT IS TO KEEP FOLLOW UP APPOINTMENT FOR November AT 1PM. AND TO GET LABS DRAWN (RENAL PANEL) IN 2WEEKS AT [facility] 11-10-16. THE NEPHRO OFFICE WILL SEND THEM THE ORDER. - Diet and Activity Activity: resume usual activities as tolerated Diet: low fat, low cholesterol, low salt diet Hospital course: Ms. Barnes is a 61 year old female with the above medical problems, initially admitted after being found unresponsive at home, for a few minutes. Initial labs, chest x-ray and EKG showed no acute abnormality. However, patient was noted to have significantly elevated blood pressure and was started on IV nicardipine drip, which was gradually tapered down along with resuming her home medications. Patient is noted to have difficult to control blood pressure at baseline. She was also noted to have elevated troponins, which was adynamic. Cardiology was consulted and recommended outpatient cardiology follow-up for possible consideration of stress test and her current troponin leak is likely related to uncontrolled blood pressure. She was recently discharged from our hospital after being treated for possible diastolic CHF based on her echocardiogram. Patient was evaluated by neurology for her loss of consciousness. Seizures was less likely and CT head showed no acute evidence of stroke. Her decreased responsiveness was thought to be likely related to obstructive sleep apnea/OHS and she is recommended to undergo sleep studies as an outpatient. She is being discharged with pulmonology follow-up. She was noted to have acute on chronic renal failure and her blood pressure medications including diuretics, Ricardo inhibitors and ARB have been held and her serum creatinine is currently stable. Renal ultrasound was done which showed no new hydronephrosis or obstructive uropathy. Renal artery duplex was done which showed no stenosis. Her Lasix is now restarted. Her blood pressure has overall improved significantly and is stable around 150/80. Patient is now medically stable for discharge with outpatient follow-up with cardiology, nephrology. - Time Spent with Patient Total time spent providing and/or coordinating discharge services: Greater than 30 minutes (45 min) - Constitutional Vitals: Temp Pulse Resp BP Pulse Ox 98.1 F 71 14 127/70 95 10/27/16 07:54 10/27/16 09:55 10/27/16 07:54 10/27/16 09:55 10/27/16 09:55 General appearance: Present: A&O X 3, obese, answers questions appropriately - Respiratory Respiratory exam: Present: CTAB (B/L coarse breath sounds). Absent: accessory muscle use, rales, rhonchi, wheezes - Cardiovascular Cardiovascular exam: Present: RRR, +S1, +S2. Absent: diastolic murmur, gallop, rubs, systolic murmur
[2016-10-27 11:35] VITALS: BP 154/63
== END 2016-10-27 12:39 | disposition home or self-care (01) | DRG 683 ==
LOC: 2NENU → 2NNU 10:31 → SUATTDRO 10:32
PROVIDERS: ADMIT Family Medicine; ATTEND Internal Medicine

== ENCOUNTER 2017-12-08 16:08 | Observation (INO) ==
--- NOTE | 2017-12-08 17:57 | Emergency Department Note ---
Disposition Clinical Impression: TIA (transient ischemic attack) Qualifiers: Transient cerebral ischemia type: unspecified Qualified Code(s): G45.9 - Transient cerebral ischemic attack, unspecified Renal failure (ARF), acute on chronic Qualifiers: Acute renal failure type: unspecified Chronic kidney disease stage: unspecified stage Qualified Code(s): N17.9 - Acute kidney failure, unspecified; N18.9 - Chronic kidney disease, unspecified; N18.9 - Chronic kidney disease, unspecified Anemia Qualifiers: Anemia type: unspecified type Qualified Code(s): D64.9 - Anemia, unspecified Disposition: Admitted As Inpatient Condition: Fair Referrals: Trung Bernabe DO [Primary Care Provider] - Forms: ED Satisfaction Letter Time of Disposition: 20:21 Altered Mental Status HPI - General Chief Complaint: ED Altered Mental Status Stated Complaint: AMS,Ear ache Time Seen by Provider: 12/08/17 17:23 Source: patient, family Limitations: no limitations Nursing Notes Reviewed: Yes Vital Signs Reviewed: Yes - History of Present Illness HPI Narrative: Patient presents with complaint of confusion and the story is that she drove to work today without her contacts and she has very bad vision and additionally when she woke up this morning her came into the room and she was getting ready for bed because she thought that it was nighttime and not the morning. She also went to lunch and they brought her lunch but she does not remember ordering lunch. She had similar episodes 1 year ago as well as one month ago and this was evaluated one year ago but she did not have an evaluation one month ago. Denies any pain in the head, neck, chest, abdomen or back. She denies any localized numbness or weakness of the extremities, slurred speech, facial droop, confusion, fever, vomiting, diarrhea, blood in the urine or stool, dysuria or urinary frequency. Social history: No smoking or alcohol. She is here with her . - Related Data Home Medications Medication Instructions Recorded Confirmed Furosemide [Lasix] 40 mg PO BID 04/29/15 12/08/17 Labetalol HCl [Trandate] 300 mg PO TID 04/29/15 12/08/17 Potassium Chloride [Klor-Con 10] 10 meq PO DAILY 04/29/15 12/08/17 Fish Oil/Dha/Epa [Fish Oil 1,200 1 each PO DAILY 10/13/16 12/08/17 mg Fish Oil] cloNIDine HCl [Clonidine HCl] 0.3 mg PO TID 10/13/16 12/08/17 Calcitriol [Rocaltrol] 0.25 mcg PO DAILY 12/08/17 12/08/17 Doxazosin Mesylate [Cardura] 8 mg PO DAILY 12/08/17 12/08/17 Febuxostat [Uloric] 40 mg PO DAILY 12/08/17 12/08/17 Losartan Potassium [Cozaar] 50 mg PO BID 12/08/17 12/08/17 dilTIAZem HCl [Diltiazem 24Hr ER] 120 mg PO DAILY 12/08/17 12/08/17 Allergies Allergy/AdvReac Type Severity Reaction Status Date / Time amlodipine Allergy Nausea Verified 12/08/17 16:28 Hydralazine Allergy Nausea Verified 12/08/17 16:28 Review of Systems: Constitutional: No fever Vision: No blurred vision ENT: No rhinorrhea Respiratory: No cough Allergic: No allergies : No blood in urine GI: No blood in stool Hematologic: No bruising Dermatologic: No skin rash Musculoskeletal: No pain in the extremities Neuro: No numbness of the extremities Past Medical History - Past Medical History Medical history: Reports: CHF, hypertension, renal disease Surgical history: Reports: , cholecystectomy, hysterectomy, orthopedic , other Psychiatric history: Reports: no psych history, other HORSE SHOW MANAGER history: Reports: 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 EYES: PERRL, EOMI, no scleral icterus NOSE: The nose is normal in appearance without rhinorrhea NECK: Supple without rigidity, no ALEJANDRO RESP: Normal chest excursion with respiration; breath sounds clear and equal bilaterally; no wheezes, rhonchi, or rales CARD: Regular rhythm, without murmurs, rub or gallop ABD: Non-distended; non-tender, soft, without rigidity, rebound or guarding SKIN: Normal for age and race; warm and dry; no apparent lesions, no rash NEUROLOGICAL: Patient is alert and oriented times three. Cranial nerves III- XII are intact. Sensory and motor functions are intact. Strength is 5/5 for flexion and extension in all 4 extremities. Finger to nose testing is equal and normal bilaterally. - General Limitations: no limitations General appearance: alert, in no apparent distress Course Vital Signs Temperature 98.6 F 12/08/17 16:28 Pulse Rate 70 12/08/17 16:28 Respiratory Rate 18 12/08/17 16:28 Blood Pressure 241/110 12/08/17 16:28 O2 Sat by Pulse Oximetry 97 12/08/17 16:28 Temperature 98.6 F 12/08/17 16:28 Pulse Rate 65 12/08/17 19:02 Respiratory Rate 16 12/08/17 19:02 Blood Pressure 191/86 12/08/17 19:02 O2 Sat by Pulse Oximetry 97 12/08/17 19:02 Oxygen Delivery Oxygen Delivery Room Air Altered Mental Status - MDM Narrative Medical decision making narrative: Patient's symptoms concerning for TIA, currently her stroke scale is 0. Head CT , labs are ordered and the patient will be admitted for further evaluation. 1756 I did evaluate and interpret the patient's laboratory evaluation which shows that she has increased creatinine level from acute on chronic renal failure and her CT the brain does not show acute ischemic change or bleed and the concern is for TIA with her confusion and the risk factors and I did speak with the hospitalist accepts the patient for admission. She is not a thrombolytic candidate due to her stroke scale of 0 and prolonged duration of symptoms. 2020 - Medical Records Medical records reviewed: Yes I reviewed the patient's medical records. - Lab Data Lab results reviewed: Yes I reviewed the patient's lab results. Result diagrams: 12/08/17 17:43 12/08/17 17:43 Lab Results 12/08/17 12/08/17 12/08/17 Range/Units 17:43 17:43 19:19 WBC 9.9 (4.3-11.1) K/mcL RBC 3.62 L (3.82-4.97) M/mcL Hgb 10.3 L (11.5-15.4) g/dL Hct 29.9 L (35.3-44.9) % MCV 82.6 L (83.0-100.0) fL MCH 28.5 (28.0-33.3) pg MCHC 34.4 (31.6-35.5) g/dL RDW 12.9 (11.5-14.5) % Plt Count 288 (140-400) K/mcL MPV 9.0 L (9.4-12.4) fL Immature Gran % 0.9 (0-4) % Seg Neutrophils % 76.2 % Lymphocytes % 14.6 % Monocytes % 6.0 % Eosinophils % 1.9 % Basophils % 0.4 % Neutrophils # 7.5 (1.6-8.9) K/mcL Lymphocytes # 1.4 (0.6-4.6) K/mcL Monocytes # 0.6 (0.0-1.3) K/mcL Eosinophils # 0.2 (0.0-0.6) K/mcL Basophils # 0.0 (0.0-0.2) K/mcL Sodium 136 (136-145) mEq/L Potassium 4.5 (3.5-5.1) mEq/L Chloride 101 (98-107) mEq/L Carbon Dioxide 26 (23-29) mEq/L BUN 50 H (8-23) mg/dL Creatinine 3.37 H (0.60-1.20) mg/dL Est GFR ( Amer) 17 L (> 60) Est GFR (Non-Af Amer) 14 L (> 60) BUN/Creatinine Ratio 15 (6-26) Glucose 101 (70-105) mg/dL Calculated Osmolality 295 (280-300) Calcium 10.7 H (8.6-10.3) mg/dL Total Bilirubin 0.4 (0.3-1.0) mg/dL Direct Bilirubin 0.0 (0.0-0.2) mg/dL Indirect Bilirubin 0.4 (0.0-1.2) mg/dL AST 15 (13-39) Units/L ALT 19 (7-52) Units/L Alkaline Phosphatase 178 H (34-104) Units/L Troponin I 0.03 (< 0.04) ng/mL Serum Total Protein 7.8 (6.4-8.9) g/dL Albumin 4.2 (3.5-5.7) g/dL Globulin 3.6 H (2.4-3.5) g/dL Albumin/Globulin Ratio 1.2 (1.1-2.2) Urine Color Yellow (Yellow) Urine Clarity Clear (Clear) Urine pH 6.5 (5.0-8.0) pH Units Ur Specific [place] 1.007 L (1.010-1.025) Urine Protein >=300 H (Neg-Trace) mg/dL Urine Glucose (UA) Normal (Normal) mg/dL Urine Ketones Negative (Negative) mg/dL Urine Blood Moderate H (Negative) Urine Nitrite Negative (Negative) Urine Bilirubin Negative (Negative) Urine Urobilinogen Normal (Normal) mg/dL Ur Leukocyte Esterase Negative (Negative) Urine Microscopic RBC 5-15 H (0-3) per hpf Urine Microscopic WBC 3-5 H (0-3) per hpf Ur Squamous Epith Cells Moderate H (None-Few) per lpf Urine Bacteria None Seen (None-Few) per hpf Hyaline Casts None Seen (None-Few) per lpf Ur Culture Indicated? NO (NO) Urine Opiates Screen (Vdgklj=954) ng/mL Ur Barbiturates Screen (Yxyqbg=941) ng/mL Ur Phencyclidine Scrn (Cutoff=25) ng/mL Ur Amphetamines Screen (Fsaqph=3702) ng/mL U Benzodiazepines Scrn (Pcbrgu=886) ng/mL Urine Cocaine Screen (Cutoff= 300) ng/mL U Marijuana (THC) Screen (Cutoff = 50) ng/mL Ethyl Alcohol < 10 (0-10) mg/dL 12/08/17 Range/Units 19:19 WBC (4.3-11.1) K/mcL RBC (3.82-4.97) M/mcL Hgb (11.5-15.4) g/dL Hct (35.3-44.9) % MCV (83.0-100.0) fL MCH (28.0-33.3) pg MCHC (31.6-35.5) g/dL RDW (11.5-14.5) % Plt Count (140-400) K/mcL MPV (9.4-12.4) fL Immature Gran % (0-4) % Seg Neutrophils % % Lymphocytes % % Monocytes % % Eosinophils % % Basophils % % Neutrophils # (1.6-8.9) K/mcL Lymphocytes # (0.6-4.6) K/mcL Monocytes # (0.0-1.3) K/mcL Eosinophils # (0.0-0.6) K/mcL Basophils # (0.0-0.2) K/mcL Sodium (136-145) mEq/L Potassium (3.5-5.1) mEq/L Chloride (98-107) mEq/L Carbon Dioxide (23-29) mEq/L BUN (8-23) mg/dL Creatinine (0.60-1.20) mg/dL Est GFR ( Amer) (> 60) Est GFR (Non-Af Amer) (> 60) BUN/Creatinine Ratio (6-26) Glucose (70-105) mg/dL Calculated Osmolality (280-300) Calcium (8.6-10.3) mg/dL Total Bilirubin (0.3-1.0) mg/dL Direct Bilirubin (0.0-0.2) mg/dL Indirect Bilirubin (0.0-1.2) mg/dL AST (13-39) Units/L ALT (7-52) Units/L Alkaline Phosphatase (34-104) Units/L Troponin I (< 0.04) ng/mL Serum Total Protein (6.4-8.9) g/dL Albumin (3.5-5.7) g/dL Globulin (2.4-3.5) g/dL Albumin/Globulin Ratio (1.1-2.2) Urine Color (Yellow) Urine Clarity (Clear) Urine pH (5.0-8.0) pH Units Ur Specific [place] (1.010-1.025) Urine Protein (Neg-Trace) mg/dL Urine Glucose (UA) (Normal) mg/dL Urine Ketones (Negative) mg/dL Urine Blood (Negative) Urine Nitrite (Negative) Urine Bilirubin (Negative) Urine Urobilinogen (Normal) mg/dL Ur Leukocyte Esterase (Negative) Urine Microscopic RBC (0-3) per hpf Urine Microscopic WBC (0-3) per hpf Ur Squamous Epith Cells (None-Few) per lpf Urine Bacteria (None-Few) per hpf Hyaline Casts (None-Few) per lpf Ur Culture Indicated? (NO) Urine Opiates Screen Negative (Ysgjpk=681) ng/mL Ur Barbiturates Screen Negative (Csrlur=552) ng/mL Ur Phencyclidine Scrn Negative (Cutoff=25) ng/mL Ur Amphetamines Screen Negative (Gaksmg=6110) ng/mL U Benzodiazepines Scrn Negative (Fkaupy=851) ng/mL Urine Cocaine Screen Negative (Cutoff= 300) ng/mL U Marijuana (THC) Screen Negative (Cutoff = 50) ng/mL Ethyl Alcohol (0-10) mg/dL - Radiology Data Radiology results reviewed: Yes I reviewed the patient's radiology results. TPA Checklist - LKW: 3-4.5 hrs Add. Warnings/Precautions Patient/family understanding: The patient/family members have been counseled and understood the risk, benefit , and alternatives of treatment.
[2017-12-08 17:58] LABS: Basophils % 0.4 %; Eosinophils # 0.2 K/mcL (0.0-0.6); Eosinophils % 1.9 %; Hematocrit 29.9 % (35.3-44.9); Hemoglobin 10.3 g/dL (11.5-15.4); Immature Granulocytes % 0.9 % (0-4); Lymphocytes # 1.4 K/mcL (0.6-4.6); Lymphocytes % 14.6 %; Mean Corpuscular HGB Conc 34.4 g/dL (31.6-35.5); Mean Corpuscular Hemoglobin 28.5 pg (28.0-33.3); Mean Corpuscular Volume 82.6 fL (83.0-100.0); Monocytes # 0.6 K/mcL (0.0-1.3); Neutrophils # 7.5 K/mcL (1.6-8.9); Platelet Count 288 K/mcL (140-400); Red Blood Count 3.62 M/mcL (3.82-4.97); Red Cell Distribution Width 12.9 % (11.5-14.5); Segmented Neutrophils % 76.2 %
[2017-12-08 18:15] LABS: Troponin I 0.03 ng/mL (< 0.04)
[2017-12-08 18:17] LABS: Alanine Aminotransferase 19 Units/L (7-52); Albumin 4.2 g/dL (3.5-5.7); Albumin/Globulin Ratio 1.2 (1.1-2.2); Alkaline Phosphatase 178 Units/L (34-104); Aspartate Amino Transferase 15 Units/L (13-39); BUN/Creatinine Ratio 15 (6-26); Bilirubin,Indirect 0.4 mg/dL (0.0-1.2); Bilirubin,Total 0.4 mg/dL (0.3-1.0); Blood Urea Nitrogen 50 mg/dL (8-23); Calcium 10.7 mg/dL (8.6-10.3); Carbon Dioxide 26 mEq/L (23-29); Chloride 101 mEq/L (98-107); Globulin 3.6 g/dL (2.4-3.5); Glucose 101 mg/dL (70-105); Osmolality,Calculated 295 (280-300); Potassium 4.5 mEq/L (3.5-5.1); Sodium 136 mEq/L (136-145); Total Protein 7.8 g/dL (6.4-8.9); eGFR For African Americans 17 (> 60); eGFR For Non-African Americans 14 (> 60)
[2017-12-08 18:19] LABS: Ethanol < 10 mg/dL (0-10)
[2017-12-08] MEDS ORDERED: 0.9 % Sodium Chloride 1,000 ML IVC ONE (19:02)
[2017-12-08 19:25] LABS: Bilirubin,Urine Negative (Negative); Blood,Urine Moderate (Negative); Clarity,Urine Clear (Clear); Color,Urine Yellow (Yellow); Glucose,Urine (UA) Normal (Normal); Ketones,Urine Negative (Negative); Leukocyte Esterase,Urine Negative (Negative); Nitrite,Urine Negative (Negative); PH,Urine 6.5 pH Units (5.0-8.0); Protein,Urine >=300 mg/dL (Neg-Trace); Specific Gravity,Urine 1.007 (1.010-1.025); Urobilinogen,Urine Normal (Normal)
[2017-12-08 19:28] LABS: Bacteria,Urine None Seen per hpf (None-Few); Hyaline Casts,Urine None Seen per lpf (None-Few); Squamous Epithelial Cell,Urine Moderate per lpf (None-Few)
[2017-12-08 19:36] LABS: Amphetamine Screen,Urine Negative ng/mL (Cutoff=1000); Barbiturate Screen,Urine Negative ng/mL (Cutoff=200); Benzodiazepines Screen,Urine Negative ng/mL (Cutoff=200); Cannabinoid Screen,Urine Negative ng/mL (Cutoff = 50); Cocaine Screen,Urine Negative ng/mL (Cutoff= 300); Opiate Screen,Urine Negative ng/mL (Cutoff=300); Phencyclidine Screen,Urine Negative ng/mL (Cutoff=25)
[2017-12-08] MEDS ORDERED: *HR* Labetalol 20 MG/4 ML SYRINGE IVP ONE (21:58)
[2017-12-08] MEDS ORDERED: Acetaminophen 325 MG TABLET PO PRN (23:42)
[2017-12-08] MEDS ORDERED: Naloxone 0.4 MG/ML INJ IVP PRN (23:42)
[2017-12-08] MEDS ORDERED: Nitroglycerin 1 INCH/GM PACKET TP PRN (23:54)
--- NOTE | 2017-12-09 00:11 | Internal Med History&Physical ---
Date of Encounter: 12/08/17 Time of Encounter: 23:00 Assessment and Plan (1) Acute encephalopathy Current visit: Yes Status: Acute Patient has short-term memory loss 2 today. Etiology is undetermined. Has similar problem before. - Hypertensive encephalopathy versus TIA - Continuous cardiac monitoring to rule out arrhythmia - CT head has been done, unremarkable - Echo and duplex carotid - Try to control high blood pressure - Consult neurology in a.m. (2) Renal failure (ARF), acute on chronic Current visit: Yes Status: Acute Patient has elevated creatinine level from baseline. Patient has history of CKD. Patient has a good intake and can drink water. Patient has good urine output. - encourage patient to drink water - Avoid nephrotoxic medications - Renal US to r/o obstruction - Consul nephrology in AM Qualifiers: Acute renal failure type: unspecified Chronic kidney disease stage: stage 3 (moderate) Qualified Code(s): N17.9 - Acute kidney failure, unspecified; N18.3 - Chronic kidney disease, stage 3 (moderate); N18.3 - Chronic kidney disease, stage 3 (moderate) (3) Malignant hypertensive urgency Current visit: No Status: Acute We will start nicardipine drip at this point. (4) IgA nephropathy Current visit: No Status: Chronic Internal Medicine - H&P: HPI Chief complaint: Confusion Admitted From: Home Plans for Post Hospital Care: Home History of present illness: Ms. Barnes is a 62 year old female with history of hypertension, CKD, presented to ER for confusion and short-term memory loss. Patient has similar problem since 1 year ago and has similar attack for twice since last year. Patient had complete workups and neurology consult previously. No etiology identified. Today, patient has another 2 episode of confusion and short-term memory loss, last 5-10 minutes. Patient denies headache, lightheaded, dizziness, nausea, fever, focal weakness/numbness/tingling, slurred speech, or double vision. Patient has poorly controlled BP with her BP level is always at 180-200 level at home, even on multiple high blood pressure medications. Patient was admitted for further management. When I saw patient in floor, she is awake alert, in no acute distress. Past Med Surg Social Fam HX - Past Medical History Medical history: CHF, hypertension, renal disease Psychiatric history: no psych history, other - Past Surgical History Surgical History: , cholecystectomy, hysterectomy, orthopedic, other - Social History Smoking Status: Former smoker Smokeless Tobacco Status: No Alcohol use: none Drug use: none - Family History Mother Family Member Ethnicity: Non- Living Status: Hx Family Cardiac Disorders: Yes Hx Family Respiratory Disorders: No Hx Family GI Disorders: No Hx Family Endocrine Disorder: Yes Hx Family Neuromuscular Disorders: No Hx Family Neurologic Disorders: No Hx Family HEENT Disorders: No Hx Family Autoimmune Disorders: No Father Living Status: Still Living Hx Family Cardiac Disorders: Yes Hx Family Respiratory Disorders: Yes Internal Medicine - H&P: Meds Furosemide [Lasix] 40 mg PO BID 04/29/15 [History] Labetalol HCl [Trandate] 300 mg PO TID 04/29/15 [History] Potassium Chloride [Klor-Con 10] 10 meq PO DAILY 04/29/15 [History] Fish Oil/Dha/Epa [Fish Oil 1,200 mg Fish Oil] 1 each PO DAILY 10/13/16 [History] cloNIDine HCl [Clonidine HCl] 0.3 mg PO TID 10/13/16 [History] Calcitriol [Rocaltrol] 0.25 mcg PO DAILY 12/08/17 [History] Doxazosin Mesylate [Cardura] 8 mg PO DAILY 12/08/17 [History] Febuxostat [Uloric] 40 mg PO DAILY 12/08/17 [History] Losartan Potassium [Cozaar] 50 mg PO BID 12/08/17 [History] dilTIAZem HCl [Diltiazem 24Hr ER] 120 mg PO DAILY 12/08/17 [History] 3 Allergy/AdvReac Type Severity Reaction Status Date / Time amlodipine Allergy Nausea Verified 12/08/17 16:28 Hydralazine Allergy Nausea Verified 12/08/17 16:28 All Systems PM: A 10-system review of systems was performed and is negative for pertinent findings except as documented above in the HPI. - Constitutional Vitals: Temp Pulse Resp BP Pulse Ox 98 F 71 20 216/98 96 12/08/17 21:52 12/08/17 21:52 12/08/17 21:52 12/08/17 21:53 12/08/17 21:52 General appearance: Present: A&O X 3, no acute distress, answers questions appropriately - Head Head exam: Present: atraumatic, normocephalic - Eye Eye exam: Present: PERRL, conjuntiva pink, sclera anicteric Pupils: Present: PERRL - Neck Neck exam general surgery: Present: supple, trachea midline. Absent: lymphadenopathy - Respiratory Respiratory exam: Present: CTAB. Absent: accessory muscle use, rales, rhonchi, wheezes - Cardiovascular Cardiovascular exam: Present: RRR, +S1, +S2. Absent: diastolic murmur, gallop, rubs, systolic murmur - GI/Abdominal GI/Abdominal exam: Present: normal bowel sounds, soft, no peritoneal signs. Absent: distended, tenderness - Extremities Exam Extremities exam: Present: warm, radial pulses palpable and symmetrical. Absent : calf tenderness, cyanotic, pedal edema - Neurological Exam Neurological exam: Present: CN II-XII intact, oriented X3, no focal deficits. Absent: pronater drift, facial droop, speech deficit - Skin Skin exam: Present: dry, intact Internal Med - H&P Results - Labs CBC & Chem 7: 12/08/17 17:43 12/08/17 17:43 - EKG Data -: EKG Interpreted by Myself EKG shows normal: sinus rhythm Rate: normal
[2017-12-09] MEDS: cloNIDine HCl 0.1 MG TABLET PO SCH ×4 (00:49→19:51)
[2017-12-09] MEDS ORDERED: niCARdipine 40 MG/200 ML MLS IVC ONE (01:42)
[2017-12-09] MEDS: niCARdipine 40 MG/200 ML MLS IVC SCH ×2 (02:13→07:54)
[2017-12-09 03:24] LABS: Magnesium 2.3 mg/dL (1.6-2.6)
[2017-12-09 03:41] LABS: Basophils % 0.3 %; Eosinophils # 0.2 K/mcL (0.0-0.6); Eosinophils % 1.9 %; Hematocrit 27.2 % (35.3-44.9); Hemoglobin 9.3 g/dL (11.5-15.4); Immature Granulocytes % 0.8 % (0-4); Immature Platelets 1.4 % (1.1-6.1); Lymphocytes # 1.5 K/mcL (0.6-4.6); Mean Corpuscular HGB Conc 34.2 g/dL (31.6-35.5); Mean Corpuscular Hemoglobin 28.6 pg (28.0-33.3); Mean Corpuscular Volume 83.7 fL (83.0-100.0); Mean Platelet Volume 9.5 fL (9.4-12.4); Monocytes # 0.7 K/mcL (0.0-1.3); Monocytes % 7.4 %; Neutrophils # 6.4 K/mcL (1.6-8.9); Platelet Count 279 K/mcL (140-400); Red Blood Count 3.25 M/mcL (3.82-4.97); Red Cell Distribution Width 12.8 % (11.5-14.5); Segmented Neutrophils % 72.6 %
[2017-12-09] MEDS: *HR* Heparin 5,000 UNIT/ML VIAL SQ SCH ×2 (05:35→17:09)
[2017-12-09] MEDS: Furosemide 40 MG TABLET PO SCH ×2 (08:49→19:51)
[2017-12-09] MEDS: Diltiazem CD (24hr) 120 MG CAPSULE PO SCH (08:49)
[2017-12-09] MEDS: Aspirin Enteric Coated 81 MG Tablet PO SCH (08:49)
[2017-12-09] MEDS: FISH OIL PO SCH (08:52)
[2017-12-09] MEDS ORDERED: (Febuxostat [Uloric] 40 MG) PO SCH (09:00)
--- NOTE | 2017-12-09 11:31 | Nephrology Consult Note ---
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 Renal biopsy (not recent) showed IgA nephropathy with Nephrotic syndrome. BP controlled on Cardene drip. Short term memory loss; hypertensive encephalopathy versus TIA. Avoid nephrotoxins, I&O's. Will continue to monitor. History of Present Illness - Reason for Consult Chronic Kidney Disease - History of Present Illness Ms. Barnes is a 62 ear old well known patient to practice with progressively worsening CKD 4-5 without a steady state baseline creatinine, gfr 13-15. Renal biopsy (not recent) showed IgA nephropathy with Nephrotic syndrome. She was recently referred to [facility] transplant. [facility] contacted patient, told would need to lose 30 pounds before being considered to go through transplant evaluation process. She has had ongoing difficulties with controlling HTN and is on multiple medications. Ms. Barnes presented to ER yesterday with confusion noted by , although patient does not recollect. She states she knows her blood pressure has been elevated because it will not register on her home monitor and she has been having ringing in her ears which is an indicator to her that it is elevated. She has had two other similar episodes of confusion in past year. CT of head was unremarkable. Ms. Barnes was admitted to the ICU and is currently on Cardene drip, SBP 135-160. She is sitting on edge of bed and states she feels good. She denies any difficulty emptying bladder and states making good amount of urine. Renal US prelim- no hydronephrosis. Past Med Surg Social Fam HX - Past Medical History Medical history: CHF, hypertension, renal disease Psychiatric history: no psych history, other - Past Surgical History Surgical History: , cholecystectomy, hysterectomy, orthopedic, other - Social History Smoking Status: Former smoker Smokeless Tobacco Status: No Alcohol use: none Drug use: none - Family History Mother Family Member Ethnicity: Non- Living Status: Hx Family Cardiac Disorders: Yes Hx Family Respiratory Disorders: No Hx Family GI Disorders: No Hx Family Endocrine Disorder: Yes Hx Family Neuromuscular Disorders: No Hx Family Neurologic Disorders: No Hx Family HEENT Disorders: No Hx Family Autoimmune Disorders: No Father Living Status: Still Living Hx Family Cardiac Disorders: Yes Hx Family Respiratory Disorders: Yes Medications and Allergies Furosemide [Lasix] 40 mg PO BID 04/29/15 [History] Labetalol HCl [Trandate] 300 mg PO TID 04/29/15 [History] Potassium Chloride [Klor-Con 10] 10 meq PO DAILY 04/29/15 [History] Fish Oil/Dha/Epa [Fish Oil 1,200 mg Fish Oil] 1 each PO DAILY 10/13/16 [History] cloNIDine HCl [Clonidine HCl] 0.3 mg PO TID 10/13/16 [History] Calcitriol [Rocaltrol] 0.25 mcg PO DAILY 12/08/17 [History] Doxazosin Mesylate [Cardura] 8 mg PO DAILY 12/08/17 [History] Febuxostat [Uloric] 40 mg PO DAILY 12/08/17 [History] Losartan Potassium [Cozaar] 50 mg PO BID 12/08/17 [History] dilTIAZem HCl [Diltiazem 24Hr ER] 120 mg PO DAILY 12/08/17 [History] 3 Allergy/AdvReac Type Severity Reaction Status Date / Time amlodipine Allergy Nausea Verified 12/08/17 16:28 Hydralazine Allergy Nausea Verified 12/08/17 16:28 Review of Systems All Systems: reviewed and no additional remarkable complaints except as stated Exam - Vital Signs Vital signs: Initial Vital Signs Temp Pulse Resp BP Pulse Ox 98.6 F 70 18 241/110 97 12/08/17 16:28 12/08/17 16:28 12/08/17 16:28 12/08/17 16:28 12/08/17 16:28 Vital Signs - Last 8 Hours Temp Pulse Resp BP Pulse Ox 12/09/17 10:00 162/74 12/09/17 08:00 58 20 163/70 95 12/09/17 07:25 98.1 F 12/09/17 06:00 66 14 161/73 94 12/09/17 05:03 98.6 F 12/09/17 04:25 60 12/09/17 04:00 60 14 149/62 93 12/09/17 03:30 64 14 135/62 96 Intake and Output 12/08/17 12/09/17 12/09/17 23:59 07:59 15:59 Intake Total 223.6 / 223.6 410.4 / 410.4 Output Total 300 / 300 0 / 0 Balance -300 / -300 223.6 / 223.6 410.4 / 410.4 Intake: IV Fluids 23.6 / 23.6 50.4 / 50.4 Cardene Premix 40mg/200ml 40 mg 23.6 / 23.6 50.4 / 50.4 In 200 ml @ 5 MG/HR 25 mls/hr IVC Q8H CYNTHIA Rx#:[id number] Oral 200 / 200 360 / 360 Output: Urine 300 / 300 0 / 0 Other: Meal Breakfast Percent of Meal Consumed 100% # Voids 1 Weight 113.716 kg 113.398 kg Blood Glucose* 131 Patient Weight 12/09/17 23:59 Weight 113.398 kg Results - Lab Results 12/09/17 02:30 12/09/17 02:30 Most recent lab results Calcium 10.0 mg/dL (8.6-10.3) 12/09/17 02:30 Magnesium 2.3 mg/dL (1.6-2.6) 12/09/17 02:30 Consult Discharge Plan - Plan Referrals: Trung Bernabe DO [Primary Care Provider] -
[2017-12-09] MEDS ORDERED: niCARdipine 20 MG/200 ML MLS IVC SCH (12:00)
--- NOTE | 2017-12-09 14:27 | Internal Med Progress Note ---
<Quan Steinberg - Last Filed: 12/09/17 14:21> Date of Encounter: 12/09/17 Time of Encounter: 08:40 - Assessment and plan (1) Hypertensive emergency Current Visit: Yes Status: Acute Assessment and plan: Hypertensive emergency, resolved BP on arrival 241/110, Now 137/53 on home meds + Cardene drip The patient claims she's had difficult to control BP for 10 years She is currently on Cardizem, Losartan, Clonidine, Labetalol, Doxazosin, and Furosemide She did develop WESLY on CKD, and had neurological deficits which resolved We will continue to titrate down on Cardene drip Appreciate nephrology recommendations (2) Acute encephalopathy Current Visit: Yes Status: Resolved Assessment and plan: Likely secondary to Hypertensive emergency vs TIA (unlikely) Short-term memory loss, confusion for 10min x2 yesterday, has had before No arrythmia has been seen on EKG or on monitor CT head was unremarkable for acute ischemic changes TTE shows LVEF 60-65%. Normal LV chamber size, wall thickness and function. Mild left ventricular diastolic dysfunction. Normal right ventricular structure and function. No evidence of PFO with agitated saline contrast. Mild pulmonary hypertension. No significant valvular dysfunction. There is a trivial pericardial effusion present Carotid ultrasound is pending Neurology was consulted from the ED, appreciate recommendations Symptoms resolved spontaneously, have not recurred Check TSH and VDRL for other metabolic sources of encephalopathy (3) Acute kidney injury superimposed on CKD Current Visit: Yes Status: Acute Assessment and plan: WESLY on CKD Stage 3b-4 with nephrotic syndrome Serum Cr 3.21 (BL ~2), eGR 15 (BL ~25) Known history of IgA nephropathy by biopsy in past US Retroperitoneum shows echogenic renal parenchyma and areas of parenchymal thinning suggest medical renal disease Likely worsened by Hypertensive emergency We will continue to control HTN Nephrology consulted, appreciate recommendations (4) IgA nephropathy determined by biopsy of kidney Current Visit: No Status: Chronic Assessment and plan: As above (5) Anemia Current Visit: Yes Status: Acute Assessment and plan: Microcytic anemia likely secondary to CKD We will check iron studies for possible source of anemia Qualifiers: Anemia type: unspecified type Qualified Code(s): D64.9 - Anemia, unspecified (6) DVT prophylaxis Current Visit: No Status: Acute Assessment and plan: SQ Heparin - Subjective Interval history: The patient had no events overnight. She did remain relatively normotensive throughout the night, however she became hypertensive and in the morning. She is asymptomatic at this time. - Constitutional Vitals: Temp Pulse Resp BP Pulse Ox 98.9 F 70 18 137/53 93 12/09/17 12:11 12/09/17 14:00 12/09/17 14:00 12/09/17 14:00 12/09/17 14:00 General appearance: Present: A&O X 3, no acute distress, answers questions appropriately Exam: Gen.: Vitals noted. No acute distress. AAOx3 HEENT: PERRL/EOMI, oropharynx clear, Normocephalic, atraumatic Neck: Supple. No adenopathy. Cardiac: RRR, no murmur, +S1/S2 with questionable S3 vs splitting of S2 Pulmonary: CTA bilaterally, no wheezes, rales or rhonchi, equal chest expansion Abdomen: soft, nontender, BS noted, no guarding Back: Nontender throughout. MSK: ROM intact, no joint swelling noted Extremities: no BLE edema, nontender calf, no cyanosis or clubbing Neuro: A&Ox3, moves all extremities, no focal deficits Psych: Appropriate mood and behavior Internal Medicine: Result - Labs CBC & Chem 7: 12/09/17 02:30 12/09/17 02:30 Labs: Short CBC 12/09/17 Range/Units 02:30 WBC 8.8 (4.3-11.1) K/mcL Hgb 9.3 L (11.5-15.4) g/dL Hct 27.2 L (35.3-44.9) % Plt Count 279 (140-400) K/mcL Neutrophils # 6.4 (1.6-8.9) K/mcL BMP 12/09/17 02:30 Sodium 139 Potassium 4.0 Chloride 107 Carbon Dioxide 24 BUN 45 H Creatinine 3.21 H Glucose 124 H Calcium 10.0 - Impressions Impressions Retroperitoneum Ultrasound 12/09/17 00:01 IMPRESSION: No hydronephrosis. Echogenic renal parenchyma and areas of parenchymal thinning suggest medical renal disease. D/ / 12/09/2017 08:39:30 Any Drake MD / maryuri Interpreting Provider: Any Drake MD Echocardiogram 12/09/17 00:11 Impressions: LVEF 60-65%. Normal LV chamber size, wall thickness and function. Mild left ventricular diastolic dysfunction. Normal right ventricular structure and function. No evidence of PFO with agitated saline contrast. Mild pulmonary hypertension. No significant valvular dysfunction. There is a trivial pericardial effusion present. Left Ventricular Wall Motion: Rest Echo Findings All wall segments showed normal motion. Findings: Study Quality * Technically adequate exam. ECG Findings * Normal sinus rhythm. Left Ventricle * LVEF 60-65%. * Normal LV chamber size, wall thickness and function. * Mild left ventricular diastolic dysfunction. Right Ventricle * Normal right ventricular structure and function. Left Atrium * Moderately dilated left atrium. Right Atrium * Mildly dilated right atrium. Interatrial Septum * No evidence of PFO with agitated saline contrast. Aortic Valve * Aortic valve not well visualized. * No aortic regurgitation. * No aortic stenosis. Mitral Valve * Mild mitral annular calcification * Trace mitral regurgitation. * No mitral stenosis. Tricuspid Valve * Normal tricuspid valve structure and function. * Trace tricuspid regurgitation. * Mild pulmonary hypertension. Pulmonic Valve * Pulmonic valve is not well visualized. Aorta * Normally sized aortic root. IVC * Normal IVC dimensions and inspiratory collapse. Pulmonary Artery * Normal visualized portions of the main pulmonary artery. Pericardium * There is a trivial pericardial effusion present. Consult Discharge Plan - Plan Referrals: Trung Bernabe DO [Primary Care Provider] - <Gautam Leger - Last Filed: 12/09/17 14:49> Date of Encounter: 12/09/17 - Constitutional Vitals: Temp Pulse Resp BP Pulse Ox 98.9 F 70 18 137/53 93 12/09/17 12:11 12/09/17 14:00 12/09/17 14:00 12/09/17 14:00 12/09/17 14:00 Internal Medicine: Result - Labs CBC & Chem 7: 12/09/17 02:30 12/09/17 02:30 Labs: Short CBC 12/09/17 Range/Units 02:30 WBC 8.8 (4.3-11.1) K/mcL Hgb 9.3 L (11.5-15.4) g/dL Hct 27.2 L (35.3-44.9) % Plt Count 279 (140-400) K/mcL Neutrophils # 6.4 (1.6-8.9) K/mcL BMP 12/09/17 02:30 Sodium 139 Potassium 4.0 Chloride 107 Carbon Dioxide 24 BUN 45 H Creatinine 3.21 H Glucose 124 H Calcium 10.0 - Impressions Impressions Retroperitoneum Ultrasound 12/09/17 00:01 IMPRESSION: No hydronephrosis. Echogenic renal parenchyma and areas of parenchymal thinning suggest medical renal disease. D/ / 12/09/2017 08:39:30 Any Drake MD / maryuri Interpreting Provider: Any Drake MD Echocardiogram 12/09/17 00:11 Impressions: LVEF 60-65%. Normal LV chamber size, wall thickness and function. Mild left ventricular diastolic dysfunction. Normal right ventricular structure and function. No evidence of PFO with agitated saline contrast. Mild pulmonary hypertension. No significant valvular dysfunction. There is a trivial pericardial effusion present. Left Ventricular Wall Motion: Rest Echo Findings All wall segments showed normal motion. Findings: Study Quality * Technically adequate exam. ECG Findings * Normal sinus rhythm. Left Ventricle * LVEF 60-65%. * Normal LV chamber size, wall thickness and function. * Mild left ventricular diastolic dysfunction. Right Ventricle * Normal right ventricular structure and function. Left Atrium * Moderately dilated left atrium. Right Atrium * Mildly dilated right atrium. Interatrial Septum * No evidence of PFO with agitated saline contrast. Aortic Valve * Aortic valve not well visualized. * No aortic regurgitation. * No aortic stenosis. Mitral Valve * Mild mitral annular calcification * Trace mitral regurgitation. * No mitral stenosis. Tricuspid Valve * Normal tricuspid valve structure and function. * Trace tricuspid regurgitation. * Mild pulmonary hypertension. Pulmonic Valve * Pulmonic valve is not well visualized. Aorta * Normally sized aortic root. IVC * Normal IVC dimensions and inspiratory collapse. Pulmonary Artery * Normal visualized portions of the main pulmonary artery. Pericardium * There is a trivial pericardial effusion present. - Attending Attestation I examined this patient and my medical decision-making was reviewed with the Resident Physician. I agree with the documented findings, disposition and treatment plan as described except to the extent set forth below Seen and examined with the residents at the bedside His progress note reflects our plan of care
--- NOTE | 2017-12-09 18:21 | Neurology - Consult Note ---
Date of Encounter: 12/09/17 Time of Encounter: 14:30 Assessment and Plan (1) Acute encephalopathy Current Visit: Yes Status: Resolved I agree with her symptoms are likely related to acute encephalopathy secondary to medical conditions especially elevated BP and acute on chronic renal insufficiency. The symptoms are short lasting and lack focality or unilateral preference and are global in nature. At the time of this writing her MRI of brain was completed and showed no acute intracranial abnormality. her echocardiography was showed no significant abnormality Therefore there is no target to intervene but i feel that a baby aspirin would be of some value since this is her at least third episode within the last one or two years. Getting carotid artery duplex can also be helpful if not already done. please continue medical and supportive care. Total time spent on this case is approximately 50 minutes History of Present Illness Chief complaint: confusion and amnesia HPI: Ms. Barnes is a 62 year old female with PMH significant for HTN, CKD, history of acute on chronic renal failure, history of glomerulonephritis who developed episodes of confusion and amnesia. Patient states that developed, in the last 1- 2 days, few episodes of short lasting confusion and forgetfulness and that she has had similar episodes in the past during last year. It has been thought that these episodes were related to her BP being high. she states that these episodes are not lasting very long and probabaly last than 10 minutes she would be back to normal but during the episodes she was confused and did not remember what was going on. Denies other focal neurological deficits. She was found to have elevated blood pressure and is being treated for that. Initial CT of head showed no acute intracranial abnormality. Currently the patient feels fine and denies any discomforts. She has not been taking aspirin for such spells and as mentioned above, the spells were thought to be related to her blood pressure being high. Past Med Surg Social Fam HX - Past Medical History Medical history: CHF, hypertension, renal disease Psychiatric history: no psych history, other - Past Surgical History Surgical History: , cholecystectomy, hysterectomy, orthopedic, other - Social History Smoking Status: Former smoker Smokeless Tobacco Status: No Alcohol use: none Drug use: none - Family History Mother Family Member Ethnicity: Non- Living Status: Hx Family Cardiac Disorders: Yes Hx Family Respiratory Disorders: No Hx Family GI Disorders: No Hx Family Endocrine Disorder: Yes Hx Family Neuromuscular Disorders: No Hx Family Neurologic Disorders: No Hx Family HEENT Disorders: No Hx Family Autoimmune Disorders: No Father Living Status: Still Living Hx Family Cardiac Disorders: Yes Hx Family Respiratory Disorders: Yes Medications and Allergies Furosemide [Lasix] 40 mg PO BID 04/29/15 [History] Labetalol HCl [Trandate] 300 mg PO TID 04/29/15 [History] Potassium Chloride [Klor-Con 10] 10 meq PO DAILY 04/29/15 [History] Fish Oil/Dha/Epa [Fish Oil 1,200 mg Fish Oil] 1 each PO DAILY 10/13/16 [History] cloNIDine HCl [Clonidine HCl] 0.3 mg PO TID 10/13/16 [History] Calcitriol [Rocaltrol] 0.25 mcg PO DAILY 12/08/17 [History] Doxazosin Mesylate [Cardura] 8 mg PO DAILY 12/08/17 [History] Febuxostat [Uloric] 40 mg PO DAILY 12/08/17 [History] Losartan Potassium [Cozaar] 50 mg PO BID 12/08/17 [History] dilTIAZem HCl [Diltiazem 24Hr ER] 120 mg PO DAILY 12/08/17 [History] 3 Allergy/AdvReac Type Severity Reaction Status Date / Time amlodipine Allergy Nausea Verified 12/08/17 16:28 Hydralazine Allergy Nausea Verified 12/08/17 16:28 All Systems: The remainder of the systems were reviewed and are negative Physical Examination - Vital Signs Vital Signs: Initial Vital Signs Temp Pulse Resp BP Pulse Ox 98.6 F 70 18 241/110 97 12/08/17 16:28 12/08/17 16:28 12/08/17 16:28 12/08/17 16:28 12/08/17 16:28 - Constitutional General appearance: comfortable - Neurologic Detailed motor examination: full strength in all major muscle groups Motor examination - right side: 5/5: deltoids, biceps, triceps, wrist flexion, wrist extension, carpentry professional, hip flexors, tibialis Anterior, quadriceps, toe extension (EHL), plantarflexion Motor examination - left side: 5/5: deltoids, biceps, triceps, wrist flexion, wrist extension, hip flexors, carpentry professional, quadriceps, tibialis Anterior, toe extension (EHL), plantarflexion Detailed sensory examination: intact Reflex and gait examination: intact Reflexes: Biceps: 2+, Triceps: 2+, Brachioradialis: 2+, Patella: 2+, Achilles: 2 + Mental Status Examination: awake, alert, oriented to person, oriented to place, oriented to time, follows commands appropriately, answers questions appropriately, no agnosia, no aphasia, no aproxia Cranial nerve examination: PERRL, EOMI, visual hernández intact, corneal reflexes brisk symmetrically, sensory to face intact, mastication intact, no facial asymmetry is present, no dysarthria, hearing is intact symmetrically, soft palate elevates bilaterally upon phonation, gag reflex intact, flexes SCM and trapezius muscles symmetrically with full power, tongue protrudes midline, no atrophy or facial fasiculations present Cerebellar examination: no dysmetria, performs finger to nose and heel to thomason symmetrically without ataxia, no gait ataxia, no truncal ataxia, no difficulty with rapid alternating movements Results - Laboratory Findings CBC and BMP: 12/09/17 02:30 12/09/17 02:30 Abnormal lab findings: Abnormal lab results RBC 3.25 M/mcL (3.82-4.97) L 12/09/17 02:30 Hgb 9.3 g/dL (11.5-15.4) L 12/09/17 02:30 Hct 27.2 % (35.3-44.9) L 12/09/17 02:30 BUN 45 mg/dL (8-23) H 12/09/17 02:30 Creatinine 3.21 mg/dL (0.60-1.20) H 12/09/17 02:30 Est GFR ( Amer) 18 (> 60) L 12/09/17 02:30 Est GFR (Non-Af Amer) 15 (> 60) L 12/09/17 02:30 Glucose 124 mg/dL (70-105) H 12/09/17 02:30 Calculated Osmolality 301 (280-300) H 12/09/17 02:30 Alkaline Phosphatase 178 Units/L (34-104) H 12/08/17 17:43 Globulin 3.6 g/dL (2.4-3.5) H 12/08/17 17:43 Ur Specific [place] 1.007 (1.010-1.025) L 12/08/17 19:19 Urine Protein >=300 mg/dL (Neg-Trace) H 12/08/17 19:19 Urine Blood Moderate (Negative) H 12/08/17 19:19 Urine Microscopic RBC 5-15 per hpf (0-3) H 12/08/17 19:19 Urine Microscopic WBC 3-5 per hpf (0-3) H 12/08/17 19:19 Ur Squamous Epith Cells Moderate per lpf (None-Few) H 12/08/17 19:19 - Diagnostic Findings Additional findings: EV/EV echo with saline Impressions: LVEF 60-65%. Normal LV chamber size, wall thickness and function. Mild left ventricular diastolic dysfunction. Normal right ventricular structure and function. No evidence of PFO with agitated saline contrast. Mild pulmonary hypertension. No significant valvular dysfunction. There is a trivial pericardial effusion present. MR/MR head/brain wo con IMPRESSION: 1. No acute intracranial abnormality. Specifically, no acute infarction. 2. Sequela of mild chronic microvascular ischemic changes. Consult Discharge Plan - Plan Referrals: Trung Bernabe DO [Primary Care Provider] -
[2017-12-10 03:18] LABS: Basophils % 0.2 %; Eosinophils # 0.3 K/mcL (0.0-0.6); Hematocrit 26.1 % (35.3-44.9); Immature Granulocytes % 0.8 % (0-4); Lymphocytes # 1.6 K/mcL (0.6-4.6); Mean Platelet Volume 9.1 fL (9.4-12.4); Monocytes # 0.6 K/mcL (0.0-1.3); Monocytes % 7.4 %; Neutrophils # 5.9 K/mcL (1.6-8.9); Nucleated Red Blood Cells 0.6 /100 WBC (0); Platelet Count 258 K/mcL (140-400); Red Blood Count 3.07 M/mcL (3.82-4.97); Red Cell Distribution Width 12.8 % (11.5-14.5); Segmented Neutrophils % 69.6 %
[2017-12-10 03:20] LABS: Hemoglobin 8.6 g/dL (11.5-15.4)
[2017-12-10 03:38] LABS: % Iron Saturation 21 % (15-50); Calcium 9.9 mg/dL (8.6-10.3); Iron 63 mcg/dL (50-170); Potassium 4.1 mEq/L (3.5-5.1); Transferrin 215 mg/dL (203-362)
[2017-12-10] MEDS: niCARdipine 20 MG/200 ML MLS IVC SCH ×2 (04:22→10:22)
[2017-12-10] MEDS: *HR* Heparin 5,000 UNIT/ML VIAL SQ SCH ×2 (05:59→16:58)
[2017-12-10] MEDS: Diltiazem CD (24hr) 120 MG CAPSULE PO SCH (08:00)
[2017-12-10] MEDS: cloNIDine HCl 0.1 MG TABLET PO SCH ×3 (08:01→20:19)
[2017-12-10] MEDS: Furosemide 40 MG TABLET PO SCH ×2 (08:01→20:19)
[2017-12-10] MEDS: Aspirin Enteric Coated 81 MG Tablet PO SCH (08:02)
[2017-12-10] MEDS: (Febuxostat [Uloric] 40 MG) PO SCH (08:03)
[2017-12-10] MEDS: FISH OIL PO SCH (08:04)
--- NOTE | 2017-12-10 08:43 | Internal Med Progress Note ---
<Quan Steinberg - Last Filed: 12/10/17 15:54> Date of Encounter: 12/10/17 Time of Encounter: 07:40 - Assessment and plan (1) Hypertensive emergency Current Visit: Yes Status: Acute Assessment and plan: Hypertensive emergency, resolved BP on arrival 241/110, Now 176/86 on home meds, Cardene Drip discontinued The patient claims she's had difficult to control BP for 10 years She is currently on Cardizem, Losartan, Clonidine, Labetalol, Doxazosin, and Furosemide She did develop WESLY on CKD, and had neurological deficits which resolved Cardene drip is discontinued, we have resumed all home meds Appreciate nephrology recommendations (2) Acute encephalopathy Current Visit: Yes Status: Resolved Assessment and plan: Likely secondary to Hypertensive emergency vs TIA (unlikely) Short-term memory loss, confusion for 10min x2 on day of admission, has had before No arrythmia has been seen on EKG or on monitor CT head was unremarkable for acute ischemic changes TTE shows LVEF 60-65%. Normal LV chamber size, wall thickness and function. Mild left ventricular diastolic dysfunction. Normal right ventricular structure and function. No evidence of PFO with agitated saline contrast. Mild pulmonary hypertension. No significant valvular dysfunction. There is a trivial pericardial effusion present Carotid ultrasound is pending, preliminary report b/l 60-70% stenosis TSH is 5.28, VDRL is pending MRI brain shows no acute infarct and chronic mild microvasculature ischemic changes Symptoms resolved spontaneously, have not recurred Neurology was consulted from the ED, believes symptoms of hypertensive crisis Recommend continued ASA + Statin (3) Acute kidney injury superimposed on CKD Current Visit: Yes Status: Acute Assessment and plan: WESLY on CKD Stage 3b-4 with nephrotic syndrome, worsening Serum Cr 3.53 (BL ~2), eGR 13 (BL ~25) Known history of IgA nephropathy by biopsy in past US Retroperitoneum shows echogenic renal parenchyma and areas of parenchymal thinning suggest medical renal disease Likely worsened by Hypertensive emergency We will continue to control HTN Nephrology consulted, appreciate recommendations (4) IgA nephropathy determined by biopsy of kidney Current Visit: No Status: Chronic Assessment and plan: As above (5) Anemia Current Visit: Yes Status: Acute Assessment and plan: Microcytic anemia likely secondary to CKD Fe 63, %Saturation 21, Transferrin 215 Qualifiers: Anemia type: due to chronic kidney disease Chronic kidney disease stage: stage 5, not on chronic dialysis Qualified Code(s): N18.5 - Chronic kidney disease, stage 5; D63.1 - Anemia in chronic kidney disease; D63.1 - Anemia in chronic kidney disease (6) DVT prophylaxis Current Visit: No Status: Acute Assessment and plan: SQ Heparin - Subjective Interval history: The patient had no events overnight. She did remain relatively normotensive throughout the night, however she became hypertensive and in the morning. She is asymptomatic at this time. She does say that she typically has high levels of anxiety throughout the day, this is likely due to and is currently in her life. Additionally, the patient has been off the Cardene drip for approximately 12 hours at this time without incident. - Constitutional Vitals: Temp Pulse Resp BP Pulse Ox 98.2 F 58 16 176/86 96 12/10/17 07:10 12/10/17 08:00 12/10/17 08:00 12/10/17 08:00 12/10/17 08:00 General appearance: Present: A&O X 3, no acute distress, answers questions appropriately Exam: Gen.: Vitals noted. No acute distress. AAOx3 HEENT: Normocephalic, atraumatic Neck: Supple. No adenopathy. Cardiac: RRR, no murmur, +S1/S2 with questionable S3 vs splitting of S2 Pulmonary: CTA bilaterally, no wheezes, rales or rhonchi, equal chest expansion Abdomen: soft, nontender, BS noted, no guarding Back: Nontender throughout. MSK: ROM intact, no joint swelling noted Extremities: no BLE edema, nontender calf, no cyanosis or clubbing Neuro: A&Ox3, moves all extremities, no focal deficits Psych: Appropriate mood and behavior Internal Medicine: Result - Labs CBC & Chem 7: 12/10/17 02:54 12/10/17 02:54 Labs: Short CBC 12/10/17 Range/Units 02:54 WBC 8.4 (4.3-11.1) K/mcL Hgb 8.6 L (11.5-15.4) g/dL Hct 26.1 L (35.3-44.9) % Plt Count 258 (140-400) K/mcL Neutrophils # 5.9 (1.6-8.9) K/mcL BMP 03/17/18 02:54 Sodium 137 Potassium 4.1 Chloride 105 Carbon Dioxide 23 BUN 51 H Creatinine 3.53 H Glucose 117 H Calcium 9.9 - Impressions Impressions Retroperitoneum Ultrasound 12/09/17 00:01 IMPRESSION: No hydronephrosis. Echogenic renal parenchyma and areas of parenchymal thinning suggest medical renal disease. D/ / 12/09/2017 08:39:30 Any Drake MD / [email or web address] Interpreting Provider: Any Drake MD Echocardiogram 12/09/17 00:11 Impressions: LVEF 60-65%. Normal LV chamber size, wall thickness and function. Mild left ventricular diastolic dysfunction. Normal right ventricular structure and function. No evidence of PFO with agitated saline contrast. Mild pulmonary hypertension. No significant valvular dysfunction. There is a trivial pericardial effusion present. Left Ventricular Wall Motion: Rest Echo Findings All wall segments showed normal motion. Findings: Study Quality * Technically adequate exam. ECG Findings * Normal sinus rhythm. Left Ventricle * LVEF 60-65%. * Normal LV chamber size, wall thickness and function. * Mild left ventricular diastolic dysfunction. Right Ventricle * Normal right ventricular structure and function. Left Atrium * Moderately dilated left atrium. Right Atrium * Mildly dilated right atrium. Interatrial Septum * No evidence of PFO with agitated saline contrast. Aortic Valve * Aortic valve not well visualized. * No aortic regurgitation. * No aortic stenosis. Mitral Valve * Mild mitral annular calcification * Trace mitral regurgitation. * No mitral stenosis. Tricuspid Valve * Normal tricuspid valve structure and function. * Trace tricuspid regurgitation. * Mild pulmonary hypertension. Pulmonic Valve * Pulmonic valve is not well visualized. Aorta * Normally sized aortic root. IVC * Normal IVC dimensions and inspiratory collapse. Pulmonary Artery * Normal visualized portions of the main pulmonary artery. Pericardium * There is a trivial pericardial effusion present. Brain MRI 12/09/17 14:16 IMPRESSION: 1. No acute intracranial abnormality. Specifically, no acute infarction. 2. Sequela of mild chronic microvascular ischemic changes. D/ / Joan Morales MD / Joan Morales MD Interpreting Provider: Joan Morales MD Consult Discharge Plan - Plan Referrals: Trung Bernabe DO [Primary Care Provider] - <Gautam Leger T - Last Filed: 12/10/17 18:21> Date of Encounter: 12/10/17 - Constitutional Vitals: Temp Pulse Resp BP Pulse Ox 97.7 F 66 18 139/63 94 12/10/17 15:31 12/10/17 15:31 12/10/17 15:31 12/10/17 17:00 12/10/17 15:14 Internal Medicine: Result - Labs CBC & Chem 7: 12/10/17 02:54 12/10/17 02:54 Labs: Short CBC 12/10/17 Range/Units 02:54 WBC 8.4 (4.3-11.1) K/mcL Hgb 8.6 L (11.5-15.4) g/dL Hct 26.1 L (35.3-44.9) % Plt Count 258 (140-400) K/mcL Neutrophils # 5.9 (1.6-8.9) K/mcL BMP 12/10/17 02:54 Sodium 137 Potassium 4.1 Chloride 105 Carbon Dioxide 23 BUN 51 H Creatinine 3.53 H Glucose 117 H Calcium 9.9 - Attending Attestation I examined this patient and my medical decision-making was reviewed with the Resident Physician. I agree with the documented findings, disposition and treatment plan as described except to the extent set forth below.
[2017-12-10] MEDS: niCARdipine 20 MG CAPSULE PO SCH ×3 (08:59→21:32)
--- NOTE | 2017-12-10 09:24 | Nephrology Progress Note ---
Date of Encounter: 12/10/17 Time of Encounter: 08:30 - Assessment and Plan (1) IgA nephropathy Current Visit: No Status: Chronic Progressively worsening CKD 4-5 without a steady state baseline creatinine, gfr 13-15. Renal biopsy (not recent) showed IgA nephropathy with Nephrotic syndrome. Renal fct stable, creat 3.53, gfr 13. No documented urine output. Cardene drip discontinued last evening. Will start on PO Cardene and stop Cardizem PO. Short term memory loss; hypertensive encephalopathy versus TIA. Avoid nephrotoxins, I&O's. Will continue to monitor. Subjective Interval history: Laying in bed, HOB elevated. SBP 180's. States feels good. Would like to go home. No documented urine output, patient states voiding large amounts. Objective - Vital Signs Vital signs: Vital Signs Temp Pulse Resp BP Pulse Ox 12/10/17 09:00 70 18 147/65 98 12/10/17 08:00 58 16 176/86 96 12/10/17 07:10 98.2 F 12/10/17 07:00 58 18 152/79 96 12/10/17 06:02 62 18 160/75 95 12/10/17 05:30 60 16 155/72 98 12/10/17 04:15 61 18 142/68 95 12/10/17 03:30 55 16 146/63 96 12/10/17 02:15 58 18 144/59 93 12/10/17 01:00 58 17 139/59 96 12/10/17 00:30 98.2 F 55 16 151/59 96 12/09/17 23:15 61 16 152/68 96 12/09/17 22:00 57 14 147/61 95 12/09/17 21:00 59 16 145/67 94 12/09/17 20:30 56 18 139/52 95 12/09/17 20:11 98.7 F 12/09/17 19:30 64 20 160/71 97 12/09/17 18:00 66 18 130/60 98 12/09/17 15:00 68 12/09/17 14:00 70 18 137/53 93 12/09/17 12:11 98.9 F 12/09/17 12:00 66 20 149/59 94 12/09/17 11:00 65 20 145/67 03/16/18 10:00 162/74 Intake and Output 12/09/17 12/10/17 12/10/17 23:59 07:59 15:59 Intake Total 565 / 565 270 / 270 360 / 360 Balance 565 / 565 270 / 270 360 / 360 Intake: IV Fluids 125 / 125 Cardene Premix 20mg/200ml 20 mg 125 / 125 In 200 ml @ 5 MG/HR 50 mls/hr IVC Q8H CYNTHIA Rx#:[id number] Oral 440 / 440 270 / 270 360 / 360 Other: Meal Breakfast Percent of Meal Consumed 100% # Voids 1 Weight 113.4 kg 113.4 kg Patient Weight 12/10/17 23:59 Weight 113.4 kg - General Appearance General appearance: Present: well-developed, well-nourished, appears started age EENT: Present: mucous membranes moist Neck: Present: no JVD Respiratory: Present: clear Cardiology: Present: no edema, regular rate, regular rhythm Gastrointestinal: Present: normoactive bowel sounds, no tenderness Integumentary: Present: warm and dry Neurologic: Present: alert and oriented x3 Psychiatric: Present: mood/affect appropriate, cooperative - Lab 12/10/17 02:54 12/10/17 02:54 Most recent lab results Calcium 9.9 mg/dL (8.6-10.3) 12/10/17 02:54 Magnesium 2.3 mg/dL (1.6-2.6) 12/09/17 02:30 Consult Discharge Plan - Plan Referrals: Trung Bernabe DO [Primary Care Provider] -
--- NOTE | 2017-12-10 14:53 | Neurology Progress Note ---
Date of Encounter: 12/10/17 Time of Encounter: 14:51 Assessment and Plan (1) Acute encephalopathy Current Visit: Yes Status: Resolved I agree with her symptoms are likely related to acute encephalopathy secondary to medical conditions especially elevated BP and acute on chronic renal insufficiency. The symptoms are short lasting and lack focality or unilateral preference and are global in nature. At the time of this writing her MRI of brain was completed and showed no acute intracranial abnormality. her echocardiography was showed no significant abnormality. However, carotid artery duplex showed 60-79% bilateral proximal ICA stenosis, this could be overestimation with carotid duplex but would like to obtain MRA of neck without contrast to assess more accurately what degree of the stenosis. Please continue medical and supportive care. Subjective Principal diagnosis: TIA Interval history: Patient seen and examined. She is feeling fine. MRI of brain reported no acute intracranial abnormality. Carotid artery duplex showed 60-79% bilateral proximal ICA stenosis Objective - Constitutional Vitals: Temp Pulse Resp BP Pulse Ox 97.5 F L 65 20 146/63 95 12/10/17 12:11 12/10/17 13:15 12/10/17 13:15 12/10/17 13:59 12/10/17 13:15 - Neurological Exam Motor Examination: Present: full strength in all major muscle groups Motor examination - left side: 5/5: deltoids, biceps, triceps, wrist flexion, wrist extension, hip flexors, safety associate, quadriceps, tibialis Anterior, toe extension (EHL), plantarflexion Sensation intact: Present: intact Reflex and gait examination: intact Mental Status Examination: Present: awake, alert, oriented to person, oriented to place, oriented to time, follows commands appropriately, answers questions appropriately, no agnosia, no aphasia, no aproxia Cranial nerve examination: Present: PERRL, EOMI, visual hernández intact, corneal reflexes brisk symmetrically, sensory to face intact, mastication intact, no facial asymmetry is present, no dysarthria, hearing is intact symmetrically, soft palate elevates bilaterally upon phonation, gag reflex intact, flexes SCM and trapezius muscles symmetrically with full power, tongue protrudes midline, no atrophy or facial fasiculations present Cerebellar examination: Present: no dysmetria, performs finger to nose and heel to thomason symmetrically without ataxia, no gait ataxia, no truncal ataxia, no difficulty with rapid alternating movements Results - Laboratory Findings CBC and BMP: 12/10/17 02:54 12/10/17 02:54 Abnormal lab findings: Abnormal lab results RBC 3.07 M/mcL (3.82-4.97) L 12/10/17 02:54 Hgb 8.6 g/dL (11.5-15.4) L 12/10/17 02:54 Hct 26.1 % (35.3-44.9) L 12/10/17 02:54 MPV 9.1 fL (9.4-12.4) L 12/10/17 02:54 Nucleated RBCs/100 WBC 0.6 /100 WBC (0) H 12/10/17 02:54 BUN 51 mg/dL (8-23) H 12/10/17 02:54 Creatinine 3.53 mg/dL (0.60-1.20) H 12/10/17 02:54 Est GFR ( Amer) 16 (> 60) L 12/10/17 02:54 Est GFR (Non-Af Amer) 13 (> 60) L 12/10/17 02:54 Glucose 117 mg/dL (70-105) H 12/10/17 02:54 POC Glucose 131 (58-89) H 12/09/17 02:11 Alkaline Phosphatase 178 Units/L (34-104) H 12/08/17 17:43 Globulin 3.6 g/dL (2.4-3.5) H 12/08/17 17:43 Ur Specific [place] 1.007 (1.010-1.025) L 12/08/17 19:19 Urine Protein >=300 mg/dL (Neg-Trace) H 12/08/17 19:19 Urine Blood Moderate (Negative) H 12/08/17 19:19 Urine Microscopic RBC 5-15 per hpf (0-3) H 12/08/17 19:19 Urine Microscopic WBC 3-5 per hpf (0-3) H 12/08/17 19:19 Ur Squamous Epith Cells Moderate per lpf (None-Few) H 12/08/17 19:19 - Diagnostic Findings Additional findings: Impressions: Bilateral 60-79$ stenosis of the proximal ICA The left side demonstrates velocities over 300 cm/sec Recommend Surgical evaluation and possible carotid arteriogram Consult Discharge Plan - Plan Referrals: Trung Bernabe DO [Primary Care Provider] -
[2017-12-11 03:31] LABS: Basophils % 0.3 %; Eosinophils # 0.3 K/mcL (0.0-0.6); Eosinophils % 3.7 %; Hematocrit 25.6 % (35.3-44.9); Hemoglobin 8.6 g/dL (11.5-15.4); Immature Granulocytes % 1.2 % (0-4); Lymphocytes # 1.7 K/mcL (0.6-4.6); Lymphocytes % 19.5 %; Mean Corpuscular HGB Conc 33.6 g/dL (31.6-35.5); Mean Corpuscular Hemoglobin 28.6 pg (28.0-33.3); Mean Platelet Volume 9.1 fL (9.4-12.4); Monocytes # 0.7 K/mcL (0.0-1.3); Monocytes % 7.9 %; Neutrophils # 5.8 K/mcL (1.6-8.9); Nucleated Red Blood Cells 0.2 /100 WBC (0); Platelet Count 245 K/mcL (140-400); Red Blood Count 3.01 M/mcL (3.82-4.97); Red Cell Distribution Width 12.8 % (11.5-14.5); Segmented Neutrophils % 67.4 %
[2017-12-11 03:55] LABS: Calcium 9.8 mg/dL (8.6-10.3); Potassium 4.1 mEq/L (3.5-5.1)
[2017-12-11] MEDS: *HR* Heparin 5,000 UNIT/ML VIAL SQ SCH (06:43)
[2017-12-11] MEDS: niCARdipine 20 MG CAPSULE PO SCH (07:35)
[2017-12-11] MEDS: cloNIDine HCl 0.1 MG TABLET PO SCH (07:35)
[2017-12-11] MEDS: Furosemide 40 MG TABLET PO SCH (07:36)
[2017-12-11] MEDS: (Febuxostat [Uloric] 40 MG) PO SCH (07:36)
[2017-12-11] MEDS: Aspirin Enteric Coated 81 MG Tablet PO SCH (07:36)
[2017-12-11] MEDS: FISH OIL PO SCH (07:37)
--- NOTE | 2017-12-11 08:00 | Nephrology Progress Note ---
Date of Encounter: 12/11/17 Time of Encounter: 07:45 - Assessment and Plan (1) IgA nephropathy Current Visit: No Status: Chronic Progressively worsening CKD 4-5 without a steady state baseline creatinine, gfr 13-15. Renal biopsy (not recent) showed IgA nephropathy with Nephrotic syndrome. Renal fct stable, creat 3.59, gfr 13. No documented urine output. Started on PO Cardene. BP improved. Short term memory loss; hypertensive encephalopathy versus TIA. Avoid nephrotoxins, I&O's. Will continue to monitor. Subjective Principal diagnosis: TIA Interval history: Sitting up in bed. States feels good, denies further incident of memory lapse. SBP high 130-140 since starting Cardene PO. Objective - Vital Signs Vital signs: Vital Signs Temp Pulse Resp BP Pulse Ox 12/11/17 07:00 97.6 F 68 18 170/73 94 12/11/17 05:28 67 16 93 12/11/17 03:15 97.7 F 65 16 139/66 93 12/10/17 23:45 97.9 F 65 16 130/51 92 12/10/17 23:42 97.9 F 64 16 130/51 12/10/17 21:45 62 18 96 12/10/17 19:30 98.1 F 63 18 147/67 96 12/10/17 17:00 139/63 12/10/17 15:31 97.7 F 66 18 12/10/17 15:14 97.7 F 64 18 167/72 94 12/10/17 15:00 98.1 F 61 17 173/75 94 12/10/17 13:59 146/63 12/10/17 13:30 164/76 12/10/17 13:15 65 20 167/67 95 12/10/17 13:00 65 18 169/70 98 12/10/17 12:11 97.5 F L 12/10/17 11:00 64 20 140/66 96 12/10/17 10:00 64 18 142/67 97 12/10/17 09:00 70 18 147/65 98 12/10/17 08:00 58 16 176/86 96 Intake and Output 12/10/17 12/10/17 12/11/17 15:59 23:59 07:59 Intake Total 1520 / 1520 240 / 240 Output Total 700 / 700 800 / 800 175 / 175 Balance 820 / 820 -560 / -560 -175 / -175 Intake: Oral 1520 / 1520 240 / 240 Output: Urine 700 / 700 800 / 800 Catheter 175 / 175 Other: Meal Lunch Dinner Percent of Meal Consumed 100% 100% Stool Size Small Stool Consistency soft Stool Color Brown # Voids 1 # Bowel Movements 1 Weight 113.4 kg 114 kg Patient Weight 12/11/17 23:59 Weight 114 kg - General Appearance General appearance: Present: well-developed, well-nourished, appears started age EENT: Present: mucous membranes moist Neck: Present: no JVD Respiratory: Present: clear Cardiology: Present: no edema, regular rate, regular rhythm Gastrointestinal: Present: normoactive bowel sounds, no tenderness Integumentary: Present: warm and dry Neurologic: Present: alert and oriented x3 - Lab 12/11/17 03:09 12/11/17 03:09 Most recent lab results Calcium 9.8 mg/dL (8.6-10.3) 12/11/17 03:09 Magnesium 2.3 mg/dL (1.6-2.6) 12/09/17 02:30 Consult Discharge Plan - Plan Referrals: Trung Bernabe DO [Primary Care Provider] -
--- NOTE | 2017-12-11 09:05 | Discharge Summary ---
<Quan Steinberg - Last Filed: 12/11/17 11:08> - NOTES TO OUTPATIENT PROVIDER Notes to Outpatient Provider: The patient has had increasingly difficult to control HTN for some time. She required Cardene drip to stabilize, and was transitioned to PO cardene per nephrology. This seems to control her BP well. She also has a growing anemia, which is likely secondary to chronic disease, however I have ordered an outpatient CBC to be completed prior to follow-up. Orders not resulted at time of discharge: Pending orders 12/10/17 02:54 VDRL AM 0400 Date of Encounter: 12/11/17 Time of Encounter: 07:35 - Discharge Diagnosis (1) Hypertensive emergency Priority: Primary Status: Acute (2) Acute encephalopathy Priority: Primary Status: Resolved (3) Acute kidney injury superimposed on CKD Priority: Secondary Status: Acute (4) IgA nephropathy determined by biopsy of kidney Priority: Secondary Status: Chronic (5) Anemia Priority: Secondary Status: Acute Qualifiers: Anemia type: due to chronic kidney disease Chronic kidney disease stage: stage 5, not on chronic dialysis Qualified Code(s): N18.5 - Chronic kidney disease, stage 5; D63.1 - Anemia in chronic kidney disease; D63.1 - Anemia in chronic kidney disease Hospital course: Ms. 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 This has happened previously about 1 month ago and about 1 year ago. Again the confusion last for approximately 5-10 minutes at which time the patient becomes lightheaded, confused, unable to speak. Following this , the patient resolves without any symptoms whatsoever. When she arrived at the ED the symptoms are not resolved, however it was determined that she had a blood pressure that was extremely elevated and in the hypertensive emergency range. The patient has apparently had difficult to control hypertension recently. She was started on a nicardipine drip, which was successful in getting her blood pressure down. 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 The patient was monitored by both neurology and nephrology. Neurology indicated that they think the hypertensive emergency is likely the source of this patient's episode. They do recommend the addition of a statin and baby aspirin daily to her medication regimen. The patient did develop worsening a CKD during Her Stay Here Which Was Followed by Nephrology. They Made Suggestions regarding Her Medications, and Switched Her from Cardizem to Nicardipine by Mouth. The Patient Seemed to Do Better on This Regimen with Blood Pressures That Remained in the 130s to 140s. She Is Having No More Symptoms, and She Says That She Is Feeling Good Overall. She will be discharged from the hospital to home, and will require follow-up within 3-5 status by primary care and by nephrology. Discharge discussed with: patient, nurse, work and family life consultant - Time Spent with Patient Total time spent providing and/or coordinating discharge services: - Discharge Medications Prescriptions: Aspirin Enteric Coated [Aspirin EC] 81 mg PO DAILY #30 tablet. Atorvastatin [Lipitor] 40 mg PO HS #30 tablet niCARdipine [Cardene] 20 mg PO TID #90 capsule Home Medications: Furosemide [Lasix] 40 mg PO BID 04/29/15 [History] Labetalol HCl [Trandate] 300 mg PO TID 04/29/15 [History] Potassium Chloride [Klor-Con 10] 10 meq PO DAILY 04/29/15 [History] Fish Oil/Dha/Epa [Fish Oil 1,200 mg Fish Oil] 1 each PO DAILY 10/13/16 [History] cloNIDine HCl [Clonidine HCl] 0.3 mg PO TID 10/13/16 [History] Calcitriol [Rocaltrol] 0.25 mcg PO DAILY 12/08/17 [History] Doxazosin Mesylate [Cardura] 8 mg PO DAILY 12/08/17 [History] Febuxostat [Uloric] 40 mg PO DAILY 12/08/17 [History] Losartan Potassium [Cozaar] 50 mg PO BID 12/08/17 [History] Aspirin Enteric Coated [Aspirin EC] 81 mg PO DAILY #30 tablet. 12/11/17 [Rx] Atorvastatin [Lipitor] 40 mg PO HS #30 tablet 12/11/17 [Rx] niCARdipine [Cardene] 20 mg PO TID #90 capsule 12/11/17 [Rx] Allergies/Adverse Reactions: 3 Allergy/AdvReac Type Severity Reaction Status Date / Time amlodipine Allergy Nausea Verified 12/08/17 16:28 Hydralazine Allergy Nausea Verified 12/08/17 16:28 Date of admission: 12/08/17 21:14 Primary care physician: Trung Bernabe DO Consults: 12/09/17 00:02 Consult to Nephrology [CONS] Routine Consulting Provider: [facility] Reason for Consult: Poorly controlled HTN. WESLY Call Completed: No Consult to Neurology [CONS] Routine Consulting Provider: Neurology [facility] Reason for Consult: Confusion, memory loss Call Completed: No Discharging clinician: Quan Steinberg Anticipated date of discharge: 12/11/17 - Constitutional Vitals: Temp Pulse Resp BP Pulse Ox 97.6 F 68 18 170/73 94 12/11/17 07:00 12/11/17 07:00 12/11/17 07:00 12/11/17 07:00 12/11/17 07:00 General appearance: Present: A&O X 3, no acute distress, answers questions appropriately Exam: Gen.: Vitals noted. No acute distress. AAOx3 HEENT: PERRL/EOMI, oropharynx clear, Normocephalic, atraumatic Neck: Supple. No adenopathy. Cardiac: RRR, no murmur, +S1/S2 Pulmonary: CTA bilaterally, no wheezes, rales or rhonchi, equal chest expansion Abdomen: soft, nontender, BS noted, no guarding Back: Nontender throughout. MSK: ROM intact, no joint swelling noted Extremities: no BLE edema, nontender calf, no cyanosis or clubbing Neuro: A&Ox3, moves all extremities, no focal deficits Psych: Appropriate mood and behavior - Patient Status Disposition: Home, Self-Care Condition: Good Functional capacity at discharge: independent ambulation Overall status at discharge: patient is back to baseline - Ambulatory Orders Ambulatory Orders: Complete Blood Count [HEME] Time Frame: 1 Week, Location: any - Discharge Instructions Instructions: Nicardipine (By mouth), Chronic Hypertension (DC) Follow Up With: Trung Bernabe DO [Primary Care Provider] - Additional Instructions: The patient should follow-up with primary care and with nephrology in 3-5 days -Start Lipitor 40mg each night -Start Aspirin 81mg daily -Start Cardene 20mg PO TID Return to the ED for any similar symptoms of confusion, weakness, changes in consciousness, vision changes, or severe headache. Return to ED for BP >180/95 - Diet and Activity Activity: increase activity as tolerated Diet: advance to your usual diet <FarhanmojganShivam high - Last Filed: 12/11/17 17:42> Orders not resulted at time of discharge: Pending orders 12/10/17 02:54 VDRL AM 0400 Date of Encounter: 12/11/17 Hospital course: Ms. Barnes is a 62 year old female - Time Spent with Patient Total time spent providing and/or coordinating discharge services: Date of admission: 12/08/17 21:14 Primary care physician: Trung Bernabe DO Consults: 12/09/17 00:02 Consult to Nephrology [CONS] Routine Consulting Provider: [facility] Reason for Consult: Poorly controlled HTN. WESLY Call Completed: No Consult to Neurology [CONS] Routine Consulting Provider: Neurology [facility] Reason for Consult: Confusion, memory loss Call Completed: No - Constitutional Vitals: Temp Pulse Resp BP Pulse Ox 97.6 F 68 18 139/54 94 12/11/17 07:00 12/11/17 07:00 12/11/17 07:00 12/11/17 10:22 12/11/17 07:00 - Attending Attestation I examined this patient and my medical decision-making was reviewed with the Resident Physician Dr. Steinberg. I agree with the documented findings, disposition and treatment plan as described except to the extent set forth below. Ms. 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 Pt's BP stable with current medication. Pt denied any CP / headache today. She is alert, awake and O x 3. Medically stable to d/c home today
[2017-12-11 10:23] VITALS: BP 139/54
--- NOTE | 2017-12-13 21:21 | Electrocardiograph Report ---
[place] [id number] Test Date: 2017-12-08 Pat Name: Bridgette Barnes Department: 104 Room: 2N04 Gender: F Elevator Inspector: KARINA : 1955 Requested By: Shelli Le Order Number: [id number] Reading MD: Stanley Leal DO Measurements Intervals [place] Rate: 66 P: 59 VA: 201 QRS: -34 QRSD: 101 T: 34 QT: 406 QTc: 420 Interpretive Statements SINUS RHYTHM MARKED LEFT AXIS DEVIATION MODERATE VOLTAGE CRITERIA FOR LVH, CONSIDER NORMAL VARIANT Electronically Signed On 12-13-2017 21:19:36 EDT by Stanley Leal DO
== END 2017-12-11 11:05 | disposition home or self-care (01) ==
LOC: EMEROO 16:08 → 3BNU 16:08 → SUATTDRO 21:14 → 3BNU 21:33 → ICNU 12-09 02:12 → 2NNU 12-10 13:32
PROVIDERS: ADMIT Registered Nurse; ATTEND Internal Medicine

== ENCOUNTER 2021-02-25 12:23 | Observation (INO) ==
[2021-02-25] MEDS ORDERED: Naloxone 0.4 MG/ML INJ IVP PRN (15:34)
[2021-02-25] MEDS ORDERED: Ondansetron 4 MG/2 ML VIAL IVP PRN (15:36)
[2021-02-25] MEDS ORDERED: *HR* HYDROcodone/Acet 5/325 mg TABLET PO PRN (15:36)
[2021-02-25] MEDS ORDERED: *HR* Labetalol 20 MG/4 ML SYRINGE IVP PRN (15:40)
[2021-02-25] MEDS ORDERED: *HR* LORazepam 2 MG/ML VIAL IVP PRN (15:41)
[2021-02-25 16:36] LABS: Basophils % 0.5 %; Eosinophils # 0.2 K/mcL (0.0-0.6); Eosinophils % 2.1 %; Hematocrit 32.3 % (35.3-44.9); Hemoglobin 10.5 g/dL (11.5-15.4); Immature Granulocytes % 0.6 % (0-4); Lymphocytes # 1.4 K/mcL (0.6-4.6); Lymphocytes % 15.9 %; Mean Corpuscular HGB Conc 32.5 g/dL (31.6-35.5); Mean Corpuscular Volume 92.3 fL (83.0-100.0); Mean Platelet Volume 8.8 fL (9.4-12.4); Monocytes # 0.7 K/mcL (0.0-1.3); Monocytes % 8.6 %; Neutrophils # 6.1 K/mcL (1.6-8.9); Platelet Count 261 K/mcL (140-400); Red Cell Distribution Width 13.7 % (11.5-14.5); Segmented Neutrophils % 72.3 %; White Blood Count 8.5 K/mcL (4.3-11.1)
[2021-02-25 16:45] LABS: INR 1.1; Prothrombin Time 13.2 Seconds (9.4-12.1)
[2021-02-25 16:47] LABS: Activated Partial Thrombo Time 29.3 Seconds (26.0-36.0)
[2021-02-25 16:56] LABS: Albumin 4.2 g/dL (3.5-5.7); Albumin/Globulin Ratio 1.2 (1.1-2.2); Bilirubin,Total 0.6 mg/dL (0.3-1.0); Calcium 9.6 mg/dL (8.6-10.3); Globulin 3.5 g/dL (2.4-3.5); Magnesium 2.2 mg/dL (1.6-2.6); Phosphorous 4.5 mg/dL (2.7-4.5); Potassium 4.4 mEq/L (3.5-5.1); Total Protein 7.7 g/dL (6.4-8.9)
[2021-02-25] MEDS: *HR* Heparin 5,000 UNIT/ML VIAL SQ SCH (17:07)
[2021-02-25 19:28] LABS: Bilirubin,Urine Negative (Negative); Blood,Urine Small (Negative); Clarity,Urine Clear (Clear); Color,Urine Colorless (Yellow); Glucose,Urine (UA) Normal (Normal); Ketones,Urine Negative (Negative); Leukocyte Esterase,Urine Negative (Negative); Nitrite,Urine Negative (Negative); Protein,Urine 100 mg/dL (Neg-Trace); RBC,Urine 0-3 per hpf (0-3); Specific Gravity,Urine 1.006 (1.010-1.025); Squamous Epithelial Cell,Urine Few per hpf (None-Few); Urobilinogen,Urine Normal (Normal); WBC,Urine 0-3 per hpf (0-3)
[2021-02-26] MEDS: *HR* Heparin 5,000 UNIT/ML VIAL SQ SCH (06:10)
[2021-02-26] MEDS ORDERED: cloNIDine HCL 0.1 MG TABLET PO SCH (09:00)
[2021-02-26] MEDS ORDERED: Furosemide 40 MG TABLET PO SCH (09:00)
[2021-02-26] MEDS ORDERED: Isosorbide MONOnitrate (24 HR) 30 MG TAB.ER.24H PO SCH (09:00)
[2021-02-26] MEDS ORDERED: Aspirin Enteric Coated 81 MG Tablet PO SCH (09:00)
[2021-02-26 10:05] VITALS: BP 162/74
[2021-02-26] MEDS ORDERED: Divalproex (12 HR) 500 MG TABLET PO SCH (12:45)
== END 2021-02-26 15:25 | disposition home or self-care (01) ==
LOC: 3BNU → SUATTDRO 15:19 → 3BNU 15:26
PROVIDERS: ADMIT Internal Medicine; ATTEND Nurse Practitioner

== ENCOUNTER 2021-06-07 11:00 | Inpatient (IN) ==
[2021-06-07] MEDS ORDERED: Ipratropium/Albuterol Neb 3 ML IH ONE (11:18)
[2021-06-07] MEDS ORDERED: methylPREDNISolone 125 MG/2 ML VIAL IVP ONE (11:18)
[2021-06-07] MEDS ORDERED: Furosemide 40 MG/4 ML VIAL IVP ONE (11:20)
[2021-06-07] MEDS ORDERED: cefTRIAXone 1,000 MG in Water for inj. (sterile) 10 ML IVP ONE (11:24)
[2021-06-07] MEDS ORDERED: Azithromycin 500 MG in 0.9 % Sodium Chloride 250 ML IVPB ONE (11:25)
[2021-06-07 13:51] LABS: Adenovirus Not Detected (Not Detect); Coronavirus 229E Not Detected (Not Detect); Coronavirus HKU1 Not Detected (Not Detect); Coronavirus NL63 Not Detected (Not Detect); Coronavirus OC43 Not Detected (Not Detect); Human Metapneumovirus Not Detected (Not Detect); Human Rhinovirus/Enterovirus Not Detected (Not Detect); Influenza A Subtype 2009 H1 Not Detected (Not Detect); SARS-CoV-2 Not Detected (Not Detect)
[2021-06-07 13:52] LABS: Bordetella Pertussis Not Detected (Not Detect); Chlamydophila pneumoniae Not Detected (Not Detect); Influenza B Not Detected (Not Detect); Mycoplasma pneumoniae Not Detected (Not Detect); Parainfluenza Virus 1 Not Detected (Not Detect); Parainfluenza Virus 2 Not Detected (Not Detect); Parainfluenza Virus 3 Not Detected (Not Detect); Parainfluenza Virus 4 Not Detected (Not Detect); Respiratory Syncytial Virus Not Detected (Not Detect)
[2021-06-07 14:14] LABS: Basophils % 0.1 %; Hematocrit 24.2 % (35.3-44.9); Immature Granulocytes % 3.1 % (0-4); Lymphocytes # 0.2 K/mcL (0.6-4.6); Lymphocytes % 0.9 %; Mean Corpuscular HGB Conc 33.1 g/dL (31.6-35.5); Mean Corpuscular Hemoglobin 31.6 pg (28.0-33.3); Mean Corpuscular Volume 95.7 fL (83.0-100.0); Mean Platelet Volume 10.1 fL (9.4-12.4); Monocytes # 1.1 K/mcL (0.0-1.3); Neutrophils # 19.8 K/mcL (1.6-8.9); Platelet Count 184 K/mcL (140-400); Red Blood Count 2.53 M/mcL (3.82-4.97); Segmented Neutrophils % 90.9 %; White Blood Count 21.8 K/mcL (4.3-11.1)
[2021-06-07 14:33] LABS: INR 1.5; Prothrombin Time 17.4 Seconds (9.4-12.1)
[2021-06-07 14:35] LABS: Activated Partial Thrombo Time 28.5 Seconds (26.0-36.0)
[2021-06-07 14:44] LABS: Albumin 2.9 g/dL (3.5-5.7); Albumin/Globulin Ratio 0.9 (1.1-2.2); Alkaline Phosphatase 159 Units/L (34-104); Aspartate Amino Transferase 50 Units/L (13-39); BUN/Creatinine Ratio 12 (6-26); Bilirubin,Direct 0.8 mg/dL (0.0-0.2); Bilirubin,Indirect 0.6 mg/dL (0.0-1.0); Bilirubin,Total 1.4 mg/dL (0.3-1.0); Blood Urea Nitrogen 89 mg/dL (8-23); C-Reactive Protein > 300 mg/L (Less than 10); Carbon Dioxide 22 mEq/L (23-29); Chloride 86 mEq/L (98-107); Globulin 3.3 g/dL (2.4-3.5); Glucose 119 mg/dL (70-105); Lactate Dehydrogenase 170 Units/L (140-271); Magnesium 1.6 mg/dL (1.6-2.6); Osmolality,Calculated 286 (280-300); Phosphorous 4.7 mg/dL (2.7-4.5); Sodium 124 mEq/L (136-145); Total Protein 6.2 g/dL (6.4-8.9); eGFR For African Americans 6 (> 60); eGFR For Non-African Americans 5 (> 60)
[2021-06-07 15:14] LABS: Alanine Aminotransferase 78 Units/L (7-52); Ferritin > 1500 ng/mL (10-120)
[2021-06-07] MEDS ORDERED: Naloxone 0.4 MG/ML INJ IVP PRN (15:14)
[2021-06-07] MEDS ORDERED: Ondansetron ODT 4 MG TAB.RAPDIS SL PRN (15:14)
[2021-06-07] MEDS ORDERED: Acetaminophen 325 MG TABLET PO PRN (15:14)
[2021-06-07 15:37] LABS: Bilirubin,Urine Negative (Negative); Blood,Urine Large (Negative); Clarity,Urine Turbid (Clear); Color,Urine Yellow (Yellow); Glucose,Urine (UA) Normal (Normal); Ketones,Urine Negative (Negative); Leukocyte Esterase,Urine Small (Negative); Mucus,Urine Few per lpf (None-Few); Nitrite,Urine Negative (Negative); PH,Urine 5.5 pH Units (5.0-8.0); Protein,Urine 100 mg/dL (Neg-Trace); RBC,Urine TNTC per hpf (0-3); Specific Gravity,Urine 1.015 (1.010-1.025); Urobilinogen,Urine Normal (Normal); WBC,Urine 15-30 per hpf (0-3)
[2021-06-07] MEDS ORDERED: Vancomycin (wt based) 1,000 MG VIAL IVPB SCH (16:00)
[2021-06-07] MEDS ORDERED: Vancomycin 1,750 MG/517.5 ML IV.SOLN IVPB ONE (16:00)
[2021-06-07] MEDS ORDERED: *HR* Heparin 5,000 UNIT/ML VIAL IVP ONE (16:48)
[2021-06-07] MEDS ORDERED: *HR* Heparin 5,000 UNIT/ML VIAL IVP PRN ×2 (16:48)
[2021-06-07] MEDS: Dexamethasone Sodium Phos/PF 10 MG/ML VIAL IVP SCH (18:15)
[2021-06-07] MEDS: Piperacillin/Tazobactam 3.375 GM in 0.9 % Sodium Chloride Mini Bag 100 ML IVPB SCH (18:18)
[2021-06-07] MEDS: Heparin 25,000UNIT/250ML 1/2NS 25,000 UNIT/250 ML IV.SOLN IVC SCH (18:26)
[2021-06-07 19:10] LABS: Hematocrit 26.5 % (35.3-44.9); Hemoglobin 8.7 g/dL (11.5-15.4); Mean Corpuscular HGB Conc 32.8 g/dL (31.6-35.5); Mean Corpuscular Hemoglobin 31.6 pg (28.0-33.3); Mean Corpuscular Volume 96.4 fL (83.0-100.0); Red Blood Count 2.75 M/mcL (3.82-4.97)
[2021-06-07 19:11] LABS: Mean Platelet Volume 10.5 fL (9.4-12.4); Platelet Count 185 K/mcL (140-400); Red Cell Distribution Width 13.9 % (11.5-14.5); White Blood Count 29.6 K/mcL (4.3-11.1)
[2021-06-07 19:19] LABS: Heparin anti-factor XA UFH 0.04 IU/mL (0.30-0.70); INR 1.5; Prothrombin Time 17.5 Seconds (9.4-12.1)
[2021-06-07] MEDS ORDERED: *HR* Heparin 5,000 UNIT/ML VIAL SQ SCH (22:00)
[2021-06-07] MEDS: Melatonin 3 MG TABLET PO PRN (23:31)
[2021-06-07] MEDS: Ipratropium/Albuterol Neb 3 ML IH PRN (23:52)
[2021-06-08] MEDS: Ipratropium/Albuterol Neb 3 ML IH PRN (04:05)
[2021-06-08] MEDS ORDERED: *HR* LORazepam 2 MG/ML VIAL IVP ONE ×2 (04:14→04:54)
[2021-06-08] MEDS ORDERED: *HR* LORazepam 2 MG/ML VIAL ONE (04:19)
[2021-06-08] MEDS ORDERED: Haloperidol Lactate 5 MG/ML VIAL IVP ONE (04:50)
[2021-06-08 04:52] LABS: ABG Base Excess -3 mEq/L (-2 to 3); ABG HCO3 22 mEq/L (21-27); ABG Oxygen Saturation 87 % (95-98); ABG PCO2 37 mmHg (35-45); ABG PH 7.38 pH Units (7.32-7.45); ABG PO2 54 mmHg (85-104); ABG TCO2 23 mEq/L (20-26); Blood Gas Pressure Support 6 cm H2O
[2021-06-08] MEDS ORDERED: Furosemide 80 MG in 0.9 % Sodium Chloride 50 ML IVPB ONE (04:55)
[2021-06-08] MEDS ORDERED: Furosemide 40 MG/4 ML VIAL ONE (04:56)
[2021-06-08] MEDS ORDERED: Furosemide 80 MG in 0.9 % Sodium Chloride 50 ML IV ONE (05:15)
[2021-06-08] MEDS ORDERED: Furosemide 40 MG/4 ML VIAL IVP ONE (05:22)
[2021-06-08 05:25] LABS: Hemoglobin 8.1 g/dL (11.5-15.4); Mean Platelet Volume 10.8 fL (9.4-12.4); Platelet Count 157 K/mcL (140-400)
[2021-06-08 05:26] LABS: Hematocrit 24.4 % (35.3-44.9); Mean Corpuscular HGB Conc 33.2 g/dL (31.6-35.5); Mean Corpuscular Volume 96.4 fL (83.0-100.0); Red Blood Count 2.53 M/mcL (3.82-4.97); Red Cell Distribution Width 14.1 % (11.5-14.5); White Blood Count 28.5 K/mcL (4.3-11.1)
[2021-06-08 05:42] LABS: Calcium 8.5 mg/dL (8.6-10.3); Potassium 5.7 mEq/L (3.5-5.1)
[2021-06-08] MEDS ORDERED: Nitroglycerin 0 MG/0 ML INFUS..BTL IVC ONE (06:29)
[2021-06-08] MEDS: Piperacillin/Tazobactam 3.375 GM in 0.9 % Sodium Chloride Mini Bag 100 ML IVPB SCH ×3 (06:39→18:32)
[2021-06-08] MEDS ORDERED: 0.9 % Sodium Chloride 250 ML IVC PRN (07:27)
[2021-06-08] MEDS ORDERED: 0.9 % Sodium Chloride 1,000 ML PRIME SCH (07:30)
[2021-06-08] MEDS: Heparin 25,000UNIT/250ML 1/2NS 25,000 UNIT/250 ML IV.SOLN IVC SCH (08:26)
[2021-06-08 08:43] LABS: Adenovirus Not Detected (Not Detect); Bordetella Pertussis Not Detected (Not Detect); Chlamydophila pneumoniae Not Detected (Not Detect); Coronavirus 229E Not Detected (Not Detect); Coronavirus HKU1 Not Detected (Not Detect); Coronavirus NL63 Not Detected (Not Detect); Coronavirus OC43 Not Detected (Not Detect); Human Metapneumovirus Not Detected (Not Detect); Human Rhinovirus/Enterovirus Not Detected (Not Detect); Influenza A Subtype 2009 H1 Not Detected (Not Detect); Influenza B Not Detected (Not Detect); Mycoplasma pneumoniae Not Detected (Not Detect); Parainfluenza Virus 1 Not Detected (Not Detect); Parainfluenza Virus 2 Not Detected (Not Detect); Parainfluenza Virus 3 Not Detected (Not Detect); Parainfluenza Virus 4 Not Detected (Not Detect); Respiratory Syncytial Virus Not Detected (Not Detect); SARS-CoV-2 Not Detected (Not Detect)
[2021-06-08] MEDS ORDERED: *HR* LORazepam 2 MG/ML VIAL IVP STA (08:54)
[2021-06-08] MEDS: Dexamethasone Sodium Phos/PF 10 MG/ML VIAL IVP SCH (09:01)
[2021-06-08] MEDS ORDERED: Isovue-370 500 ML BOTTLE IVP ONE (09:56)
[2021-06-08 10:51] LABS: Hepatitis B Surface Antibody < 3.10 mIU/mL
[2021-06-08 11:02] LABS: Hepatitis B Surface Antigen Nonreactive (Nonreactive)
[2021-06-08 11:22] LABS: Acinetobacter baumannii by PCR Not Detected (Not Detect); Candida albicans by PCR Not Detected (Not Detect); Candida glabrata by PCR Not Detected (Not Detect); Candida krusei by PCR Not Detected (Not Detect); Candida parapsilosis by PCR Not Detected (Not Detect); Candida tropicalis by PCR Not Detected (Not Detect); Enterobacter cloacae Cmplx PCR Not Detected (Not Detect); Enterobacteriaceae by PCR Not Detected (Not Detect); Enterococcus by PCR Not Detected (Not Detect); Escherichia coli by PCR Not Detected (Not Detect); Klebsiella oxytoca by PCR Not Detected (Not Detect); Klebsiella pneumoniae by PCR Not Detected (Not Detect); Proteus by PCR Not Detected (Not Detect); Pseudomonas aeruginosa by PCR Not Detected (Not Detect); Serratia marcescens by PCR Not Detected (Not Detect); Staphylococcus aureus by PCR DETECTED (Not Detect); Streptococcus agalactiae(B)PCR Not Detected (Not Detect); Streptococcus by PCR Not Detected (Not Detect); Streptococcus pneumoniae PCR Not Detected (Not Detect); Streptococcus pyogenes (A) PCR Not Detected (Not Detect); mecA Methicillin-Resist Gene Not Detected (Not Detect)
[2021-06-08] MEDS ORDERED: Haloperidol Lactate 5 MG/ML VIAL IVP STA ×2 (12:19→13:41)
[2021-06-08] MEDS ORDERED: Haloperidol Lactate 5 MG/ML VIAL IM STA (12:19)
[2021-06-08] MEDS ORDERED: Darbepoetin 100 MCG/0.5 ML SYRINGE SQ SCH (12:30)
[2021-06-08] MEDS ORDERED: Ipratropium/Albuterol Neb 3 ML IH PRN (13:21)
[2021-06-08] MEDS: cloNIDine HCL 0.1 MG TABLET PO SCH ×2 (13:51→21:34)
[2021-06-08] MEDS: Ipratropium/Albuterol Neb 3 ML IH SCH ×2 (16:08→21:02)
[2021-06-08 16:58] LABS: ABG Base Excess 0 mEq/L (-2 to 3); ABG HCO3 24 mEq/L (21-27); ABG Oxygen Saturation 92 % (95-98); ABG PCO2 38 mmHg (35-45); ABG PH 7.41 pH Units (7.32-7.45); ABG PO2 63 mmHg (85-104); ABG TCO2 26 mEq/L (20-26)
[2021-06-08] MEDS ORDERED: Haloperidol Lactate 5 MG/ML VIAL IVP PRN (17:24)
[2021-06-08] MEDS: *HR* Heparin 5,000 UNIT/ML VIAL SQ SCH (18:31)
[2021-06-08 19:39] LABS: % Iron Saturation 41 % (15-50); Iron 54 mcg/dL (50-170); Transferrin 94 mg/dL (203-362)
[2021-06-08] MEDS ORDERED: Vancomycin 1 EACH in 0.9 % Sodium Chloride 250 ML IVPB SCH (21:00)
[2021-06-08] MEDS ORDERED: Vancomycin 500 MG in 0.9 % Sodium Chloride Mini Bag 100 ML IVPB ONE (21:00)
[2021-06-08] MEDS: Divalproex (12 HR) 500 MG TABLET PO SCH (21:34)
[2021-06-08] MEDS: Melatonin 3 MG TABLET PO PRN (21:35)
[2021-06-08] MEDS ORDERED: *HR* LORazepam 2 MG/ML VIAL IVP PRN (22:39)
[2021-06-09] MEDS ORDERED: 0.9 % Sodium Chloride 500 ML ONE (00:05)
[2021-06-09] MEDS ORDERED: Dexmedetomidine HCl 400 MCG/100 ML MLS IVC ONE (00:18)
[2021-06-09] MEDS ORDERED: *HR* Metoprolol 5 MG/5 ML VIAL IVP ONE ×2 (00:23→00:25)
[2021-06-09] MEDS ORDERED: 0.9 % Sodium Chloride 500 ML IV ONE (00:25)
[2021-06-09] MEDS ORDERED: Dexmedetomidine HCl 400 MCG/100 ML MLS IVC SCH (00:30)
[2021-06-09 00:34] LABS: Blood Gas Pressure Support 6 cm H2O; Mixed Venous Blood pCO2 35 mmHg (44-46); Mixed Venous Blood pH 7.42 pH Units (7.34-7.36); Mixed Venous Blood pO2 41 mmHg (35-45)
[2021-06-09] MEDS ORDERED: DilTIAZem 50 MG in 0.9 % Sodium Chloride 40 ML IVC SCH ×2 (00:45→04:25)
[2021-06-09 01:48] LABS: Basophils # 0.1 K/mcL (0.0-0.2); Basophils % 0.3 %; Hematocrit 23.2 % (35.3-44.9); Hemoglobin 7.8 g/dL (11.5-15.4); Immature Granulocytes % 4.2 % (0-4); Lymphocytes # 0.4 K/mcL (0.6-4.6); Lymphocytes % 1.8 %; Mean Corpuscular HGB Conc 33.6 g/dL (31.6-35.5); Mean Corpuscular Hemoglobin 32.4 pg (28.0-33.3); Mean Corpuscular Volume 96.3 fL (83.0-100.0); Mean Platelet Volume 11.1 fL (9.4-12.4); Monocytes # 1.5 K/mcL (0.0-1.3); Monocytes % 6.5 %; Neutrophils # 20.2 K/mcL (1.6-8.9); Platelet Count 138 K/mcL (140-400); Red Blood Count 2.41 M/mcL (3.82-4.97); Red Cell Distribution Width 14.2 % (11.5-14.5); Segmented Neutrophils % 87.2 %; White Blood Count 23.1 K/mcL (4.3-11.1)
[2021-06-09 02:00] LABS: Albumin 2.8 g/dL (3.5-5.7); Albumin/Globulin Ratio 0.9 (1.1-2.2); Bilirubin,Total 1.2 mg/dL (0.3-1.0); Calcium 8.7 mg/dL (8.6-10.3); Globulin 3.2 g/dL (2.4-3.5); Potassium 5.1 mEq/L (3.5-5.1); Troponin I 0.31 ng/mL (< 0.04)
[2021-06-09] MEDS: DilTIAZem 50 MG in 0.9 % Sodium Chloride 40 ML IVC SCH ×2 (02:40→04:59)
[2021-06-09 04:02] LABS: Magnesium 2.3 mg/dL (1.6-2.6)
[2021-06-09 04:15] LABS: INR 1.5
[2021-06-09 04:17] LABS: Activated Partial Thrombo Time 26.2 Seconds (26.0-36.0)
[2021-06-09] MEDS: Ipratropium/Albuterol Neb 3 ML IH SCH ×5 (04:46→21:58)
[2021-06-09] MEDS: *HR* Heparin 5,000 UNIT/ML VIAL SQ SCH ×2 (05:34→17:22)
[2021-06-09] MEDS: Piperacillin/Tazobactam 3.375 GM in 0.9 % Sodium Chloride Mini Bag 100 ML IVPB SCH ×2 (05:35→17:22)
[2021-06-09] MEDS: DilTIAZem 50 MG/50 ML IV.SOLN IVC SCH ×3 (05:48→20:12)
[2021-06-09] MEDS: Divalproex (12 HR) 500 MG TABLET PO SCH ×2 (08:28→20:00)
[2021-06-09] MEDS: cloNIDine HCL 0.1 MG TABLET PO SCH ×2 (08:28→20:00)
[2021-06-09] MEDS: Dexmedetomidine HCl 400 MCG/100 ML MLS IVC SCH ×2 (10:29→19:23)
[2021-06-09] MEDS: FentaNYL (PF) 1,000 MCG/100 ML IV.SOLN IVC SCH ×2 (10:30→21:51)
[2021-06-09] MEDS ORDERED: Perflutren Lipid Microsphere 1.3 ML in 0.9 % Sodium Chloride 8.7 ML IVP PRN (10:41)
[2021-06-09 11:53] LABS: ABG Base Excess 0 mEq/L (-2 to 3); ABG HCO3 25 mEq/L (21-27); ABG Oxygen Saturation 98 % (95-98); ABG PCO2 44 mmHg (35-45); ABG PH 7.37 pH Units (7.32-7.45); ABG PO2 106 mmHg (85-104); ABG TCO2 26 mEq/L (20-26); Blood Gas VT 450 cc
[2021-06-09 14:02] LABS: Acinetobacter baumannii by PCR Not Detected (Not Detect); Candida albicans by PCR Not Detected (Not Detect); Candida glabrata by PCR Not Detected (Not Detect); Candida krusei by PCR Not Detected (Not Detect); Candida parapsilosis by PCR Not Detected (Not Detect); Candida tropicalis by PCR Not Detected (Not Detect); Enterobacter cloacae Cmplx PCR Not Detected (Not Detect); Enterobacteriaceae by PCR Not Detected (Not Detect); Enterococcus by PCR Not Detected (Not Detect); Escherichia coli by PCR Not Detected (Not Detect); Klebsiella oxytoca by PCR Not Detected (Not Detect); Klebsiella pneumoniae by PCR Not Detected (Not Detect); Proteus by PCR Not Detected (Not Detect); Pseudomonas aeruginosa by PCR Not Detected (Not Detect); Serratia marcescens by PCR Not Detected (Not Detect); Staphylococcus aureus by PCR DETECTED (Not Detect); Streptococcus agalactiae(B)PCR Not Detected (Not Detect); Streptococcus by PCR Not Detected (Not Detect); Streptococcus pneumoniae PCR Not Detected (Not Detect); Streptococcus pyogenes (A) PCR Not Detected (Not Detect); mecA Methicillin-Resist Gene Not Detected (Not Detect)
[2021-06-09] MEDS ORDERED: *HR* Midazolam HCl 5 MG/5 ML VIAL IVP ONE (14:46)
[2021-06-09] MEDS ORDERED: *HR* Etomidate 20 MG/10 ML AMPUL IVP ONE (14:46)
[2021-06-09] MEDS ORDERED: *HR* Succinylcholine 200 MG/10 ML VIAL IVP ONE (14:46)
[2021-06-09] MEDS ORDERED: Artificial Tears SOLN 15 ML BOTTLE BOTH EYES PRN (17:10)
[2021-06-09] MEDS: Phenylephrine 10 MG in 0.9 % Sodium Chloride 250 ML IVC SCH (19:40)
[2021-06-09] MEDS: Chlorhexidine Rinse 15 ML MOUTHWASH MM SCH (19:50)
[2021-06-09] MEDS: Artificial Tears SOLN 15 ML BOTTLE BOTH EYES SCH ×2 (19:59→23:28)
[2021-06-09] MEDS: Valproic Acid INJ 500 MG in 0.9 % Sodium Chloride 100 ML IVPB SCH (21:45)
[2021-06-09 22:34] LABS: Calcium 8.4 mg/dL (8.6-10.3); Potassium 5.9 mEq/L (3.5-5.1)
[2021-06-10 00:17] LABS: ABG Base Excess -3 mEq/L (-2 to 3); ABG HCO3 21 mEq/L (21-27); ABG Oxygen Saturation 95 % (95-98); ABG PCO2 36 mmHg (35-45); ABG PH 7.38 pH Units (7.32-7.45); ABG PO2 79 mmHg (85-104); ABG TCO2 23 mEq/L (20-26); Blood Gas Modality ASSIST CONTROL; Blood Gas VT 420 cc
[2021-06-10] MEDS: DilTIAZem 50 MG/50 ML IV.SOLN IVC SCH ×2 (01:05→08:10)
[2021-06-10] MEDS: Artificial Tears SOLN 15 ML BOTTLE BOTH EYES SCH ×4 (03:04→18:04)
[2021-06-10 03:32] LABS: Nucleated Red Blood Cells 0.1 /100 WBC (0)
[2021-06-10 03:34] LABS: Hematocrit 22.9 % (35.3-44.9); Hemoglobin 7.4 g/dL (11.5-15.4); Mean Corpuscular HGB Conc 32.3 g/dL (31.6-35.5); Mean Corpuscular Hemoglobin 31.8 pg (28.0-33.3); Mean Corpuscular Volume 98.3 fL (83.0-100.0); Mean Platelet Volume 11.4 fL (9.4-12.4); Platelet Count 145 K/mcL (140-400); Red Blood Count 2.33 M/mcL (3.82-4.97); Red Cell Distribution Width 14.7 % (11.5-14.5)
[2021-06-10] MEDS: Ipratropium/Albuterol Neb 3 ML IH SCH ×3 (03:36→16:28)
[2021-06-10] MEDS: Dexmedetomidine HCl 400 MCG/100 ML MLS IVC SCH (03:39)
[2021-06-10 03:51] LABS: Calcium 8.5 mg/dL (8.6-10.3); Magnesium 2.8 mg/dL (1.6-2.6); Phosphorous 9.8 mg/dL (2.7-4.5); Potassium 6.2 mEq/L (3.5-5.1)
[2021-06-10 04:19] LABS: Lymphocytes # 1.7 K/mcL (0.6-4.6); Monocytes # 2.3 K/mcL (0.0-1.3); Neutrophils # 24.9 K/mcL (1.6-8.9); Platelet Estimate Normal (Normal)
[2021-06-10 05:04] LABS: ABG Base Excess -3 mEq/L (-2 to 3); ABG HCO3 22 mEq/L (21-27); ABG Oxygen Saturation 93 % (95-98); ABG PCO2 39 mmHg (35-45); ABG PH 7.36 pH Units (7.32-7.45); ABG PO2 68 mmHg (85-104); ABG TCO2 23 mEq/L (20-26); Blood Gas Modality ASSIST CONTROL; Blood Gas VT 420 cc
[2021-06-10] MEDS: Piperacillin/Tazobactam 3.375 GM in 0.9 % Sodium Chloride Mini Bag 100 ML IVPB SCH (05:30)
[2021-06-10] MEDS: *HR* Heparin 5,000 UNIT/ML VIAL SQ SCH (05:30)
[2021-06-10] MEDS: Chlorhexidine Rinse 15 ML MOUTHWASH MM SCH (08:37)
[2021-06-10] MEDS: Phenylephrine 10 MG in 0.9 % Sodium Chloride 250 ML IVC SCH ×2 (08:37→18:13)
[2021-06-10] MEDS: Valproic Acid INJ 500 MG in 0.9 % Sodium Chloride 100 ML IVPB SCH (09:28)
[2021-06-10] MEDS ORDERED: 0.9 % Sodium Chloride 250 ML IVC PRN (12:39)
[2021-06-10 15:03] VITALS: TEMP 98
[2021-06-10] MEDS: FentaNYL (PF) 1,000 MCG/100 ML IV.SOLN IVC SCH (15:38)
[2021-06-10] MEDS ORDERED: *HR* Heparin 5,000 UNIT/ML VIAL IVP PRN ×2 (15:39)
[2021-06-10] MEDS ORDERED: Heparin 25,000UNIT/250ML 1/2NS 25,000 UNIT/250 ML IV.SOLN IVC SCH (15:45)
[2021-06-10 17:14] LABS: Red Cell Distribution Width 14.9 % (11.5-14.5)
[2021-06-10 17:15] LABS: Hematocrit 27.8 % (35.3-44.9); Hemoglobin 9.1 g/dL (11.5-15.4); Mean Corpuscular HGB Conc 32.7 g/dL (31.6-35.5); Mean Corpuscular Hemoglobin 31.8 pg (28.0-33.3); Mean Corpuscular Volume 97.2 fL (83.0-100.0); Mean Platelet Volume 10.9 fL (9.4-12.4); Platelet Count 172 K/mcL (140-400); Red Blood Count 2.86 M/mcL (3.82-4.97)
[2021-06-10 17:26] LABS: INR 1.5; Prothrombin Time 17.3 Seconds (9.4-12.1)
[2021-06-10 17:27] LABS: Heparin anti-factor XA UFH 0.26 IU/mL (0.30-0.70)
[2021-06-10 17:30] LABS: White Blood Count 37.2 K/mcL (4.3-11.1)
[2021-06-10 17:38] VITALS: PULSE 117; O2SAT 98
[2021-06-10 17:50] VITALS: BP 96/86
[2021-06-10] MEDS ORDERED: levoFLOXacin 500 MG/100 ML 500 MG/100 ML BAG IVPB SCH (18:00)
[2021-06-10] MEDS ORDERED: MetroNIDAZOLE 500 MG/100 ML 500 MG/100 ML BAG IVPB SCH (20:00)
[2021-06-10] MEDS ORDERED: ceFAZolin 1,000 MG in Water for inj. (sterile) 10 ML IVP SCH (20:00)
== END 2021-06-10 19:19 | disposition short-term general hospital (02) | DRG 871 ==
LOC: EMEROOARM 11:00 → 2ANU 11:00 → SUATTDRO 17:45 → 2NNU 06-08 07:54
PROVIDERS: ADMIT Internal Medicine; ATTEND Internal Medicine

== ENCOUNTER 2021-08-13 14:51 | Observation (INO) ==
[2021-08-13 20:23] VITALS: TEMP 97.7
[2021-08-13] MEDS ORDERED: Ondansetron 4 MG/2 ML VIAL IVP PRN (21:52)
[2021-08-13] MEDS ORDERED: Naloxone 0.4 MG/ML INJ IVP PRN (21:52)
[2021-08-13 23:26] VITALS: BP 131/87; PULSE 126; O2SAT 94
== END 2021-08-14 01:05 | disposition short-term general hospital (02) ==
LOC: 2ANU
PROVIDERS: ADMIT Internal Medicine; ATTEND Internal Medicine